=== PATIENT | female | born 1955 | race Caucasian/White ===

== ENCOUNTER → 2016-09-02 | Outpatient (CLI) | payer BC ==
[~2016-09-02] MED LIST: ALBU18002 INH; CTP/1 PO; CTP1 PO; ESCI1TAB10 PO; GLC500 PO; METF-384 PO; OXYC-57 PO; PRM625 PO; SIMV20TA2 PO; VAREPAK PO
[2016-09-02 11:55] LABS: BLOOD UREA NITROGEN 23 mg/dl (7-18); BUN/CREATININE RATIO 18.8 (10-20); CALCIUM 8.5 mg/dl (8.5-10.1); CARBON DIOXIDE 29 mmol/L (21-32); CHLORIDE 110 mmol/L (98-107); GLUCOSE 100 mg/dl (70-99); POTASSIUM 4.3 mmol/L (3.5-5.1); SODIUM 144 mmol/L (136-145)
[2016-09-02 12:08] LABS: ALB/GLOB RATIO 1.1 (0.9-2); ALKALINE PHOSPHATASE 83 U/L (45-117); ALT/SGPT 27 U/L (12-78); AST/SGOT 12 U/L (15-37); CHOLESTEROL 150 mg/dl (0-200); CHOLESTEROL/HDL RATIO 3.8; HDL CHOLESTEROL 39 mg/dl; IMMUNOGLOBULN M 32.3 mg/dL (40-230); LDL CHOLESTEROL CALCULATED 90 mg/dl; TRIGLYCERIDES 107 mg/dl (0-150); VERY LOW DENSITY LIPOPROT CALC 21 mg/dl
[2016-09-02 12:55] LABS: ESTIMATED AVERAGE GLUCOSE 114 mg/dl; HA1C FLAG Normal (Normal)
== END | disposition home or self-care (01) ==
LOC: C.LAB1850 10:20
PROVIDERS: ATTEND Family Medicine
DX: E88.1 Lipodystrophy, not elsewhere classified (principal); D80.3 Selective deficiency of immunoglobulin G [IgG] subclasses; D80.4 Selective deficiency of immunoglobulin M [IgM]

== ENCOUNTER → 2016-09-09 | Outpatient (CLI) | payer BC ==
--- NOTE | 2016-09-09 11:18 | DIAGNOSTIC IMAGING REPORT ---
CHEST 2 VIEWS ROUTINE CLINICAL HISTORY: Z20.1 Tuberculosis [id number] COMPARISON STUDY: 04/29/2010 FINDINGS: The bones soft tissues and hemidiaphragms are normal. The cardiomediastinal silhouette is normal. The lungs are clear. The pulmonary vasculature is normal. IMPRESSION: Negative chest. Electronically signed by: Hima Shaffer M.D. 09/09/2016 11:17 AM Dictated Date/Time: 09/09/2016 11:17 AM
== END | disposition home or self-care (01) ==
LOC: C.RAD1850 10:57
PROVIDERS: ATTEND Specialist
DX: R05 Cough (principal); Z20.1 Contact with and (suspected) exposure to tuberculosis

== ENCOUNTER 2017-01-10 21:27 | Emergency (ER) | payer BC ==
[~2017-01-10] VITALS: Ht 167.6 cm; Wt 79.1 kg
[~2017-01-10 21:27] MED LIST changes: -CTP/1 PO; -METF-384 PO; -OXYC-57 PO; -PRM625 PO
[2017-01-10 21:31] VITALS: TEMP 36.3; Ht 167.6 cm; Wt 79.1 kg
[2017-01-10 22:11] VITALS: O2SAT 99
[2017-01-10] MEDS ORDERED: METF-384 PO (22:27)
[2017-01-10] MEDS ORDERED: CTP/1 PO (22:27)
[2017-01-10] MEDS ORDERED: PERCOCET HOME PACK PO ONE (23:15)
[2017-01-10] MEDS ORDERED: OXYCODONE/ACETAMINOPHEN 5-325 TAB PO ONE (23:15)
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
[2017-01-10] MEDS ORDERED: OXYC-57 PO (23:28)
[2017-01-10] MEDS ORDERED: DIPHTHERIA/TETANUS/PERTUSSIS 0.5 ML SYR/VIAL IM. ONE (23:30)
[2017-01-10 23:45] VITALS: BP 154/104; PULSE 74
== END 2017-01-11 00:10 | disposition home or self-care (01) ==
LOC: C.EDB 21:30 → C.EDD 01-11 00:10
DX: T23.021A Burn of unspecified degree of single right finger (nail) except thumb, initial encounter (principal); T31.0 Burns involving less than 10% of body surface; X10.2XXA Contact with fats and cooking oils, initial encounter; Z23 Encounter for immunization; Z79.899 Other long term (current) drug therapy

== ENCOUNTER → 2017-04-30 | Outpatient (CLI) | payer BC ==
[~2017-04-30] MED LIST changes: -ALBU18002 INH; +CTP/1 PO; -CTP1 PO; +GADAVIST IV PRN; -GLC500 PO; +METF-384 PO; -VAREPAK PO
--- NOTE | 2017-04-30 14:13 | DIAGNOSTIC IMAGING REPORT ---
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 The midline structures including the corpus callosum, brainstem, optic chiasm, pituitary and pineal gland are unremarkable in the sagittal T1 sequence. There is no cerebellar tonsillar herniation. Degenerative changes are seen within the imaged upper cervical spine. No acute intracranial hemorrhage, midline shift, abnormal extra-axial collections, hydrocephalus or intracranial mass identified. Patchy punctate foci of increased T2/FLAIR signal noted within the subcortical and periventricular white matter of the cerebral hemispheres bilaterally, slightly progressed from comparison study 02/10/2013, nicely seen on the coronal FLAIR images. There is no abnormal intra-axial or extra-axial enhancement identified. The major flow voids at the level of the skull base appear patent. Blooming artifact is noted adjacent to the feet for segment right vertebral artery, likely area of prior aneurysm coiling as seen on image 6 of series 5. The orbits are symmetric. Mastoid air cells are clear on the right with trace left mastoid effusion. Normal ethmoid sinus disease. IMPRESSION: 1. No acute intracranial abnormality. 2. Patchy punctate foci of T2/FLAIR prolongation within the subcortical and periventricular white matter of the cerebral hemispheres bilaterally has mildly progressed from comparison study 02/10/2013 suggesting chronic microvascular ischemic changes. 3. Blooming artifact adjacent to the V4 segment right vertebral artery likely reflects site of prior aneurysm coiling. The above report was generated using voice recognition software. It may contain grammatical, syntax or spelling errors. Electronically signed by: Romie Lewis M.D. 04/30/2017 2:12 PM Dictated Date/Time: 04/30/2017 2:01 PM
--- NOTE | 2017-04-30 14:17 | DIAGNOSTIC IMAGING REPORT ---
Brain MRA HISTORY: Z86.79 History of intracranial aneurysm [id number] TECHNIQUE: 3-D [id number] MRA of the brain was performed without contrast. COMPARISON STUDY: Brain MRA 07/08/2009. FINDINGS: Visualized intracranial internal carotid arteries, distal vertebral arteries, and basilar artery are widely patent. There is again noted a focal metallic artifact adjacent to the distal right vertebral artery measuring 5 mm. This likely represents the site of prior aneurysm coiling. There is no significant stenosis, occlusion, or aneurysm seen within the bilateral ACAs, MCAs, or left ADOLESCENT SPECIALIST. No significant change in the mild to moderate multifocal narrowing within the right mid to distal ADOLESCENT SPECIALIST. IMPRESSION: 1. No significant change in the mild to moderate multifocal narrowing in the mid to distal right ADOLESCENT SPECIALIST. 2. There is again noted a focal metallic artifact adjacent to the distal right vertebral artery measuring 5 mm. This likely represents the site of prior aneurysm coiling. Otherwise, no aneurysms identified. Electronically signed by: José Ford M.D. 04/30/2017 2:16 PM Dictated Date/Time: 04/30/2017 1:59 PM
== END | disposition home or self-care (01) ==
LOC: C.MRI 12:30
PROVIDERS: ATTEND Family Medicine
DX: Z86.79 Personal history of other diseases of the circulatory system (principal)

== ENCOUNTER → 2017-05-21 | Outpatient (CLI) | payer BC ==
[~2017-05-21] MED LIST changes: -GADAVIST IV PRN
--- NOTE | 2017-05-22 07:54 | MAMMOGRAPHY REPORT ---
BILATERAL DIGITAL SCREENING MAMMOGRAM TOMOSYNTHESIS WITH CAD: 05/21/2017 CLINICAL HISTORY: Routine screening. Patient has no complaints. TECHNIQUE: Breast tomosynthesis in addition to standard 2D mammography was performed. Current study was also evaluated with a Computer Aided Detection (CAD) system. COMPARISON: Comparison is made to exams dated: 05/20/2016 mammogram, 05/15/2015 mammogram, 4 mammogram, 05/18/2014 mammogram, 05/12/2014 mammogram, and 05/11/2013 mammogram - [facility]. BREAST COMPOSITION: The tissue of both breasts is heterogeneously dense, which may obscure small mas ses. FINDINGS: There is a multilobulated 11 x 8mm mass in the superior posterior right breast, only defin itely seen on the MLO view. Although this could represent a cyst cluster, definitive characterizatio n with targeted ultrasound and possible additional mammographic views are recommended. There is expected architectural distortion in the anterior left breast from prior surgical excision o f a papilloma. No other suspicious mass, architectural distortion or cluster of microcalcifications is seen. IMPRESSION: ACR BI-RADS CATEGORY 0: INCOMPLETE EVALUATION: NEED ADDITIONAL IMAGING EVALUATION The multilobulated 11 x 8mm mass in the superior right breast needs additional evaluation. The patient will be called to schedule an appointment. Approximately 10% of breast cancers are not detected with mammography. A negative mammographic report should not delay biopsy if a clinically suggestive mass is present. Ely Arroyo M.D. ay/:05/21/2017 16:34:16 Legal Operations Manager: Victoria KAPADIA(R)(Sheron)(BELA), [facility] letter sent: Addl Imaging 0 BI-RADS Code: ACR BI-RADS Category 0: Incomplete Evaluation: Need Additional Imaging Evaluation
== END | disposition home or self-care (01) ==
LOC: C.MAMM 10:32
PROVIDERS: ATTEND Family Medicine
DX: Z12.31 Encounter for screening mammogram for malignant neoplasm of breast (principal); N63.10 Unspecified lump in the right breast, unspecified quadrant

== ENCOUNTER → 2017-05-26 | Outpatient (CLI) | payer BC ==
--- NOTE | 2017-05-26 15:20 | MAMMOGRAPHY REPORT ---
ULTRASOUND OF RIGHT BREAST: 05/26/2017 CLINICAL HISTORY: 62-year-old woman called back from recent screening mammogram for an 11 x 8 mm lobu lated mass in the superior right breast on the MLO view. 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 COMPARISON: Comparison is made to exams dated: 05/21/2017 mammogram, 05/20/2016 mammogram, 5 mammogram, 05/12/2014 mammogram, 05/11/2013 mammogram, and 05/08/2012 mammogram - [facility]. FINDINGS: Targeted ultrasound was performed throughout the superior right breast to assess for the lo bulated mammographic mass. In the right 10:00 breast, 6 cm from the nipple, there is a multilobulate d mixed hypoechoic and anechoic cystic appearing mass measuring approximately 7.9 x 4.6 x 10.2 mm. N o increased vascularity is demonstrated. Although this could represent a cyst cluster, a papillary l esion or possibly DCIS could appear similar. Definitive characterization with an ultrasound guided c ore biopsy is recommended. IMPRESSION: ACR BI-RADS CATEGORY 4: SUSPICIOUS - FOLLOW-UP RECOMMENDED Right breast ultrasound guided core biopsy is recommended for a multilobulated cystic appearing mass measuring 10.2 mm in the 10:00 right breast, 6 cm from the nipple, that had increased mammographicall y and is indeterminate. These results and recommendations were discussed with the patient at the time of the exam. She tentat kathleenely scheduled the right breast ultrasound guided core biopsy prior to leaving our department. Ely Arroyo M.D. ay/:05/26/2017 11:27:00 Try Out Person: Ai KAPADIA(R)(M), [facility] letter sent: Abnormal 4/5 BI-RADS Code: ACR BI-RADS Category 4: Suspicious
== END | disposition home or self-care (01) ==
LOC: C.MAMM 09:15
PROVIDERS: ATTEND Family Medicine
DX: N63.10 Unspecified lump in the right breast, unspecified quadrant (principal)

== ENCOUNTER → 2017-06-03 | Outpatient (CLI) | payer BC ==
--- NOTE | 2017-06-03 11:28 | Discharge Instructions ---
Discharge Instructions Procedure Procedure Date: Jun 03, 2017. Reason for visit: Right Breast Mass. Discharge Discharge Date: Jun 03, 2017. Discharge Diagnosis: post right breast ultrasound guided core biopsy Instructions Activity Recommendations: Additional Limitations (see below) Return to School/Work: no limitations Recommended Home Diet: No Limitations Provider Instructions: ACTIVITY RECOMMENDATIONS: * No lifting, pushing, pulling or exercising the affected side for three days. RETURN TO SCHOOL/WORK: * You may return to work/school after the procedure, but do not perform any strenuous activities for 24 to 48 hours. MEDICATIONS: * Tylenol (two 325 mg) every four to six hours if needed for mild pain (if not allergic to Tylenol). DIET: * Resume previous diet. SPECIAL CARE INSTRUCTIONS: * Keep biopsy site dry for 24 hours. May shower after 24 hours, but do not soak (bathe) incision. * May remove Tegaderm (plastic patch) tomorrow AFTER showering. * Leave the steri-strips on for one week. Allow the steri-strips to fall off by themselves. If not off after one week, you may remove them. You may place a Bandaid crosswise over the strips, if desired. * Apply ice 10 minutes on and 10 minutes off as needed. * Wear a bra at bedtime to sleep more comfortably for 2-3 days. * Your referring physician should have the results after approximately 5 to 7 business days. * Call for unusual bleeding, fever, drainage, etc or if you have any questions call [phone] during normal business hours or after hours call Dr Arroyo, . FOLLOW UP VISIT: Follow-up with Referring Physician as scheduled. Allergies Coded Allergies: No Known Allergies (Verified , 10/14/16) Gui Fragoso Recommendations: Call your doctor if: * Temperature above 101 degrees * Pain not relieved by pain medicine ordered * There is increased drainage or redness from any incision * You have any unanswered questions or concerns. Your Doctors Instructions noted above were prepared by provider Ely Arroyo. Patient Signature Section: Patient Instructions Signature Page Matilda Jennings Patient (or Guardian) Signature/Date: I have read and understand the instructions given to me by my caregivers. Caregiver/RN/Doctor Signature/Date: The above-named patient and/or guardian has received patient instructions on this date. + Original Patient Signature Page (only) stays with chart. Please make copy for patient.
--- NOTE | 2017-06-03 15:10 | MAMMOGRAPHY REPORT ---
ULTRASOUND GUIDED BIOPSY RIGHT BREAST: 06/03/2017 CLINICAL HISTORY: Indeterminate multilobulated 10 mm mass in the upper outer posterior right breast, thought to correlate with an increasing mammographic mass. Patient has a history of left breast henry lloma status post excision. Patient presents for ultrasound-guided core needle biopsy. COMPARISON: Comparison is made to exams dated: 05/26/2017 ultrasound, 05/21/2017 mammogram, 6 mammogram, 05/15/2015 mammogram, and 07/19/2014 [facility]. PATIENT CONSENT: The procedure, risks and benefits were discussed with the patient and informed conse nt was obtained both verbally and in writing. Specific risks to this procedure include: bleeding, in fection, puncture of adjacent structure, nontarget biopsy, sampling error, pain, metal allergy and me dication reaction. PROCEDURE DESCRIPTION: A time out was performed and the right breast was agreed as the site of biopsy . The skin was prepped and draped in the usual sterile fashion. The multilobulated partially cystic m ass measuring 10 mm in the 10:00 to 11:00 right breast was chosen as the target for biopsy. Subcutane ous and intraparenchymal 1% buffered lidocaine, with and without epinephrine, was administered as loc al anesthesia. A skin incision was made. Through the incision, 4 samples were taken with a 14 gauge Achieve biopsy device. A ribbon shaped metallic marker was placed at the biopsy site. Hemostasis was achieved after manual compression. The patient tolerated the procedure well and there was no immediat e complication. The samples were sent to the pathology department in an appropriately labeled [facility]. Postprocedure right MLO and XCCL views were obtained. There is a new ribbon-shaped biopsy marker cli p and new focal asymmetry in the upper outer posterior right breast, in the area of previously observ ed multilobulated mass. No focal discrete hematoma is identified and asymmetry most likely represent s a combination of mild bleeding and lidocaine administration. IMPRESSION: ULTRASOUND GUIDED BIOPSY Status post ultrasound-guided core biopsy of an indeterminate 10 mm multilobulated mass in the 10:00 posterior right breast, with biopsy marker clip placed at the site. The patient will receive notification of the biopsy results from her referring physician. Ely Arroyo M.D. ay/:06/03/2017 12:22:31 Station Cook: Ai Knee RT(R)(M), [facility]
--- NOTE | 2017-06-03 15:12 | MAMMOGRAPHY REPORT ---
UNILATERAL RIGHT DIGITAL DIAGNOSTIC MAMMOGRAM TOMOSYNTHESIS: 06/03/2017 CLINICAL HISTORY: Status post ultrasound guided core biopsy of a multilobulated hypoechoic 10 mm mass in the upper outer 10:00 right breast. Please refer to the report from right breast ultrasound guided core biopsy performed at the same time for full detail. IMPRESSION: POST PROCEDURE IMAGING FOR MARKER PLACEMENT Please refer to the report from right breast ultrasound guided core biopsy performed at the same time for full detail. Approximately 10% of breast cancers are not detected with mammography. A negative mammographic report should not delay biopsy if a clinically suggestive mass is present. Ely Arroyo M.D. ay/:06/03/2017 11:29:57 Medical Office Worker: Ai KAPADIA(Brady)(M), [facility] BI-RADS Code: Post Procedure Imaging For Marker Placement
== END | disposition home or self-care (01) ==
LOC: C.MAMM 10:14
PROVIDERS: ATTEND Family Medicine
DX: N63.10 Unspecified lump in the right breast, unspecified quadrant (principal); N60.11 Diffuse cystic mastopathy of right breast; N60.81 Other benign mammary dysplasias of right breast

== ENCOUNTER 2022-04-17 09:59 | Inpatient (IN) ==
[2022-04-17] MEDS ORDERED: ACETAMINOPHEN 500 MG TAB PO STA (10:47)
[2022-04-17] MEDS ORDERED: ALBUT/IPRATROP 3MG/0.5MG NEB 3 ML VIAL NEB ONE (10:47)
[2022-04-17] MEDS ORDERED: SODIUM CHLORIDE 0.9% 1000ML 1,000 ML IV ONE (10:47)
[2022-04-17] MEDS ORDERED: dexAMETHasone**PF** 10 MG/ML VIAL IV ONE (10:47)
--- NOTE | 2022-04-17 10:50 | Emergency Department Note ---
Impression & Plan COPD with acute exacerbation, Elevated troponin, Pulmonary edema ED Provider Note Name: LYRIC MARTÍNEZ Age: 66 Sex: F Arrives Via: Walk-In Informant: Patient ED Provider: Bear Monroy MD Chief Complaint: Shortness of breath Impression: As per impressions above Medical Decision Makin-year-old female with a history of severe COPD though no significant CAD history arrives for evaluation of significantly worsening shortness of breath over the last few days. She also notes chills and low-grade fevers. On arrival patient is in significant distress she was tachycardic she has a low-grade fever and has diffuse wheezing all lung burn[place]. She was given an hour-long neb along with some IV steroids with presumption of COPD. Her chest x-ray however does show diffuse congestion consistent with pulmonary edema. Her EKG is unchanged from previous. She does have a evidence of elevated troponin as well. Unclear if this is all just secondary to viral infection, not COVID or flu Versus actual cardiac cause of pulmonary edema. Given the viral like illness, this could be a Cardiomyopathy which would go along with pulmonary edema, and copd flare se condary to viral as well. She was given aspirin but will hold off on heparin until further testing. I will note the patient appears much improved after initial neb. given her history of COPD the findings on examination and the fact she is improving with neb I think holding off on CTA at this time is reasonable. I have a low index of suspicion for PE given her improvement. Prior Medical Record and Triage/Nursing Notes reviewed by Me Additional history obtained from chart Differentials:Reactive airway disease, pneumonia, pneumothorax, COPD, CHF, infections, cardiac ischemia, pulmonary embolism, musculoskeletal, gastrointestinal, as well as other pathologies. Vital Signs: reviewed and remarkable for mild hypoxia Interventions: DuoNeb, aspirin, Solu-Medrol IV Labs:Reviewed and remarkable for elevated troponin Imagin view chest x-ray bilateral pulmonary infiltrates/edema EKG:Interpretation by me. Indication shortness of breath. Sinus tachycardia at 101 bpm and a QTC of 526. There is no ectopy nor ischemia. There is a left bundle branch block. When compared to EKG from May 18, 2019 there is not a significant change. Cardiac/Tele Monitoring: Cardiac Monitoring: An Order was placed for continuous cardiac monitoring. The monitor shows a rate of 90 with a normal sinus rhythm. Consults:Hospitalist Plan: Disposition: Hospitalization Condition: Good History of Present Illness:66-year-old female arrives for evaluation of illness. Patient with several days worsening fevers, chills, body aches, cough, congestion. Over the last day she notes she is getting significantly increased shortness of breath. She has a mild headache. Denies any neck stiffness or pain. Denies any visual changes, neurologic deficits or other concerning signs or symptoms. She is currently having no chest pain, abdominal pain, nausea, vomiting, back pain, urinary/bowel symptoms or other concerning signs or sy mptoms. No medications prior to arrival. Patient does have a history of COPD and notes she is started wheezing more over the last few days. Exertion makes worse and rest makes better. ROS: See above HPI for pertinent positives & negatives. A total of 10 systems reviewed and were otherwise negative. Past Medical History:See Below Past Surgical History:See Below Family History:See Below Social History:See Below Home Medications:See Below Allergies:ndka Vitals:Blood Pressure: 161/107, Pulse 95, RR 14, T 36.6C, O2 92% on RA Physical Exam: GENERAL: Patient is unwell appearing and in moderate distress. EYES: No scleral icterus, unremarkable pupils. ENT: Mucous membranes dry, no nasal congestion. NECK: No masses appreciated, nomeningismus, trachea is midline. RESPIRATORY: Tachypnea/dyspnea with diffuse wheezing and tight lung sounds. CARDIOVASCULAR: Tachy.No murmurs, rubs, gallops appreciated. GASTROINTESTINAL: Abdomen soft, non-tender, no peritonitis.Bowel sounds positive.No masses appreciated. BACK: No midline tenderness, no CVA tenderness EXTREMITIES: Normal motion all extremities, no cyanosis, no edema. NEUROLOGIC: Alert and oriented, no acute motor or sensory deficits, no focal weakness, cranial nerves grossly intact. SKIN: No rash, no jaundice, no diaphoresis. PSYCH: Appropriate GCS: 15 ED Course: Times/Reassessments: Patient is much improved after nebulizer treatment. We discussed her findings and the need for further work-up and she is agreeable to hospitalization. 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 no medications currently. No treatments needed at this time IgM deficiency follows with PCP LBBB (left bundle branch block) [facility] Prediabetes on metformin, last AIC 5.7% on 04/13/19 Sensorineural hearing loss of both ears Surgical History H/O breast biopsy RIGHT/LEFT History of biopsy of bladder History of cataract surgery R AND L History of cerebral aneurysm repair Endovascular repair PICA aneurysm (2005) History of colonoscopy History of cystoscopy History of elbow surgery RT History of partial hysterectomy History of surgery BONE SPUR REMOVED FROM COCCYX History of tooth extraction S/P tubal ligation Family History Grandmother (Paternal) Family history of diabetes mellitus Mother Diabetes Hypertension Stroke Brother Family history of diabetes mellitus Father Prostate cancer Melanoma Aortic aneurysm Hypertension Grandfather (Paternal) Lung cancer Denies family history of Ovarian cancer Breast cancer Colorectal cancer Social History Smoking Status: Current every day smoker Tobacco Type: Cigarettes Age Quit Using Tobacco: 65; Cigarettes Per Day: 20; Second Hand Exposure: No; Hx Alcohol Use: No Hx Substance Use: No Preferred Language: Welsh Communication Ability: Effective Visual Impairment: No Limitations Hearing Ability: Normal Plate Finisher Required: No Beliefs That Will Affect Care: None marital status: Current Living Situation: Alone current occupational status: retired Feels Safe at Home: Yes Childhood Exposure to Second-Hand Smoke: Yes Diet Comment: regular caffeine: Yes during the past year weight has: remained stable Dental Care, Regularly: Yes Physical Activity Frequency: 1-2 Times per Week Seatbelt Use: always Sunscreen Use: Yes Assistive Devices: None Allergies Allergies Allergy/AdvReac Type Severity Reaction Status Date / Time No Known Drug Allergies Allergy Verified 11/22/21 13:25 Home Meds Home Medications Medication Instructions Recorded Confirmed lisinopril 5 mg tablet 5 mg PO QAM 11/22/21 04/17/22 Previous Rx's Medication Instructions Recorded albuterol sulfate 90 mcg/actuation 1 puff inhalation Q4H PRN sob #8.5 04/05/21 aerosol inhaler (Ventolin HFA) grams fluticasone fur. 100 mcg-umeclid 1 inh inhalation QAM #3 Inhalers 04/05/21 62.5 mcg-vilant 25 mcg inhalat.powder (Trelegy Ellipta) metoprolol succinate 25 mg 25 mg PO QAM #90 tabs 09/25/21 tablet,extended release 24 hr metformin 1,000 mg tablet 1,000 mg PO QAM #90 tabs 11/05/21 simvastatin 20 mg tablet 20 mg PO QAM #90 tabs 11/16/21 valacyclovir 1 gram tablet 2,000 mg PO BID PRN Cold Sores #30 11/22/21 tabs venlafaxine 150 mg 150 mg PO DAILY #30 caps 11/22/21 capsule,extended release 24 hr clonidine HCl 0.1 mg tablet 0.1 mg PO BID #180 tabs 02/15/22 Results & Data (ED) Vital Signs Vital Signs - 24 hr 04/17/22 10:04 04/17/22 10:12 04/17/22 10:30 Temperature 36.6 C Temperature Source Temporal Artery Scan Pulse Rate 95 H Pulse Rate [Apical] Respiratory Rate 14 Respiratory Effort / Characteristics Respiratory Depth Blood Pressure 161/107 H Blood Pressure [Left Arm] Blood Pressure Mean 125 Blood Pressure Mean [Left Arm] Pulse Oximetry 95 93 92 Oxygen Delivery Method Room Air Room Air Room Air Sepsis Recent Fever Within 48 Hours No Sepsis New/Unexplained Change in Mental Status No Sepsis Action Taken by Nursing No Action Required 04/17/22 10:48 04/17/22 11:52 04/17/22 12:00 Temperature Temperature Source Pulse Rate Pulse Rate [Apical] 88 86 85 Respiratory Rate 28 H 16 18 Respiratory Effort / Characteristics Non-Labored Spontaneous Non-Labored Spontaneous Non-Labored Spontaneous Respiratory Depth Normal Normal Blood Pressure Blood Pressure [Left Arm] 145/102 H 146/106 H Blood Pressure Mean Blood Pressure Mean [Left Arm] 116 119 Pulse Oximetry 92 98 99 Oxygen Delivery Method Room Air Room Air Room Air Sepsis Recent Fever Within 48 Hours Sepsis New/Unexplained Change in Mental Status Sepsis Action Taken by Nursing Laboratory Data Result diagrams: 04/18/22 03:19 04/18/22 03:19 Lab Results 04/17/22 04/17/22 04/17/22 Range/Units 10:20 10:20 10:20 WBC 8.95 (4.8-10.8) K/ul RBC 4.08 (3.93-5.22) M/uL Hgb 13.5 (12.0-16.0) g/dl Hct 40.5 (34.1-44.9) % MCV 99.3 (80.0-100.0) fL MCH 33.1 (25.0-34.0) pg MCHC 33.3 (32.0-36.0) g/dL RDW Std Deviation 46.7 H (36.4-46.3) fL RDW Coeff of Trav 12.8 (11.5-14.5) % Plt Count 357 (130-400) K/uL MPV 10.7 (9.4-12.3) fL Immature Gran % (Auto) 0.3 % Neut % (Auto) 71.2 % Lymph % (Auto) 22.6 % Traill % (Auto) 5.6 % Eos % (Auto) 0.0 % Baso % (Auto) 0.3 % Neut # (Auto) 6.37 (1.4-6.5) K/uL Lymph # (Auto) 2.02 (1.2-3.4) K/uL Traill # (Auto) 0.50 (0.24-0.82) K/uL Eos # (Auto) 0.00 (0-0.50) K/uL Baso # (Auto) 0.03 (0-0.2) K/uL Immature Gran # (Auto) 0.03 H (0.00-0.02) K/uL Sodium 143 (136-145) mmol/L Potassium 3.8 (3.5-5.1) mmol/L Chloride 108 H (98-107) mmol/L Carbon Dioxide 26 (21-32) mmol/L Anion Gap 9 (3-11) BUN 20 (6-23) mg/dl Creatinine 1.05 (0.6-1.2) mg/dl Est Cr Clr Drug Dosing 52.8 ml/min Est GFR ( Amer) 63.2 ml/min Est GFR (Non-Af Amer) 54.5 ml/min BUN/Creatinine Ratio 19.0 (10-20) Glucose 103 H (70-99(Fasting)) mg/dl Lactate (0.4-2.0) mmol/L Calcium 9.5 (8.5-10.1) mg/dl Magnesium 2.1 (1.7-2.4) mg/dl Troponin I High Sens 40.2 H (0-14) pg/ml Procalcitonin < 0.05 (0-0.5) ng/ml Adenovirus (PCR) (NotDetected) B. pertussis DNA (PCR) (NotDetected) B.parapertussis DNA PCR (NotDetected) C. pneumoniae DNA (PCR) (NotDetected) Coronavirus OC43 (PCR) (NotDetected) Coronavirus HKU1 (PCR) (NotDetected) Coronavirus 229E (PCR) (NotDetected) SARS-CoV-2 (PCR) (Negative) Coronavirus NL63 (PCR) (NotDetected) Human Metapneumovir PCR (NotDetected) Influenza Type A (PCR) (Neg) Influenza Type B (PCR) (Neg) M. pneumoniae (PCR) (NotDetected) Parainfluenza 1 (PCR) (NotDetected) Parainfluenza 2 (PCR) (NotDetected) Parainfluenza 3 (PCR) (NotDetected) Parainfluenza 4 (PCR) (NotDetected) RSV (RT-PCR) (Neg) RSV (PCR) (NotDetected) Entero/Rhino (PCR) (NotDetected) 04/17/22 04/17/22 04/17/22 Range/Units 11:22 11:22 11:38 WBC (4.8-10.8) K/ul RBC (3.93-5.22) M/uL Hgb (12.0-16.0) g/dl Hct (34.1-44.9) % MCV (80.0-100.0) fL MCH (25.0-34.0) pg MCHC (32.0-36.0) g/dL RDW Std Deviation (36.4-46.3) fL RDW Coeff of Trav (11.5-14.5) % Plt Count (130-400) K/uL MPV (9.4-12.3) fL Immature Gran % (Auto) % Neut % (Auto) % Lymph % (Auto) % Traill % (Auto) % Eos % (Auto) % Baso % (Auto) % Neut # (Auto) (1.4-6.5) K/uL Lymph # (Auto) (1.2-3.4) K/uL Traill # (Auto) (0.24-0.82) K/uL Eos # (Auto) (0-0.50) K/uL Baso # (Auto) (0-0.2) K/uL Immature Gran # (Auto) (0.00-0.02) K/uL Sodium (136-145) mmol/L Potassium (3.5-5.1) mmol/L Chloride (98-107) mmol/L Carbon Dioxide (21-32) mmol/L Anion Gap (3-11) BUN (6-23) mg/dl Creatinine (0.6-1.2) mg/dl Est Cr Clr Drug Dosing ml/min Est GFR ( Amer) ml/min Est GFR (Non-Af Amer) ml/min BUN/Creatinine Ratio (10-20) Glucose (70-99(Fasting)) mg/dl Lactate 1.2 (0.4-2.0) mmol/L Calcium (8.5-10.1) mg/dl Magnesium (1.7-2.4) mg/dl Troponin I High Sens (0-14) pg/ml Procalcitonin (0-0.5) ng/ml Adenovirus (PCR) Not Detected (NotDetected) B. pertussis DNA (PCR) Not Detected (NotDetected) B.parapertussis DNA PCR Not Detected (NotDetected) C. pneumoniae DNA (PCR) Not Detected (NotDetected) Coronavirus OC43 (PCR) Not Detected (NotDetected) Coronavirus HKU1 (PCR) Not Detected (NotDetected) Coronavirus 229E (PCR) Not Detected (NotDetected) SARS-CoV-2 (PCR) NEGATIVE Not Detected (Negative) Coronavirus NL63 (PCR) Not Detected (NotDetected) Human Metapneumovir PCR Not Detected (NotDetected) Influenza Type A (PCR) Negative Not Detected (Neg) Influenza Type B (PCR) Negative Not Detected (Neg) M. pneumoniae (PCR) Not Detected (NotDetected) Parainfluenza 1 (PCR) Not Detected (NotDetected) Parainfluenza 2 (PCR) Not Detected (NotDetected) Parainfluenza 3 (PCR) Not Detected (NotDetected) Parainfluenza 4 (PCR) Not Detected (NotDetected) RSV (RT-PCR) Negative (Neg) RSV (PCR) Not Detected (NotDetected) Entero/Rhino (PCR) Not Detected (NotDetected) Administered Medications Albuterol (Albut/Ipratrop 3mg/0.5mg Neb 3 Ml Vial) 3 ml INH Q6R KELLIE Stop: 05/17/22 15:08 Last Admin: 04/18/22 07:08 Dose: 3 ml Documented By: Admin: 04/18/22 00:39 Dose: 3 ml Documented By: Admin: 04/17/22 20:10 Dose: 3 ml Documented By: Admin: 04/17/22 15:58 Dose: 3 ml Documented By: ZOIE Clonidine HCl (Clonidine Hcl 0.1 Mg Tab) 0.1 mg PO BID KELLIE Stop: 05/17/22 20:59 Last Admin: 04/18/22 08:21 Dose: 0.1 mg Documented By: Admin: 04/17/22 20:14 Dose: 0.1 mg Documented By: Fluticasone Furoate (Fluticasone Furoate 100mcg 14 Puffs/Inhaler) 1 puffs INH DAILY KELLIE Stop: 05/18/22 08:59 Last Admin: 04/18/22 08:22 Dose: 1 puffs Documented By: OBED Guaifenesin (Guaifenesin 600 Mg Tabcr) 1,200 mg PO BID KELLIE Stop: 05/17/22 20:59 Last Admin: 04/18/22 08:21 Dose: 1,200 mg Documented By: Admin: 04/17/22 20:14 Dose: 1,200 mg Documented By: Doxycycline Hyclate 100 mg/ (Dextrose) 110 mls @ 50 mls/hr IV Q12H KELLIE Stop: 04/20/22 23:59 Last Infusion: 04/18/22 03:16 Dose: 0 mls/hr Documented By: Admin: 04/18/22 00:53 Dose: 50 mls/hr Documented By: STEVIE Lisinopril (Lisinopril 5 Mg Tab) 5 mg PO QAM [facility] Stop: 05/18/22 08:59 Last Admin: 04/18/22 08:22 Dose: 5 mg Documented By: OBED Metoprolol Succinate (Metoprolol Succ 25mg Ext Rel Tab) [facility] [place] Stop: 05/18/22 08:59 Last Admin: 04/18/22 08:21 Dose: 25 mg Documented By: OBED Simvastatin (Simvastatin 20 Mg Tab) [facility] [place] Stop: 05/18/22 08:59 Last Admin: 04/18/22 08:23 Dose: 20 mg Documented By: OBED Umeclidinium/Vilanterol (Umeclidinium/Vilanterol 62.5/25mcg 7 Puffs/Inhaler) 1 puffs INH DAILY KELLIE Stop: 05/18/22 08:59 Last Admin: 04/18/22 08:23 Dose: 1 puffs Documented By: OBED Venlafaxine HCl (Venlafaxine Hcl Xr 150 Mg Capxr) 150 mg PO DAILY KELLIE Stop: 05/18/22 08:59 Last Admin: 04/18/22 08:22 Dose: 150 mg Documented By: OBED Discontinued Medications Acetaminophen (Acetaminophen 500 Mg Tab) 1,000 mg PO NOW STA Stop: 04/17/22 10:48 Last Admin: 04/17/22 11:35 Dose: 1,000 mg Documented By: ROSA Albuterol (Albut/Ipratrop 3mg/0.5mg Neb 3 Ml Vial) 12 ml NEB ONE ONE; Protocol Stop: 04/17/22 10:48 Last Admin: 04/17/22 11:50 Dose: 12 ml Documented By: YAZMIN Aspirin (Aspirin 81 Mg Chew) 324 mg PO NOW STA Stop: 04/17/22 12:19 Last Admin: 04/17/22 12:30 Dose: 324 mg Documented By: ROSA Dexamethasone Sodium Phosphate (DexamethasonePf 10 Mg/Ml Vial) 10 mg IV NOW ONE Stop: 04/17/22 10:48 Last Admin: 04/17/22 11:35 Dose: 10 mg Documented By: ROSA Furosemide (Furosemide Inj 20 Mg/2 Ml Vial) 20 mg IV ONE ONE Stop: 04/17/22 14:04 Last Admin: 04/17/22 14:43 Dose: 20 mg Documented By: [id number] Sodium Chloride (Nss 1000ml) 1,000 mls @ 999 mls/hr IV .Q1H1M ONE Stop: 04/17/22 11:47 Last Infusion: 04/17/22 19:38 Dose: 0 mls/hr Documented By: Infusion: 04/17/22 12:13 Dose: 0 mls/hr Documented By: Admin: 04/17/22 11:37 Dose: 999 mls/hr Documented By: ROSA Doxycycline Hyclate 100 mg/ (Dextrose) 110 mls @ 50 mls/hr IV NOW STA Stop: 04/17/22 14:48 Last Infusion: 04/17/22 15:34 Dose: 0 mls/hr Documented By: [id number] Admin: 04/17/22 12:54 Dose: 50 mls/hr Documented By: ROSA Methylprednisolone 40 mg/ (Syringe) 0.64 mls @ 1.5 mls/min IV Q8H KELLIE Stop: 05/17/22 17:59 Last Admin: 04/18/22 00:53 Dose: 1.5 mls/min Documented By: Admin: 04/17/22 17:22 Dose: 1.5 mls/min Documented By: [id number] Imaging Data Radiologist's Impression: Chest X-Ray 04/17/22 10:48 XR chest 1V portable CLINICAL HISTORY: fever, shob, cough COMPARISON STUDY: Chest radiograph August 19, 2019. Chest CT May 03, 2021. FINDINGS: There is no pneumothorax. Small bilateral pleural effusions are noted with bibasilar opacities. Interstitial thickening favors pulmonary edema. Mild cardiomegaly is noted. IMPRESSION: 1. Interstitial thickening suggestive of pulmonary edema. 2. Small bilateral pleural effusions. Associated bibasilar opacities favor atelectasis however pneumonia could appear similar. Radiographic follow-up is recommended. ACT 112: Negative or not required by law. Electronically signed by: Pablo Mcgowan M.D. 04/17/2022 11:27 AM Discharge Plan Visit Data Chief Complaint: Shortness of Breath/Dyspnea Stated Complaint: TROUBLE CATCHING BREATH, FEVER, HEADACHE ED Provider: Bear Monroy Discharge Problem: COPD with acute exacerbation, Elevated troponin, Pulmonary edema Patient Disposition: Admitted As Inpatient Discharge Instructions Interventions: ED Discharge Assessment Last Done: 04/17/22 14:20 : Pulmonary edema Qualifiers: Chronicity: acute Qualified Code(s): J81.0 - Acute pulmonary edema
[2022-04-17 11:12] LABS: Basophils # (auto) 0.03 K/uL (0-0.2); Basophils % (auto) 0.3 %; Hematocrit (blood only) 40.5 % (34.1-44.9); Hemoglobin 13.5 g/dl (12.0-16.0); Immature Granulocytes # (auto) 0.03 K/uL (0.00-0.02); Immature Granulocytes % (auto) 0.3 %; Lymphocytes # (auto) 2.02 K/uL (1.2-3.4); Lymphocytes % (auto) 22.6 %; Mean Corpuscular Hemoglobin 33.1 pg (25.0-34.0); Mean Corpuscular Hgb Conc 33.3 g/dL (32.0-36.0); Mean Corpuscular Volume 99.3 fL (80.0-100.0); Mean Platelet Volume 10.7 fL (9.4-12.3); Monocytes % (auto) 5.6 %; Neutrophils # (auto) 6.37 K/uL (1.4-6.5); Neutrophils % (auto) 71.2 %; Platelet Count 357 K/uL (130-400); RDW Coefficient of Variation 12.8 % (11.5-14.5); RDW Standard Deviation 46.7 fL (36.4-46.3); Red Blood Count 4.08 M/uL (3.93-5.22); White Blood Count 8.95 K/ul (4.8-10.8)
--- NOTE | 2022-04-17 11:29 | XRay Report ---
XR chest 1V portable CLINICAL HISTORY: fever, shob, cough COMPARISON STUDY: Chest radiograph August 19, 2019. Chest CT May 03, 2021. FINDINGS: There is no pneumothorax. Small bilateral pleural effusions are noted with bibasilar opacit ies. Interstitial thickening favors pulmonary edema. Mild cardiomegaly is noted. IMPRESSION: 1. Interstitial thickening suggestive of pulmonary edema. 2. Small bilateral pleural effusions. Associated bibasilar opacities favor atelectasis however pneum onia could appear similar. Radiographic follow-up is recommended. ACT 112: Negative or not required by law. Electronically signed by: Pablo Mcgowan M.D. 04/17/2022 11:27 AM
[2022-04-17 11:38] LABS: Troponin I High Sensitivity 40.2 pg/ml (0-14)
[2022-04-17 11:43] LABS: Calcium 9.5 mg/dl (8.5-10.1); Creatinine Clr Calc Pharmacy 52.8 ml/min; Est GFR (African American) 63.2 ml/min; Est GFR (Non-African American) 54.5 ml/min; Magnesium 2.1 mg/dl (1.7-2.4); Potassium 3.8 mmol/L (3.5-5.1)
[2022-04-17 12:06] LABS: Influenza A virus by PCR Negative (Neg); Influenza B virus by PCR Negative (Neg); RSV by PCR Negative (Neg); SARS CoV2 RNA(COVID-19) InHosp NEGATIVE (Negative)
--- NOTE | 2022-04-17 12:17 | History & Physical Report ---
Date of Service April 17, 2022 Assessment & Plan (1) COPD exacerbation: Plan: - Patient has 5 days of flulike symptoms including fever/chills, cough, congestion, shortness of breath, body aches. - History of COPD, has rescue inhaler as needed, has not required for many months but has been relying on this week, as well as her Trelegy which she also uses as needed, however has been taking daily this week with minimal alleviation. - CXR shows interstitial thickening stress of pulmonary edema, bibasilar atelectasis, no obvious pneumonia. - Labs are largely unrevealing, the without leukocytosis, elevated Pro-Félix, lactate. - In the ED, received nebulizer treatment and 10 mg IV dexamethasone and feels slightly better than she did on arrival. - Treat with Solu-Medrol 40 mg every 8 hours, DuoNebs scheduled and as needed throughout the night, continue home inhalers, doxycycline twice daily (QTC of 523). - She has no history of CAD or heart failure, but CXR is indicative of pulmonary edema, therefore will give low-dose of IV Lasix to see if this alleviates any of her symptoms. - COVID/flu/RSV negative, however with symptoms suspicious of viral infection, will order bio fire respiratory panel. - Mucinex, Tylenol for supportive care. (2) Elevated troponin: Plan: - Elevated at 40, repeat 2 hours later 43, will trend while admitted and obtain echo. - Currently chest pain-free, but has had several episodes of "elephant on my chest" that lasted for several hours over the past several months, which is certainly concerning for underlying CAD/unstable angina. Patient notes it does come on with both activity and rest. - EKG: Normal sinus rhythm Possible Left atrial enlargement Left axis deviation Left bundle branch block Abnormal ECG When compared with ECG of 17-APR-2022 10:16, (unconfirmed) No significant change was found - LBBB is not a new finding, previously seen on EKG from 2018. - He previously followed with cardiology, last seen in 2019 for LBBB and atypical chest discomfort, at that point was only occurring at rest. * Nuclear stress test August 2019: Abnormal, suggesting anteroseptal infarction based lateral infarct, moderately reduced LV SF, EF 39% with global hypokine sis. * Echo September 2019: Lownormal LV systolic function with no regional wall motion abnormalities. Mild-moderate MR. - Consult cardiology. (3) History of tobacco use: Plan: - Currently smoking 1/3 pack/day and declines nicotine patch while admitted. - Patient educated on tobacco cessation to avoid further COPD exacerbations and hospitalizations. (4) Bladder neoplasm of uncertain malignant potential: Plan: - History of such, undergoes surveillance cystoscopies, last on 02/06/2022. We will continue to follow-up annually. (5) Prediabetes: Plan: - Hold metformin. A1c in October was 5.9%. - Recheck A1c in AM. Will hold off on Accu-Cheks/sliding scale insulin for now. (6) Dyslipidemia: Plan: - Continue simvastatin. (7) Hypertension: Plan: - Continue clonidine 0.1 mg twice daily, metoprolol 25 mg in a.m., lisinopril 5 mg in AM. (8) Depression with anxiety: Plan: - Continue venlafaxine. Plan - Admit to med/telemetry. - SCDs for DVT PPx. - DNR/DNI. History of Present Illness Chief Complaint: Flulike symptoms x5 days Primary Care Provider: Anabela Echevarria DO Matilda Jennings is a 66-year-old female with a past medical history significant for COPD, bladder cancer, depression and anxiety, dyslipidemia, hypertension, who presents today with shortness of breath complaints of feeling generally ill. Starting Friday, she developed body aches, cough, and nasal congestion. Over the next day or so, she began to experience chills and felt like she had a fever at home. Her symptoms have gradually worsened and she is feeling short of breath and having a hard time laying flat due to shortness of breath and cough. No one at home is sick and she denies any known exposure to COVID or flu positive people. Does have a history of COPD and continues to smoke 1/3 pack/day, has Trelegy inhaler prescribed once daily with rescue inhaler as needed. She typically does not use either of these, but for the past week has been relying on both with minimal improvement. She is becoming winded with minimal activity and can no longer take care of her self at home. Patient denies any specific chest pain at this moment or over the past few days, but does report for the past several months she has had chest fullness "like an elephant is on my chest" that last for several hours before going away on its own. This happens both at rest and with activity it does not seem to be exacer bated by either. Again, not having any current chest pain, back pain, shoulder/arm/neck/jaw pain. No nausea, vomiting, abdominal pain, urinary symptoms. Upon presentation to the ED, she is mildly hypertensive, otherwise vital signs within normal limits and stable. SpO2 >90% on room air. Labs largely unremarkable, she does not have an elevated WBC, elevated Pro-Félix, and is COVID/flu/RSV negative. Initial troponin elevated at 40, repeat troponin slightly increased to 43. Her CXR shows interstitial thickening suggestive of pulmonary edema and small bilateral pleural effusions. Allergies Allergy/AdvReac Type Severity Reaction Status Date / Time No Known Drug Allergies Allergy Verified 11/22/21 13:25 Home Medications Medication Instructions Recorded Confirmed Type albuterol sulfate 90 mcg/actuation 1 puff inhalation Q4H PRN sob #8.5 04/05/21 04/17/22 Rx aerosol inhaler (Ventolin HFA) grams fluticasone fur. 100 mcg-umeclid 1 inh inhalation QAM #3 Inhalers 04/05/21 04/17/22 Rx 62.5 mcg-vilant 25 mcg inhalat.powder (Trelegy Ellipta) metformin 1,000 mg tablet 1,000 mg PO QAM #90 tabs 11/05/21 04/17/22 Rx valacyclovir 1 gram tablet 2,000 mg PO BID PRN Cold Sores #30 11/22/21 04/17/22 Rx tabs venlafaxine 150 mg 150 mg PO DAILY #30 caps 11/22/21 04/17/22 Rx capsule,extended release 24 hr clonidine HCl 0.1 mg tablet 0.1 mg PO BID #180 tabs 02/15/22 04/17/22 Rx sacubitril 24 mg-valsartan 26 mg 1 tab PO BID #60 tabs 04/19/22 Rx tablet (Entresto) aspirin 81 mg tablet,delayed 81 mg PO QAM 30 days #30 tabs 04/20/22 Rx release atorvastatin 40 mg tablet 40 mg PO HS 30 days #30 tabs 04/20/22 Rx empagliflozin 10 mg tablet 10 mg PO DAILY 30 days #30 tabs 04/20/22 Rx (Jardiance) furosemide 40 mg tablet 40 mg PO QAM 30 days #30 tabs 04/20/22 Rx metoprolol succinate 50 mg 50 mg PO QAM 30 days #30 tabs 04/20/22 Rx tablet,extended release 24 hr spironolactone 25 mg tablet 25 mg PO QAM 30 days #30 tabs 04/20/22 Rx Past Med/Surg History Medical History (Updated 04/18/22 @ 17:17 by Juan M Perla MD) Arthritis Bladder cancer Dx'ed Apr 2019 Borderline glaucoma Follows with eye doctor routinely- no current issues/ stable CAD (coronary artery disease) Cardiomyopathy Cervical spondylosis side to side ROM limitations COPD (chronic obstructive pulmonary disease) stable Depression with anxiety Dyslipidemia History of cold sores Valtrex PRN (no recent issues) History of intracranial aneurysm initial cerebral aneurysm "self clotted" without needing intervention, 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 no medications currently. No treatments needed at this time IgM deficiency follows with PCP LBBB (left bundle branch block) [facility] Prediabetes on metformin, last AIC 5.7% on 04/13/19 Sensorineural hearing loss of both ears Surgical History H/O breast biopsy RIGHT/LEFT History of biopsy of bladder History of cataract surgery R AND L History of cerebral aneurysm repair Endovascular repair PICA aneurysm (2005) History of colonoscopy History of cystoscopy History of elbow surgery RT History of partial hysterectomy History of surgery BONE SPUR REMOVED FROM COCCYX History of tooth extraction S/P tubal ligation Family History Grandmother (Paternal) Family history of diabetes mellitus Mother Diabetes Hypertension Stroke Brother Family history of diabetes mellitus Father Prostate cancer Melanoma Aortic aneurysm Hypertension Grandfather (Paternal) Lung cancer Denies family history of Ovarian cancer Breast cancer Colorectal cancer Social History Smoking Status: Current every day smoker Tobacco Type: Cigarettes Age Quit Using Tobacco: 65; Cigarettes Per Day: 20; Second Hand Exposure: No; Hx Alcohol Use: No Hx Substance Use: No Preferred Language: Mohawk Communication Ability: Effective Visual Impairment: No Limitations Hearing Ability: Normal [place] Washer Required: No Beliefs That Will Affect Care: None marital status: Current Living Situation: Alone current occupational status: retired Feels Safe at Home: Yes Childhood Exposure to Second-Hand Smoke: Yes Diet Comment: regular caffeine: Yes during the past year weight has: remained stable Dental Care, Regularly: Yes Physical Activity Frequency: 1-2 Times per Week Seatbelt Use: always Sunscreen Use: Yes Assistive Devices: None Review of Systems Review of Systems: Constitutional: Fever and chills, myalgias, fatigue x5 days; no weakness, anorexia, night sweats Eyes: No diplopia, no worsening or blurred vision ENT: normal hearing, no trouble swallowing Respiratory: Cough productive of sputum, shortness of breath with exertion x5 days Cardiovascular: Ongoing chest pressure that last for several hours times several months, none at present; no chest pain, tightness or palpitations Abdomen: No pain, nausea, vomiting, diarrhea or constipation : Denies dysuria, hematuria, increased urgency/frequency, urinary retention Musculoskeletal: No joint pain, calf pain, swelling Neurologic: No weakness, numbness/tingling, or balance problems Psychiatric: No anxiety or depression Skin: No rash or itch Physical Exam Physical Exam: General: awake, alert, no apparent distress but anxious appearing at times Head: Normocephalic, atraumatic ENT: PERRL, EOMI, no pharyngeal exudate, mucous membranes moist Chest: Expiratory wheezes heard throughout lung [place], lung sounds decreased at bilateral bases, dyspneic shortly after completing breathing treatment, however now on cell phone and conversating more easily and comfortably Cardiac: Regular rate and rhythm, no murmur, no JVD, normal peripheral pulses, good capillary refill Abdominal: NABS x 4 quadrants, soft, nontender to palpation, no rebound, guarding or tenderness Extremities: Normal inspection, no peripheral edema or erythema, calfs nontender to palpation Psych: Normal mood and affect Neuro: AAO x 3, strength intact bilaterally and rated 5/5, no motor deficits, speech is clear, no peripheral sensory deficits Skin: no rash or erythema Results & Data Results & Data ([facility]) Vital Signs (Past 12 Hours) Vital Signs Temp Pulse Pulse Resp BP BP Pulse Ox 04/17/22 12:00 85 18 146/106 H 99 04/17/22 11:52 86 16 98 04/17/22 10:48 88 28 H 145/102 H 92 04/17/22 10:30 92 04/17/22 10:12 93 04/17/22 10:04 36.6 C 95 H 14 161/107 H 95 O2 Del Method 04/17/22 12:00 Room Air 04/17/22 11:52 Room Air 04/17/22 10:48 Room Air 04/17/22 10:30 Room Air 04/17/22 10:12 Room Air 04/17/22 10:04 Room Air Laboratory Results Abnormal lab results 04/17/22 04/17/22 04/17/22 Range/Units 10:20 10:20 12:40 RDW Std Deviation 46.7 H (36.4-46.3) fL Immature Gran # (Auto) 0.03 H (0.00-0.02) K/uL Chloride 108 H (98-107) mmol/L Glucose 103 H (70-99(Fasting)) mg/dl Troponin I High Sens 40.2 H 43.0 H (0-14) pg/ml Diagnostic Findings Chest X-Ray 04/17/22 10:48 XR chest 1V portable CLINICAL HISTORY: fever, shob, cough COMPARISON STUDY: Chest radiograph August 19, 2019. Chest CT May 03, 2021. FINDINGS: There is no pneumothorax. Small bilateral pleural effusions are noted with bibasilar opacities. Interstitial thickening favors pulmonary edema. Mild cardiomegaly is noted. IMPRESSION: 1. Interstitial thickening suggestive of pulmonary edema. 2. Small bilateral pleural effusions. Associated bibasilar opacities favor atelectasis however pneumonia could appear similar. Radiographic follow-up is recommended. ACT 112: Negative or not required by law. Electronically signed by: Pablo Mcgowan M.D. 04/17/2022 11:27 AM ECG Additional Comments: Normal sinus rhythm Possible Left atrial enlargement Left axis deviation Left bundle branch block Abnormal ECG When compared with ECG of 17-APR-2022 10:16, (unconfirmed) No significant change was found Code Status & VTE Plan Code Status DNR/DNI. Supervising Physician Co-Signing Physician Notes During face to face encounter, I obtained a history of present illness and performed a physical examination. I reviewed above note and agree with it. D/W APC Sharp and patient plan of care. Patient admitted for COPD exacerbation, will treat with steroids, doxycycline and neb treatments. PG Care Time/CCT Total # of Minutes Spent Total Time Spent with Patient: Total time spent is greater than 50% in coordination of care (as documented) at patient's floor/unit and/or counseling patient: Coding Level of Care Code INT OBSERVATION CARE 70M LVL 3 Diagnoses COPD exacerbation J44.1 Elevated troponin R77.8 History of tobacco use Z87.891 Bladder neoplasm of uncertain malignant potential D41.4 Prediabetes R73.03 Dyslipidemia E78.5 Hypertension I10 Depression with anxiety F41.8
[2022-04-17] MEDS ORDERED: ASPIRIN 81 MG CHEW PO STA (12:18)
[2022-04-17] MEDS ORDERED: DOXYCYCLINE HYCLATE 100 MG in DEXTROSE 5% 100 ML IV STA (12:37)
[2022-04-17] MEDS ORDERED: FUROSEMIDE INJ 20 MG/2 ML VIAL IV ONE (14:03)
[2022-04-17] MEDS ORDERED: PNEUMOCOCCAL POLYSACCHARIDES 25 MCG/0.5 ML VIAL/SYR IM ONE (14:42)
[2022-04-17] MEDS ORDERED: INFLUENZA VACCINE HIGH DOSE PF 65+ 0.7 ML SYR IM ONE (14:42)
[2022-04-17] MEDS ORDERED: ALBUT/IPRATROP 3MG/0.5MG NEB 3 ML VIAL NEB PRN (15:09)
[2022-04-17] MEDS ORDERED: ACETAMINOPHEN 325 MG TAB PO PRN (15:09)
[2022-04-17] MEDS ORDERED: NITROGLYCERIN SL 0.4 MG/TAB TAB SL PRN (15:09)
[2022-04-17] MEDS ORDERED: POLYETHYLENE (MIRALAX) 17 GM PACK PO PRN (15:09)
[2022-04-17] MEDS ORDERED: ALBUTEROL HFA 8 GM INHALER INH PRN (15:09)
[2022-04-17] MEDS ORDERED: ALUMINUM/MAGNESIUM SUSP 30 ML UDC PO PRN (15:09)
[2022-04-17] MEDS ORDERED: valACYclovir HCL 500 MG TABLET PO PRN (15:09)
[2022-04-17] MEDS: ALBUT/IPRATROP 3MG/0.5MG NEB 3 ML VIAL INH SCH ×2 (15:58→20:10)
[2022-04-17 17:00] LABS: Appearance Urine Clear (Clear); Bilirubin Urine Negative (Negative); Blood Urine Negative (Negative); Color Urine Yellow; Glucose Urine UA Negative (Negative); Ketones Urine Negative (Negative); Leukocyte Esterase Urine Negative (Negative); Nitrite Urine Negative (Negative); Protein Urine Negative (Negative); Specific Gravity Urine 1.006 (1.000-1.030); Urobilinogen Urine Negative (Negative); pH Urine 6.5 (4.5-7.5)
[2022-04-17] MEDS: methylPREDNISolone 40 MG in SYRINGE 0 ML IV SCH (17:22)
--- NOTE | 2022-04-17 18:00 | Cardiology Consultation ---
Date of Consultation April 17, 2022 Assessment & Plan (1) Cardiomyopathy: (2) Elevated troponin: (3) Chest pain: (4) Mitral regurgitation: (5) Dyslipidemia: (6) Hypertension: (7) Tobacco dependence: (8) Pericardial effusion: Plan ASSESSMENT/PLAN: 1. Cardiomyopathy: Moderately to severely reduced LV systolic function. Etiology uncertain. Cannot exclude ischemic heart disease. Recommend cardiac catheterization at some point however not emergent and she has presented with respiratory issues which improved with COPD management. Continue metoprolol succinate and can titrate upward. Continue FRANCISCO-inhibitor and can titrate upward. She does not appear to be significantly hypervolemic. If LV systolic function does not significantly improve, may qualify for ICD for primary prevention after medications optimized. Risks and benefits of cardiac catheterization discussed with her in detail. She was made aware that CT surgery is not available at this facility. 2. Elevated troponin: Only minimally elevated and flat trend. Likely due to demand ischemia after presenting with probable COPD exacerbation. 3. Chest pain: She has longstanding chronic and rather stable chest pain, which occurs intermittently. Based on her description, unlikely that her chest dis comfort is related to ischemic heart disease but would pursue cardiac catheterization given cardiomyopathy as noted above. 4. Mitral regurgitation: Chronic. Eccentric and likely moderate. Continue to monitor and could further evaluate with transesophageal echo in the future if felt that mitral regurgitation is more significant. 5. Dyslipidemia: Continue statin therapy. LDL has been well controlled. 6. Hypertension: Most recent blood pressure improved but otherwise has been mostly hypertensive. Once improved from a pulmonary standpoint, would recommend further titration of metoprolol succinate and lisinopril for her cardiac issues as above. 7. Tobacco abuse: Recommended that she stop smoking. 8. COPD exacerbation: Symptoms significantly improved with treatment. Defer to primary hospitalist service. Has been seen in the outpatient setting by pulmonology in the past. COPD most recently described as moderate on PFT's in March of 2021. 9. Pericardial effusion: she clinically is not in tamponade. Pericardial effusion noted on September 2019 echo. Can monitor over time. 10. Disposition: Cardiology will continue to follow. Please call with questions or concerns. Patient care communicated with Damaris Sharp of the primary hospitalist service. Highly complex medical issues for which cardiac catheterization was considered and recommended as noted above. Thank you for allowing me to participate in the care of your patient. Please call for any other questions or concerns. Sincerely, Jose Maria Perla M.D. History of Present Illness Reason for Consultation: elevated trop, history of abnormal stress test Requesting Physician: Kavon Pope Attending Physician: Kavon Pope History of Present Illness Ms. Jennings is a very pleasant 66-year-old female with a history significant for dyslipidemia, hypertension, pre diabetes, tobacco abuse, COPD, IgM and IgG deficiency, LBBB, and bladder cancer s/p resection (no chemo or XRT). She has a history of intracranial aneurysm, which first presented as hemorrhage and then underwent coil embolization of a second aneurysm. She has previously been followed by Ely Freeman in the cardiology office. She has had the following studies/procedures: 1. Nuclear stress 07/29/19: Abnormal suggesting anteroseptal infarct and base to distal inferolateral infarct. Some degree of forrest-infarct ischemia involving the inferolateral wall could not be excluded. There was moderately reduced LV systolic function with an EF 39% and global hypokinesis. 2. Echocardiogram 10/01/19: Reported Low normal LV systolic function with an EF of 50%. No regional wall motion abnormalities. Mild to moderate MR. Compared to a prior echo on 08/28/09, no significant change. 3. Event monitor 10/08/19-11/06/19: Sinus rhythm with sinus bradycardia. No arrhythmia. 4. PFT's 04/05/2021: Moderate obstruction with significant post bronchodilator response. Moderately reduced DLCO. She was admitted on 04/17/2022 with shortness of breath. over the past 5 days, she has been experiencing fevers/chills, cough, shortness of breath, and myalgias. She has not had any ill contacts. She presented to the hospital today with shortness of breath. She has had shortness of breath at rest, including orthopnea. She has followed with pulmonology for COPD and admits that she has been prescribed inhalers but never uses them. Upon presentation, she has been treated with nebulizer treatment, dexamethasone, and then Solu-Medrol and duo nebs. She also received a dose of IV Lasix, 20 mg. When she was seen this afternoon, she states that she feels much better after using the inhalers and nebulizer treatments. She has had chronic chest pain symptoms for years. Chest pain is a substernal discomfort described as a heaviness. Her last episode was last week when it lasted for hours. There is no specific trigger. Chest pain resolve spontaneously. There is no associated shortness of breath and she denies radiation of the pain. This is the same pain that she has been experiencing intermittently for years however this last episode persisted for a longer duration. She underwent myocardial perfusion study in the past without significant ischemia reported. She has also undergone multiple echocardiograms. She has occasional palpitations, described as a flutter sensation that are not bothersome to her. They can last for a few minutes before spontaneously resolving. There is no specific trigger. This is also a chronic issue and the palpitations have not been bothersome to her. She has had an event monitor in the past. She denies melena, hematochezia, or hematuria. She denies syncope, near- syncope. She noted some minor swelling in her right foot last night. Review of systems: As above. Review of systems otherwise negative/unremarkable. Family history: No known premature CAD. Social history: She started smoking in her 20s and smokes approximately 1/3 of a pack of cigarettes per day and has smoked up to 1 pack per day. She consumes 2 shots of [employer] Janett cream 3 or 4 days per week. She denies drug abuse. She lives alone. Her in December of 2021 after 52 years of marriage. She has 1 daughter, 3 grandchildren, and 4 great-grandchildren. She was unaccompanied in her hospital room. Allergies Allergy/AdvReac Type Severity Reaction Status Date / Time No Known Drug Allergies Allergy Verified 11/22/21 13:25 Home Medications Medication Instructions Recorded Confirmed Type albuterol sulfate 90 mcg/actuation 1 puff inhalation Q4H PRN sob #8.5 04/05/21 1 Rx aerosol inhaler (Ventolin HFA) grams fluticasone fur. 100 mcg-umeclid 1 inh inhalation QAM #3 Inhalers 04/05/21 04/17/22 Rx 62.5 mcg-vilant 25 mcg inhalat.powder (Trelegy Ellipta) metoprolol succinate 25 mg 25 mg PO QAM #90 tabs 09/25/21 04/17/22 Rx tablet,extended release 24 hr metformin 1,000 mg tablet 1,000 mg PO QAM #90 tabs 11/05/21 04/17/22 Rx simvastatin 20 mg tablet 20 mg PO QAM #90 tabs 11/16/21 04/17/22 Rx lisinopril 5 mg tablet 5 mg PO QAM 11/22/21 04/17/22 History valacyclovir 1 gram tablet 2,000 mg PO BID PRN Cold Sores #30 11/22/21 04/17/22 Rx tabs venlafaxine 150 mg 150 mg PO DAILY #30 caps 11/22/21 04/17/22 Rx capsule,extended release 24 hr clonidine HCl 0.1 mg tablet 0.1 mg PO BID #180 tabs 02/15/22 04/17/22 Rx Patient History Medical History (Updated 04/17/22 @ 22:25 by Juan M Perla MD) Arthritis Bladder cancer Dx'ed Apr 2019 Borderline glaucoma Follows with eye doctor routinely- no current issues/ stable Cardiomyopathy Cervical spondylosis side to side ROM limitations COPD (chronic obstructive pulmonary disease) stable Depression with anxiety Dyslipidemia History of cold sores Valtrex PRN (no recent issues) History of intracranial aneurysm initial cerebral aneurysm "self clotted" without needing intervention, 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 no medications currently. No treatments needed at this time IgM deficiency follows with PCP LBBB (left bundle branch block) [facility] Prediabetes on metformin, last AIC 5.7% on 04/13/19 Sensorineural hearing loss of both ears Surgical History H/O breast biopsy RIGHT/LEFT History of biopsy of bladder History of cataract surgery R AND L History of cerebral aneurysm repair Endovascular repair PICA aneurysm (2005) History of colonoscopy History of cystoscopy History of elbow surgery RT History of partial hysterectomy History of surgery BONE SPUR REMOVED FROM COCCYX History of tooth extraction S/P tubal ligation Family History Grandmother (Paternal) Family history of diabetes mellitus Mother Diabetes Hypertension Stroke Brother Family history of diabetes mellitus Father Prostate cancer Melanoma Aortic aneurysm Hypertension Grandfather (Paternal) Lung cancer Denies family history of Ovarian cancer Breast cancer Colorectal cancer Social History Smoking Status: Current every day smoker Tobacco Type: Cigarettes Age Quit Using Tobacco: 65; Cigarettes Per Day: 20; Second Hand Exposure: No; Hx Alcohol Use: No Hx Substance Use: No Preferred Language: Belarusian Communication Ability: Effective Visual Impairment: No Limitations Hearing Ability: Normal Pipe Liner Required: No Beliefs That Will Affect Care: None marital status: Current Living Situation: Alone current occupational status: retired Feels Safe at Home: Yes Childhood Exposure to Second-Hand Smoke: Yes Diet Comment: regular caffeine: Yes during the past year weight has: remained stable Dental Care, Regularly: Yes Physical Activity Frequency: 1-2 Times per Week Seatbelt Use: always Sunscreen Use: Yes Assistive Devices: None Physical Exam Physical Exam: Gen.: No acute distress. Alert and oriented. HEENT: Anicteric sclera. Neck: Mild JVD. No bruits. Normal carotid upstrokes bilaterally. Cardiac: PMI was non palpable. No ventricular heave. Regular rate and rhythm. Normal S1-S2. 1/6 systolic murmur. No rubs or gallops. Pulmonary: Decreased breath sounds throughout, but otherwise clear to auscultation bilaterally without wheezes, rales, or rhonchi. Abdomen: Soft, nontender, nondistended, with normoactive bowel sounds. No bruits noted. Extremities: 2+ radial pulses bilaterally. 2+ posterior tibialis pulses bilaterally. Trace bilateral lower extremity edema, right > left. No cyanosis. Psychiatric: Affect appears appropriate. Results & Data ([facility]) Vital Signs (Past 12 Hours) Vital Signs Temp Pulse Pulse Resp BP BP Pulse Ox 04/17/22 16:21 36.6 C 87 18 142/80 H 94 04/17/22 16:10 98 H 04/17/22 16:02 04/17/22 15:09 04/17/22 16:00 95 H 18 95 04/17/22 14:33 36.4 C L 100 H 22 156/99 H 94 04/17/22 12:00 85 18 146/106 H 99 04/17/22 11:52 86 16 98 04/17/22 10:48 88 28 H 145/102 H 92 04/17/22 10:30 92 04/17/22 10:12 93 10/26/22 10:04 36.6 C 95 H 14 161/107 H 95 Pulse Ox O2 Del Method O2 Del Method O2 Flow Rate O2 Flow Rate 04/17/22 16:21 3 04/17/22 16:10 04/17/22 16:02 Nasal Cannula 3 04/17/22 15:09 94 Nasal Cannula 3 04/17/22 16:00 Nasal Cannula 3 04/17/22 14:33 Nasal Cannula 3 04/17/22 12:00 Room Air 04/17/22 11:52 Room Air 04/17/22 10:48 Room Air 04/17/22 10:30 Room Air 04/17/22 10:12 Room Air 04/17/22 10:04 Room Air Laboratory Results Laboratory Results - last 24 hr 04/17/22 04/17/22 04/17/22 10:20 10:20 10:20 WBC 8.95 RBC 4.08 Hgb 13.5 Hct 40.5 MCV 99.3 MCH 33.1 MCHC 33.3 RDW Std Deviation 46.7 H RDW Coeff of Trav 12.8 Plt Count 357 MPV 10.7 Immature Gran % (Auto) 0.3 Neut % (Auto) 71.2 Lymph % (Auto) 22.6 [place] % (Auto) 5.6 Eos % (Auto) 0.0 Baso % (Auto) 0.3 Neut # (Auto) 6.37 Lymph # (Auto) 2.02 [place] # (Auto) 0.50 Eos # (Auto) 0.00 Baso # (Auto) 0.03 Immature Gran # (Auto) 0.03 H Sodium 143 Potassium 3.8 Chloride 108 H Carbon Dioxide 26 Anion Gap 9 BUN 20 Creatinine 1.05 Est Cr Clr Drug Dosing 52.8 Est GFR ( Amer) 63.2 Est GFR (Non-Af Amer) 54.5 BUN/Creatinine Ratio 19.0 Glucose 103 H Lactate Calcium 9.5 Magnesium 2.1 Troponin I High Sens 40.2 H Procalcitonin < 0.05 Urine Color Urine Appearance Urine pH Ur Specific Trevor Urine Protein Urine Glucose (UA) Urine Ketones Urine Blood Urine Nitrite Urine Bilirubin Urine Urobilinogen Ur Leukocyte Esterase Adenovirus (PCR) B. pertussis DNA (PCR) B.parapertussis DNA PCR C. pneumoniae DNA (PCR) Coronavirus OC43 (PCR) Coronavirus HKU1 (PCR) Coronavirus 229E (PCR) SARS-CoV-2 (PCR) Coronavirus NL63 (PCR) Human Metapneumovir PCR Influenza Type A (PCR) Influenza Type B (PCR) M. pneumoniae (PCR) Parainfluenza 1 (PCR) Parainfluenza 2 (PCR) Parainfluenza 3 (PCR) Parainfluenza 4 (PCR) RSV (RT-PCR) RSV (PCR) Entero/Rhino (PCR) 04/17/22 04/17/22 04/17/22 11:22 11:22 11:38 WBC RBC Hgb Hct MCV MCH MCHC RDW Std Deviation RDW Coeff of Trav Plt Count MPV Immature Gran % (Auto) Neut % (Auto) Lymph % (Auto) [place] % (Auto) Eos % (Auto) Baso % (Auto) Neut # (Auto) Lymph # (Auto) [place] # (Auto) Eos # (Auto) Baso # (Auto) Immature Gran # (Auto) Sodium Potassium Chloride Carbon Dioxide Anion Gap BUN Creatinine Est Cr Clr Drug Dosing Est GFR ( Amer) Est GFR (Non-Af Amer) BUN/Creatinine Ratio Glucose Lactate 1.2 Calcium Magnesium Troponin I High Sens Procalcitonin Urine Color Urine Appearance Urine pH Ur Specific Trevor Urine Protein Urine Glucose (UA) Urine Ketones Urine Blood Urine Nitrite Urine Bilirubin Urine Urobilinogen Ur Leukocyte Esterase Adenovirus (PCR) Pending B. pertussis DNA (PCR) Pending B.parapertussis DNA PCR Pending C. pneumoniae DNA (PCR) Pending Coronavirus OC43 (PCR) Pending Coronavirus HKU1 (PCR) Pending Coronavirus 229E (PCR) Pending SARS-CoV-2 (PCR) NEGATIVE Pending Coronavirus NL63 (PCR) Pending Human Metapneumovir PCR Pending Influenza Type A (PCR) Negative Influenza Type B (PCR) Negative Pending M. pneumoniae (PCR) Pending Parainfluenza 1 (PCR) Pending Parainfluenza 2 (PCR) Pending Parainfluenza 3 (PCR) Pending Parainfluenza 4 (PCR) Pending RSV (RT-PCR) Negative RSV (PCR) Pending Entero/Rhino (PCR) Pending 04/17/22 04/17/22 12:40 16:47 WBC RBC Hgb Hct MCV MCH MCHC RDW Std Deviation RDW Coeff of Trav Plt Count MPV Immature Gran % (Auto) Neut % (Auto) Lymph % (Auto) [place] % (Auto) Eos % (Auto) Baso % (Auto) Neut # (Auto) Lymph # (Auto) [place] # (Auto) Eos # (Auto) Baso # (Auto) Immature Gran # (Auto) Sodium Potassium Chloride Carbon Dioxide Anion Gap BUN Creatinine Est Cr Clr Drug Dosing Est GFR ( Amer) Est GFR (Non-Af Amer) BUN/Creatinine Ratio Glucose Lactate Calcium Magnesium Troponin I High Sens 43.0 H Procalcitonin Urine Color Yellow Urine Appearance Clear Urine pH 6.5 Ur Specific Trevor 1.006 Urine Protein Negative Urine Glucose (UA) Negative Urine Ketones Negative Urine Blood Negative Urine Nitrite Negative Urine Bilirubin Negative Urine Urobilinogen Negative Ur Leukocyte Esterase Negative Adenovirus (PCR) B. pertussis DNA (PCR) B.parapertussis DNA PCR C. pneumoniae DNA (PCR) Coronavirus OC43 (PCR) Coronavirus HKU1 (PCR) Coronavirus 229E (PCR) SARS-CoV-2 (PCR) Coronavirus NL63 (PCR) Human Metapneumovir PCR Influenza Type A (PCR) Influenza Type B (PCR) M. pneumoniae (PCR) Parainfluenza 1 (PCR) Parainfluenza 2 (PCR) Parainfluenza 3 (PCR) Parainfluenza 4 (PCR) RSV (RT-PCR) RSV (PCR) Entero/Rhino (PCR) Diagnostic Findings Telemetry personally reviewed: Sinus rhythm. No arrhythmia. ECG personally reviewed: ECG 04/17/2022 at 1016: Sinus tachycardia 101 bpm. LBBB. ECG 04/17/2022 at 12:05 PM: Sinus rhythm 85 bpm. LBBB. Chest x-ray 04/17/2022: No obvious infiltrate on personal review. Right pleural effusion. Echo 04/17/2022: Mildly dilated LV. EF 30-35%. Global hypokinesis. Moderate left atrial dilation. Moderate posteriorly directed MR. Very small pericardial effusion without echocardiographic evidence of tamponade physiology. RVSP 36. Medications Administered Current Inpatient Medications Acetaminophen (Acetaminophen 325 Mg Tab) 650 mg PO Q4H PRN PRN Reason: Pain or Fever Stop: 05/17/22 15:08 Al Hydrox/Mg Hydrox/Simethicone (Aluminum/Magnesium Susp 30 Ml Udc) 15 ml PO Q4H PRN PRN Reason: Dyspepsia Stop: 05/17/22 15:08 Albuterol (Albuterol Hfa 8 Gm Inhaler) 1 - 2 puffs INH Q4H PRN PRN Reason: sob Stop: 05/17/22 15:08 Albuterol (Albut/Ipratrop 3mg/0.5mg Neb 3 Ml Vial) 3 ml NEB Q2H PRN PRN Reason: Shortness of Breath/Wheezing Stop: 05/17/22 15:08 Albuterol (Albut/Ipratrop 3mg/0.5mg Neb 3 Ml Vial) 3 ml INH Q6R KELLIE Stop: 05/17/22 15:08 Last Admin: 04/17/22 15:58 Dose: 3 ml Clonidine HCl (Clonidine Hcl 0.1 Mg Tab) 0.1 mg PO BID KELLIE Stop: 05/17/22 20:59 Fluticasone Furoate (Fluticasone Furoate 100mcg 14 Puffs/Inhaler) 1 puffs INH DAILY KELLIE Stop: 05/18/22 08:59 Guaifenesin (Guaifenesin 600 Mg Tabcr) 1,200 mg PO BID KELLIE Stop: 05/17/22 20:59 Doxycycline Hyclate 100 mg/ (Dextrose) 110 mls @ 50 mls/hr IV Q12H KELLIE Stop: 04/22/22 02:11 Methylprednisolone 40 mg/ (Syringe) 0.64 mls @ 1.5 mls/min IV Q8H KELLIE Stop: 05/17/22 17:59 Last Admin: 04/17/22 17:22 Dose: 1.5 mls/min Lisinopril (Lisinopril 5 Mg Tab) 5 mg PO QAM KELLIE Stop: 05/18/22 08:59 Metoprolol Succinate (Metoprolol Succ 25mg Ext Rel Tab) 25 mg PO QAM KELLIE Stop: 05/18/22 08:59 Nitroglycerin (Nitroglycerin Sl 0.4 Mg/Tab Tab) 0.4 mg SL PRN PRN PRN Reason: Chest Pain Stop: 05/17/22 15:08 Polyethylene Glycol (Polyethylene (Miralax) 17 Gm Pack) 17 gm PO DAILY PRN PRN Reason: Constipation Stop: 11/25/22 15:08 Simvastatin (Simvastatin 20 Mg Tab) 20 mg PO QAM KELLIE Stop: 05/18/22 08:59 Umeclidinium/Vilanterol (Umeclidinium/Vilanterol 62.5/25mcg 7 Puffs/Inhaler) 1 puffs INH DAILY KELLIE Stop: 05/18/22 08:59 Valacyclovir HCl (Valacyclovir Hcl 500 Mg Tablet) 2,000 mg PO BID PRN PRN Reason: Cold Sores Stop: 04/27/22 15:08 Venlafaxine HCl (Venlafaxine Hcl Xr 150 Mg Capxr) 150 mg PO DAILY KELLIE Stop: 05/18/22 08:59 PG Care Time/CCT Total # of Minutes Spent Total Time Spent with Patient: Total time spent is greater than 50% in coordination of care (as documented) at patient's floor/unit and/or counseling patient: Coding Level of Care Code 78855 Initial Inpt Care Lvl 3 Diagnoses Cardiomyopathy I42.9 Elevated troponin R77.8 Chest pain R07.9 Mitral regurgitation I34.0 Dyslipidemia E78.5 Hypertension I10 Tobacco dependence F17.200 Pericardial effusion I31.39
[2022-04-17 18:14] LABS: Adenovirus PCR Not Detected (NotDetected); Bordetella parapertussis PCR Not Detected (NotDetected); Bordetella pertussis PCR Not Detected (NotDetected); Chlamydia pneumoniae PCR Not Detected (NotDetected); Coronavirus 229E PCR Not Detected (NotDetected); Coronavirus CoV-2 (COVID19)PCR Not Detected (NotDetected); Coronavirus HKU1 PCR Not Detected (NotDetected); Coronavirus NL63 PCR Not Detected (NotDetected); Coronavirus OC43PCR Not Detected (NotDetected); Human Metapneumovirus PCR Not Detected (NotDetected); Influenza A PCR Not Detected (NotDetected); Influenza B PCR Not Detected (NotDetected); Mycoplasma pneumoniae PCR Not Detected (NotDetected); Parainfluenza Virus 1 PCR Not Detected (NotDetected); Parainfluenza Virus 2 PCR Not Detected (NotDetected); Parainfluenza Virus 3 PCR Not Detected (NotDetected); Parainfluenza Virus 4 PCR Not Detected (NotDetected); Respiratory Syncytial VirusPCR Not Detected (NotDetected); Rhinovirus/Enterovirus PCR Not Detected (NotDetected)
--- NOTE | 2022-04-17 18:53 | XCELERA ---
[id number]
[2022-04-17] MEDS: guaiFENesin 600 MG TABCR PO SCH (20:14)
[2022-04-17] MEDS: cloNIDine HCL 0.1 MG TAB PO SCH (20:14)
[2022-04-18] MEDS: ALBUT/IPRATROP 3MG/0.5MG NEB 3 ML VIAL INH SCH ×2 (00:39→07:08)
[2022-04-18] MEDS: DOXYCYCLINE HYCLATE 100 MG in DEXTROSE 5% 100 ML IV SCH ×3 (00:53→22:47)
[2022-04-18] MEDS: methylPREDNISolone 40 MG in SYRINGE 0 ML IV SCH (00:53)
[2022-04-18 03:45] LABS: Hemoglobin 12.2 g/dl (12.0-16.0); Mean Corpuscular Hemoglobin 33.4 pg (25.0-34.0); Mean Corpuscular Hgb Conc 33.9 g/dL (32.0-36.0); Mean Corpuscular Volume 98.6 fL (80.0-100.0); Mean Platelet Volume 10.3 fL (9.4-12.3); Platelet Count 318 K/uL (130-400); RDW Coefficient of Variation 12.6 % (11.5-14.5); RDW Standard Deviation 45.8 fL (36.4-46.3); Red Blood Count 3.65 M/uL (3.93-5.22); White Blood Count 7.81 K/ul (4.8-10.8)
[2022-04-18 04:03] LABS: Basophils # (auto) 0.01 K/uL (0-0.2); Basophils % (auto) 0.1 %; Creatinine Clr Calc Pharmacy 50.4 ml/min; Est GFR (African American) 59.7 ml/min; Est GFR (Non-African American) 51.5 ml/min; Immature Granulocytes # (auto) 0.05 K/uL (0.00-0.02); Immature Granulocytes % (auto) 0.6 %; Lymphocytes # (auto) 0.43 K/uL (1.2-3.4); Lymphocytes % (auto) 5.5 %; Monocytes # (auto) 0.18 K/uL (0.24-0.82); Monocytes % (auto) 2.3 %; Neutrophils # (auto) 7.14 K/uL (1.4-6.5); Neutrophils % (auto) 91.5 %; Potassium 3.9 mmol/L (3.5-5.1)
--- NOTE | 2022-04-18 05:48 | Electrocardiogram Report ---
Test Reason : Blood Pressure : / mmHG Vent. Rate : 101 BPM Atrial Rate : 101 BPM P-R Int : 128 ms QRS Dur : 138 ms QT Int : 406 ms P-R-T Axes : 055 -41 087 degrees QTc Int : 526 ms Poor data quality, interpretation may be adversely affected Sinus tachycardia Possible Left atrial enlargement Left axis deviation Left bundle branch block Abnormal ECG When compared with ECG of 18-MAY-2019 08:17, No significant change Confirmed by Juan M Perla ([id number]) on 04/18/2022 5:48:13 AM Referred By: REFERRED SELF Confirmed By:Juan M Perla
--- NOTE | 2022-04-18 05:59 | Electrocardiogram Report ---
Test Reason : Blood Pressure : / mmHG Vent. Rate : 085 BPM Atrial Rate : 085 BPM P-R Int : 130 ms QRS Dur : 144 ms QT Int : 440 ms P-R-T Axes : 038 -45 094 degrees QTc Int : 523 ms Normal sinus rhythm Possible Left atrial enlargement Left axis deviation Left bundle branch block Abnormal ECG When compared with ECG of 17-APR-2022 10:16, No significant change was found Confirmed by Juan M Perla ([id number] on 04/18/2022 5:58:47 AM Referred By: REFERRED SELF Confirmed By:Juan M Perla
--- NOTE | 2022-04-18 08:02 | Hospitalist Progress Note ---
Date of Service April 18, 2022 Assessment & Plan (1) Heart failure: Plan: -Patient described 1 week worsening SOB laying down, admit on 3L O2 -symptoms improved with lasix 20mg IV in ED -Echo: EF 30-35%, mod to sev reduced LV function, global hypokinesis, see chart for read -CXR: Interstitial thickening suggestive of pulmonary edema. Small bilateral pleural effusions. Associated bibasilar opacities favor atelectasis however pneumonia could appear similar. Radiographic follow-up is recommended. -will try lasix 40mg IV daily until SOB resolves -cardiology consulted recommend cardiac cath today (2) Elevated troponin: Plan: - Max elevated to 43 now downtrending - EKG: Normal sinus rhythm Possible Left atrial enlargement Left axis deviation Left bundle branch block Abnormal ECG When compared with ECG of 17-APR-2022 10:16, (unconfirmed) No significant change was found - LBBB is not a new finding, previously seen on EKG from 2019. - she previously followed with cardiology, last seen in 2019 for LBBB and atypical chest discomfort, at that point was only occurring at rest. * Nuclear stress test August 2019: Abnormal, suggesting anteroseptal infarction based lateral infarct, moderately reduced LV SF, EF 39% with global hypokinesis. * Echo September 2019: Lownormal LV systolic function with no regional wall motion abnormalities. Mild-moderate MR. - Consulted cardiology. (3) COPD exacerbation: Plan: - Patient has 5 days of flulike symptoms including fever/chills, cough, congestion, shortness of breath, body aches. - History of COPD, has rescue inhaler as needed and Trelegy which she also uses as needed (not used for several months), however has been taking daily this week with minimal alleviation. - CXR shows interstitial thickening stress of pulmonary edema, bibasilar atelectasis, no obvious pneumonia. - Labs are largely unrevealing, neg leukocytosis lactate procal - In the ED, received nebulizer treatment and 10 mg IV dexamethasone, felt slightly better, was diagnosed with COPD exacerbation - Was started on Solu-Medrol 40 mg every 8 hours, DuoNebs scheduled and as needed, continue home inhalers, doxycycline twice daily (QTC of 523). At this time symptoms likely due to CHF, however given she was already treated with above, difficult to parse will complete 3 days doxycycline, transition solumedrol to prednisone and continue until symptoms resolve - COVID/flu/RSV negative, bio fire respiratory panel negative. - Mucinex, Tylenol for supportive care. (4) History of tobacco use: Plan: - Currently smoking 1/3 pack/day and declines nicotine patch while admitted. - Patient educated on tobacco cessation to avoid further COPD exacerbations and hospitalizations. 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 We will continue to follow-up annually. (6) Prediabetes: Plan: - Hold metformin. A1c in October was 5.9%. here 5.5 (7) Dyslipidemia: Plan: - Continue simvastatin. (8) Hypertension: Plan: - Continue clonidine 0.1 mg twice daily, metoprolol 25 mg in a.m., lisinopril 5 mg in AM. (9) Depression with anxiety: Plan: - Continue venlafaxine. Plan - Admit to med/telemetry. - SCDs for DVT PPx. - DNR/DNI. Admission and Anticipated Discharge Date Admission Date: April 17, 2022 Supervising Physician Co-Signing Physician Notes I personally examined the patient and verified all hughes points of history and exam, discussed case, and agree with decision making with Dr La. Breathing feeling better than before, but still not back to normal. Extensive discussionsupdated on cath findings and working diagnosis and plan. Family present, answered all questions to the best my ability and to their satisfaction Vitals noted, in general she is awake and alert pleasant no distress. HEENT normocephalic atraumatic mucous membranes moist. Breathing unlabored no accessory muscle use good effort. Skin shows no rashes no pallor or icterus. Neuro without focal deficits. Lungs with bibasilar rales Acute on probably chronic HFrEFdiuresis, afterload reduction, SGLT2. Otherwise as above Subjective 66F seen at bedside, calm comfortable cooperative. Patient states over the last week she has experienced worsening SOB while laying down with some chest heaviness, also had chills subjective fever without measuring temperature cough with phlegm that went from clear to green. Described swelling of her right leg. Some nausea but no vomitting. Also had some rapid breathing without wheezing. She states she has COPD but has never needed inhalers in the past, she feels slightly better today after inhaler treatment and oxygen but still feels worse laying down. Patient states she has been told of leaky valves in the past but had assumed they would resolve on their own. Review of Systems Review of Systems: Positive SOB laying down Negative fever chills Negative headache dizziness Negative chest pain palpitations Negative nausea vomitting diarrhea constipation Negative numbness tingling rash swelling Physical Exam Constitutional: WD/WN, vitals as above Eyes: PERRL, conjunctivae normal, anicteric sclerae ENMT: external ear and nose normal, oropharynx normal Neck: trachea midline, no thyromegaly Respiratory: normal respiratory effort Auscultation: + crackles (trace at b/l base of lung) Cardiovascular: RRR, no murmur, no edema Gastrointestinal (Abdomen): normal bowel sounds, soft, nontender, no hepatosplenomegaly Skin: no rashes, warm and dry Results & Data Results & Data ([facility]) Vital Signs (Past 12 Hours) Vital Signs Temp Pulse Pulse Resp BP BP Pulse Ox 04/18/22 08:01 36.7 C 95 H 19 130/76 92 04/18/22 07:17 04/18/22 07:12 92 H 04/18/22 07:08 90 16 95 04/18/22 03:27 04/18/22 01:06 87 04/18/22 00:39 82 18 93 04/17/22 22:53 36.6 C 87 18 110/65 91 04/17/22 20:10 95 H 24 91 O2 Del Method O2 Flow Rate 04/18/22 08:01 Nasal Cannula 3 04/18/22 07:17 Nasal Cannula 2 04/18/22 07:12 04/18/22 07:08 Nasal Cannula 3 04/18/22 03:27 Nasal Cannula 2 04/18/22 01:06 04/18/22 00:39 Nasal Cannula 3 04/17/22 22:53 Nasal Cannula 3 04/17/22 20:10 Nasal Cannula 3 Diagnostic Findings Laboratory Results WBC 7.81 K/ul (4.8-10.8) 04/18/22 03:19 RBC 3.65 M/uL (3.93-5.22) L 04/18/22 03:19 Hgb 12.2 g/dl (12.0-16.0) 04/18/22 03:19 Hct 36.0 % (34.1-44.9) 04/18/22 03:19 MCV 98.6 fL (80.0-100.0) 04/18/22 03:19 MCH 33.4 pg (25.0-34.0) 04/18/22 03:19 MCHC 33.9 g/dL (32.0-36.0) 04/18/22 03:19 RDW Std Deviation 45.8 fL (36.4-46.3) 04/18/22 03:19 RDW Coeff of Trav 12.6 % (11.5-14.5) 04/18/22 03:19 Plt Count 318 K/uL (130-400) 04/18/22 03:19 MPV 10.3 fL (9.4-12.3) 04/18/22 03:19 Immature Gran % (Auto) 0.6 % 04/18/22 03:19 Neut % (Auto) 91.5 % 04/18/22 03:19 Lymph % (Auto) 5.5 % 04/18/22 03:19 Z[place]ata % (Auto) 2.3 % 04/18/22 03:19 Eos % (Auto) 0.0 % 04/18/22 03:19 Baso % (Auto) 0.1 % 04/18/22 03:19 Neut # (Auto) 7.14 K/uL (1.4-6.5) H 04/18/22 03:19 Lymph # (Auto) 0.43 K/uL (1.2-3.4) L 04/18/22 03:19 Zapata # (Auto) 0.18 K/uL (0.24-0.82) L 04/18/22 03:19 Eos # (Auto) 0.00 K/uL (0-0.50) 04/18/22 03:19 Baso # (Auto) 0.01 K/uL (0-0.2) 04/18/22 03:19 Immature Gran # (Auto) 0.05 K/uL (0.00-0.02) H 04/18/22 03:19 Sodium 139 mmol/L (136-145) 04/18/22 03:19 Potassium 3.9 mmol/L (3.5-5.1) 04/18/22 03:19 Chloride 105 mmol/L (98-107) 04/18/22 03:19 Carbon Dioxide 24 mmol/L (21-32) 04/18/22 03:19 Anion Gap 10 (3-11) 04/18/22 03:19 BUN 22 mg/dl (6-23) 04/18/22 03:19 Creatinine 1.10 mg/dl (0.6-1.2) 04/18/22 03:19 Est Cr Clr Drug Dosing 50.4 ml/min 04/18/22 03:19 Est GFR ( Amer) 59.7 ml/min 04/18/22 03:19 Est GFR (Non-Af Amer) 51.5 ml/min 04/18/22 03:19 BUN/Creatinine Ratio 20.0 (10-20) 04/18/22 03:19 Glucose 149 mg/dl (70-99(Fasting)) H 04/18/22 03:19 Estimat Average Glucose 111 mg/dl 04/18/22 03:19 Hemoglobin A1c 5.5 % (4.5-5.6) 04/18/22 03:19 Lactate 1.2 mmol/L (0.4-2.0) 04/17/22 11:38 Calcium 9.0 mg/dl (8.5-10.1) 04/18/22 03:19 Magnesium 2.1 mg/dl (1.7-2.4) 04/17/22 10:20 Troponin I High Sens 26.0 pg/ml (0-14) H 04/18/22 08:32 B-Natriuretic Peptide 2405 pg/ml (0-100) H 04/18/22 03:18 Procalcitonin < 0.05 ng/ml (0-0.5) 04/17/22 10:20 Urine Color Yellow 04/17/22 16:47 Urine Appearance Clear (Clear) 04/17/22 16:47 Urine pH 6.5 (4.5-7.5) 04/17/22 16:47 Ur Specific Weldon 1.006 (1.000-1.030) 04/17/22 16:47 Urine Protein Negative (Negative) 04/17/22 16:47 Urine Glucose (UA) Negative (Negative) 04/17/22 16:47 Urine Ketones Negative (Negative) 04/17/22 16:47 Urine Blood Negative (Negative) 04/17/22 16:47 Urine Nitrite Negative (Negative) 04/17/22 16:47 Urine Bilirubin Negative (Negative) 04/17/22 16:47 Urine Urobilinogen Negative (Negative) 04/17/22 16:47 Ur Leukocyte Esterase Negative (Negative) 04/17/22 16:47 Adenovirus (PCR) Not Detected (NotDetected) 04/17/22 11:22 B. pertussis DNA (PCR) Not Detected (NotDetected) 04/17/22 11:22 B.parapertussis DNA PCR Not Detected (NotDetected) 04/17/22 11:22 C. pneumoniae DNA (PCR) Not Detected (NotDetected) 04/17/22 11:22 Coronavirus OC43 (PCR) Not Detected (NotDetected) 04/17/22 11:22 Coronavirus HKU1 (PCR) Not Detected (NotDetected) 04/17/22 11:22 Coronavirus 229E (PCR) Not Detected (NotDetected) 04/17/22 11:22 SARS-CoV-2 (PCR) NEGATIVE (Negative) 04/17/22 11:22 SARS-CoV-2 (PCR) Not Detected (NotDetected) 04/17/22 11:22 Coronavirus NL63 (PCR) Not Detected (NotDetected) 04/17/22 11:22 Human Metapneumovir PCR Not Detected (NotDetected) 04/17/22 11:22 Influenza Type A (PCR) Negative (Neg) 04/17/22 11:22 Influenza Type A (PCR) Not Detected (NotDetected) 04/17/22 11:22 Influenza Type B (PCR) Negative (Neg) 04/17/22 11:22 Influenza Type B (PCR) Not Detected (NotDetected) 04/17/22 11:22 M. pneumoniae (PCR) Not Detected (NotDetected) 04/17/22 11:22 Parainfluenza 1 (PCR) Not Detected (NotDetected) 04/17/22 11:22 Parainfluenza 2 (PCR) Not Detected (NotDetected) 04/17/22 11:22 Parainfluenza 3 (PCR) Not Detected (NotDetected) 04/17/22 11:22 Parainfluenza 4 (PCR) Not Detected (NotDetected) 04/17/22 11:22 RSV (RT-PCR) Negative (Neg) 04/17/22 11:22 RSV (PCR) Not Detected (NotDetected) 04/17/22 11:22 Entero/Rhino (PCR) Not Detected (NotDetected) 04/17/22 11:22 Impressions Chest X-Ray 04/17/22 10:48 XR chest 1V portable CLINICAL HISTORY: fever, shob, cough COMPARISON STUDY: Chest radiograph August 19, 2019. Chest CT May 03, 2021. FINDINGS: There is no pneumothorax. Small bilateral pleural effusions are noted with bibasilar opacities. Interstitial thickening favors pulmonary edema. Mild cardiomegaly is noted. IMPRESSION: 1. Interstitial thickening suggestive of pulmonary edema. 2. Small bilateral pleural effusions. Associated bibasilar opacities favor atelectasis however pneumonia could appear similar. Radiographic follow-up is recommended. ACT 112: Negative or not required by law. Electronically signed by: Pablo Mcgowan M.D. 04/17/2022 11:27 AM Medications Administered Current Inpatient Medications Acetaminophen (Acetaminophen 325 Mg Tab) 650 mg PO Q4H PRN PRN Reason: Pain or Fever Stop: 05/17/22 15:08 Al Hydrox/Mg Hydrox/Simethicone (Aluminum/Magnesium Susp 30 Ml Udc) 15 ml PO Q4H PRN PRN Reason: Dyspepsia Stop: 05/17/22 15:08 Albuterol (Albuterol Hfa 8 Gm Inhaler) 1 - 2 puffs INH Q4H PRN PRN Reason: sob Stop: 05/17/22 15:08 Albuterol (Albut/Ipratrop 3mg/0.5mg Neb 3 Ml Vial) 3 ml NEB Q2H PRN PRN Reason: Shortness of Breath/Wheezing Stop: 05/17/22 15:08 Albuterol (Albut/Ipratrop 3mg/0.5mg Neb 3 Ml Vial) 3 ml INH Q6R KELLIE Stop: 05/17/22 15:08 Last Admin: 04/18/22 07:08 Dose: 3 ml Clonidine HCl (Clonidine Hcl 0.1 Mg Tab) 0.1 mg PO BID KELLIE Stop: 05/17/22 20:59 Last Admin: 04/18/22 08:21 Dose: 0.1 mg Fluticasone Furoate (Fluticasone Furoate 100mcg 14 Puffs/Inhaler) 1 puffs INH DAILY [facility] [place] Stop: 05/18/22 08:59 Last Admin: 04/18/22 08:22 Dose: 1 puffs Guaifenesin (Guaifenesin 600 Mg Tabcr) 1,200 mg PO BID [facility] [place] Stop: 05/17/22 20:59 Last Admin: 04/18/22 08:21 Dose: 1,200 mg Doxycycline Hyclate 100 mg/ (Dextrose) 110 mls @ 50 mls/hr IV Q12H [facility] [place] Stop: 04/20/22 23:59 Last Infusion: 04/18/22 03:16 Dose: Infused Methylprednisolone 40 mg/ (Syringe) 0.64 mls @ 1.5 mls/min IV DAILY [facility] Stop: 05/19/22 08:59 Lisinopril (Lisinopril 5 Mg Tab) 5 mg PO QAM [facility] [place] Stop: 05/18/22 08:59 Last Admin: 04/18/22 08:22 Dose: 5 mg Metoprolol Succinate (Metoprolol Succ 25mg Ext Rel Tab) 25 mg PO QAM [facility] [place] Stop: 05/18/22 08:59 Last Admin: 04/18/22 08:21 Dose: 25 mg Nitroglycerin (Nitroglycerin Sl 0.4 Mg/Tab Tab) 0.4 mg SL PRN PRN PRN Reason: Chest Pain Stop: 05/17/22 15:08 Polyethylene Glycol (Polyethylene (Miralax) 17 Gm Pack) 17 gm PO DAILY PRN PRN Reason: Constipation Stop: 05/17/22 15:08 Simvastatin (Simvastatin 20 Mg Tab) 20 mg PO QAM [facility] [place] Stop: 05/18/22 08:59 Last Admin: 04/18/22 08:23 Dose: 20 mg Umeclidinium/Vilanterol (Umeclidinium/Vilanterol 62.5/25mcg 7 Puffs/Inhaler) 1 puffs INH DAILY [facility] Stop: 05/18/22 08:59 Last Admin: 04/18/22 08:23 Dose: 1 puffs Valacyclovir HCl (Valacyclovir Hcl 500 Mg Tablet) 2,000 mg PO BID PRN PRN Reason: Cold Sores Stop: 04/27/22 15:08 Venlafaxine HCl (Venlafaxine Hcl Xr 150 Mg Capxr) 150 mg PO DAILY KELLIE Stop: 05/18/22 08:59 Last Admin: 04/18/22 08:22 Dose: 150 mg Resident Activity Tracking Resident Involvement: Resident Care Provided Care Provided: Adult Hospital Medicine
[2022-04-18] MEDS: cloNIDine HCL 0.1 MG TAB PO SCH ×2 (08:21→20:13)
[2022-04-18] MEDS: METOPROLOL SUCC 25MG EXT REL TAB PO SCH (08:21)
[2022-04-18] MEDS: guaiFENesin 600 MG TABCR PO SCH ×2 (08:21→20:13)
[2022-04-18] MEDS: VENLAFAXINE HCL XR 150 MG CAPXR PO SCH (08:22)
[2022-04-18] MEDS: FLUTICASONE FUROATE 100MCG 14 PUFFS/INHALER INH SCH (08:22)
[2022-04-18] MEDS: UMECLIDINIUM/VILANTEROL 62.5/25MCG 7 PUFFS/INHALER INH SCH (08:23)
[2022-04-18 08:33] LABS: Estimated Average Glucose 111 mg/dl; Hemoglobin A1C 5.5 % (4.5-5.6)
[2022-04-18] MEDS ORDERED: FUROSEMIDE 40 MG/4 ML VIAL IV ONE (08:50)
[2022-04-18] MEDS ORDERED: lisinopril 5 MG TAB PO SCH (09:00)
[2022-04-18] MEDS ORDERED: SIMVASTATIN 20 MG TAB PO SCH (09:00)
[2022-04-18] MEDS ORDERED: NON-FORMULARY MEDICATION (Fluticasone-Umeclidin-Vilanter [Trelegy Ellipta] 100-62.5-25 mcg INH SCH (09:00)
[2022-04-18] MEDS ORDERED: ASPIRIN 81 MG CHEW ONE (13:26)
--- NOTE | 2022-04-18 14:02 | Pre Anesthesia Assessment ---
Date of Service April 18, 2022 Pre Sedation Assessment Vital Signs Temp Pulse Pulse Resp BP BP Pulse Ox 04/18/22 11:53 36.7 C 104 H 21 124/84 96 04/18/22 08:01 36.7 C 95 H 19 130/76 92 04/18/22 07:17 04/18/22 07:12 92 H 04/18/22 07:08 90 16 95 04/18/22 03:27 04/18/22 01:06 87 04/18/22 00:39 82 18 93 04/17/22 22:53 36.6 C 87 18 110/65 91 04/17/22 20:10 95 H 24 91 04/17/22 19:34 36.5 C 95 H 19 137/81 91 04/17/22 16:21 36.6 C 87 18 142/80 H 94 04/17/22 16:10 98 H 04/17/22 16:02 04/17/22 15:09 04/17/22 16:00 95 H 18 95 04/17/22 14:33 36.4 C L 100 H 22 156/99 H 94 Pulse Ox O2 Del Method O2 Del Method O2 Flow Rate O2 Flow Rate 04/18/22 11:53 Nasal Cannula 3 04/18/22 08:01 Nasal Cannula 3 04/18/22 07:17 Nasal Cannula 2 04/18/22 07:12 04/18/22 07:08 Nasal Cannula 3 04/18/22 03:27 Nasal Cannula 2 04/18/22 01:06 04/18/22 00:39 Nasal Cannula 3 04/17/22 22:53 Nasal Cannula 3 04/17/22 20:10 Nasal Cannula 3 04/17/22 19:34 Nasal Cannula 3 04/17/22 16:21 3 04/17/22 16:10 04/17/22 16:02 Nasal Cannula 3 04/17/22 15:09 94 Nasal Cannula 3 04/17/22 16:00 Nasal Cannula 3 04/17/22 14:33 Nasal Cannula 3 Cardiovascular + regular rhythm + murmur Respiratory normal respiratory effort, lungs clear to auscultation Pre-Sedation Airway Assessment Smoking Status: Current every day smoker Hx Sleep Apnea: No Short, Thick Neck: No Thyromental Distance: > or= 3.5 Finger Breadths Oral Cavity: + WNL Mallampati Class: III ASA: ASA3 NPO Status Date of Last Intake of Fluids: 04/18/22 Time of Last Intake of Fluids: 08:00 Date of Last Intake of Solid Food: 04/18/22 Time of Last Intake of Solid Foods: 08:00 Procedure Planning Contraindications for Sedation: none Current Medications Reviewed: Yes Notes The planned sedation has been discussed with the patient. Informed Consent was obtained. I have identified the patient, determined the appropriateness of sedation and have assessed the patient immediately prior to the procedure. All medicine(s) and interventions are by my order.
[2022-04-18] MEDS ORDERED: HEPARIN (PORCINE) 1000 UNIT/ML 10 ML (CATH LAB USE ONLY) ONE (14:04)
[2022-04-18] MEDS ORDERED: niCARdipine HCL INJ 2.5 MG/ML 10 ML AMP ONE (14:04)
[2022-04-18] MEDS ORDERED: fentaNYL citrate 100 MCG/2 ML VIAL ONE (14:04)
[2022-04-18] MEDS ORDERED: MIDAZOLAM HCL 1 MG/ML 2ML VIAL ONE (14:04)
[2022-04-18] MEDS ORDERED: NITROGLYCERIN/D5W 100MCG/ML 20ML SYR ONE (14:05)
--- NOTE | 2022-04-18 15:04 | Cardiac Catheterization ---
[facility] Data: Preschool Assistant Director Cardiac Status Clinical evaluation leading to the procedure CAD Presenation: No Sxs, No angina Anginal Classification: No Symptoms Heart Failure: NYHA Class: CCS IV Cardiogenic Shock within 24 Hours: No Cardiac Arrest within 24 Hours: No Imaging Studies Past 6 Months: Yes Stress Studies Past 6 Months: No Coronary Anatomy Dominant: Co-Dominant Diagnostic Physicians Name: Juan M Perla MD Closure Device Percutaneous Entry Location: Radial Closure Device: Radial Band Recommendations: Management Recommendatons Cardiac Cath Procedure Full Procedure Date April 18, 2022 Pre-Procedure Diagnosis Pre-Procedure Diagnosis: CHF and Cardiomyopathy AUC Score AUC Score: 7 Post-Procedure Diagnosis Post-Procedure Diagnosis: Mild CAD and Elevated Intracardiac Pressures Procedure(s) Performed Procedure(s) Performed: Coronary Angiography, Left Heart Cath and Right Heart Cath Lockstitch Zipper Setter Juan M Perla MD Commercial Trailer Truck Driver(s) Kelsey Estimated Blood Loss Estimated Blood Loss: < 25 ml Medication(s) Medication(s): Fentanyl, Heparin, Lidocaine 1%, Nicardipine and Versed Summary of Findings Procedures: 1. Coronary angiography 2. Left heart catheterization 3. Right heart catheterization 4. Moderate sedation Indication: 66-year-old female with a history significant for mitral regurgitation, prediabetes, hypertension, dyslipidemia, tobacco abuse, LBBB, and COPD who presented with shortness of breath and was found to have cardiomyopathy. Given cardiomyopathy and CHF, cardiac catheterization arranged. Coronary angiography: 1. Left main: No significant CAD. 2. Left anterior descending: LAD wraps around the apex. Mild luminal irregularities within the proximal LAD. Mid LAD 40% at bifurcation of large D1. 3. Circumflex: Codominant. Large caliber vessel. No significant CAD within the circumflex system. Very small caliber OM1 and OM 2. Large branching OM 3. Circumflex PDA and PL without significant CAD. 4. Right coronary artery: Codominant. Early mid RCA 30 to 40%. PDA and PL without significant CAD. Left heart catheterization: 1. Left ventriculography was not performed. 2. No aortic stenosis. 3. Severely elevated LVEDP; 28 mmHg. Right heart catheterization: 1. Pulmonary capillary wedge pressure: V wave 40 with a mean of 31 mmHg 2. Pulmonary artery pressure: 48/27 with a mean of 34 mmHg 3. Right ventricular pressure: 48/9 with EDP 14 mmHg 4. Right atrial pressure: A-wave 11, V wave 9, mean 7 mmHg 5. PVR 0.71 Wood units. 6. Cardiac output via thermodilution was 4.2 L/min with a cardiac index of 2.31 L/min/m. Moderate sedation: 1. Sedation start time: 2:26 PM 2. Sedation end time: 2:52 PM Access sites: 1. Right radial artery 2. Left brachiocephalic vein Impression: 1. Nonobstructive CAD 2. Nonischemic cardiomyopathy 3. Codominant system 4. No aortic stenosis 5. Severely elevated left-sided filling pressures 6. Moderate pulmonary hypertension, likely due to left heart failure +/- known COPD. Plan: 1. Continue diuresis. 2. Optimize heart failure medical therapy. 3. Heart failure program referral. 4. Risk factor modification for CAD. Hemodynamics Rest Ao:: 118/71 Final Ao: 124/76 LV: 121/01/17 Recommendations Recommendations: Management Recommendatons Specimens Specimens: None Radiation Exposure (mGy) 665 mGy. Fluoro time 4.8 min. Contrast (mls) 45 ml Procedural Complication(s) None Disposition PCU I attest to the content of the Intraoperative Record and any orders documented therein. Any exceptions are noted below. [facility] Card Cath Procedure Codes Cardiac Catheterization Procedure 1: Cardiovascular Cath Procedures: 43916 Coronaries & LHC (+/-LV) & RHC Moderate Sedation Procedure 1: Sedation/Anesthesia: 22637 Mod Sedation by the same physician;Init15 Min Child Age 5 & Up Procedure 2: Sedation/Anesthesia: 27699 Mod Sedation by the same physician; Ea [id number] Minutes PG Care Time/CCT Total # of Minutes Spent Total Time Spent with Patient: Total time spent is greater than 50% in coordination of care (as documented) at patient's floor/unit and/or counseling patient:
[2022-04-18 15:05] LABS: iSTAT Arterial Blood Gas HCO3 23 meg/L (19-24); iSTAT Arterial Blood Gas pCO2 33 mmHg (35-46); iSTAT Arterial Blood Gas pH 7.45 (7.35-7.45); iSTAT Arterial Blood Gas pO2 64 mmHg (80-95); iSTAT Carbon Dioxide 24 mmol/L (24-31); iSTAT Hematocrit 34 % (37-47); iSTAT Hemoglobin 11.6 g/dl (12.0-16.0); iSTAT Potassium 3.6 mmol/L (3.3-5.0); iSTAT Sodium 142 mmol/L (135-144)
[2022-04-18 16:36] LABS: iSTAT Arterial Blood Gas HCO3 25 meg/L (19-24); iSTAT Arterial Blood Gas pCO2 38 mmHg (35-46); iSTAT Arterial Blood Gas pH 7.43 (7.35-7.45); iSTAT Arterial Blood Gas pO2 < 32 mmHg (80-95); iSTAT Carbon Dioxide 26 mmol/L (24-31); iSTAT Hematocrit 35 % (37-47); iSTAT Hemoglobin 11.9 g/dl (12.0-16.0); iSTAT Potassium 3.8 mmol/L (3.3-5.0); iSTAT Sodium 141 mmol/L (135-144)
--- NOTE | 2022-04-18 16:59 | Cardiology Progress Note ---
Date of Service April 18, 2022 Assessment & Plan (1) Acute HFrEF (heart failure with reduced ejection fraction): (2) Cardiomyopathy: (3) CAD (coronary artery disease): (4) Elevated troponin: (5) Chest pain: (6) Mitral regurgitation: (7) Dyslipidemia: (8) Hypertension: (9) Tobacco dependence: (10) Pericardial effusion: Plan ASSESSMENT/PLAN: 1. Acute heart failure with reduced EF: Has received Lasix 40 mg IV today. Fluid balance has not been complete. She still appears mildly hypervolemic on exam. Filling pressures during cardiac catheterization more impressive. Lasix 40 mg IV twice daily. Start spironolactone 25 mg daily. Discontinue lisinopril and initiate Entresto 36 hours later. SGLT 2 inhibitor recommended. Heart failure referral. 2. Cardiomyopathy: Nonischemic. Secondary work-up ordered. If LV systolic function does not improve with medical therapy as above. Optimal medical therapy, would recommend ICD for primary prevention. 3. CAD: Nonobstructive. Aspirin 81 mg daily. No angina. High intensity statin therapy. Beta-mary. 4. Elevated troponin: Only minimally elevated and flat trend. Likely due to demand ischemia. 5. Chest pain: Chronic and stable symptom. Chest pain not consistent with ischemic heart disease. 6. Mitral regurgitation: Chronic. Eccentric and likely moderate. Continue to monitor. 7. Dyslipidemia: Continue statin therapy. LDL has been well controlled. Replace simvastatin with high intensity statin therapy. 8. Hypertension: Mostly normotensive today. Adjusting medical therapy as above. 9. Tobacco abuse: Recommended that she stop smoking. 10. COPD exacerbation: COPD most recently described as moderate on PFT's in March of 2021. Symptoms have improved with diuresis and medications for COPD. Defer COPD management to primary hospitalist. 11. Pericardial effusion: She clinically is not in tamponade. Pericardial effusion noted on September 2019 echo. Can monitor over time. 12. Disposition: Cardiology will continue to follow. Patient care communicated with Dr. Godinez of the primary hospitalist service. Anjana Olea of the heart failure program was also notified to enroll her in the program. Highly complex medical issues. Admission and Anticipated Discharge Date Admission Date: April 17, 2022 Subjective She feels better today than on presentation but breathing otherwise has been mostly stable since yesterday afternoon/evening. She denies chest pain, syncope, palpitations, edema, or bleeding. She was on supplemental oxygen when seen earlier today. She still has orthopnea. She underwent cardiac catheterization today and tolerated the procedure well. Physical Exam Physical Exam: Gen.: No acute distress. Alert and oriented. HEENT: Anicteric sclera. Neck: Mild JVD. Cardiac: No ventricular heave. Regular. Normal S1-S2. 1/6 systolic murmur. No rubs or gallops. Pulmonary: Decreased breath sounds throughout, but otherwise clear to auscultation bilaterally without wheezes, rales, or rhonchi. Abdomen: Soft, nontender, nondistended, with normoactive bowel sounds. No bruits noted. Extremities: 2+ radial pulses bilaterally. 2+ posterior tibialis pulses bilaterally. Trace bilateral lower extremity edema. No cyanosis. Psychiatric: Affect appears appropriate. Results & Data ([facility]) Vital Signs (Past 12 Hours) Vital Signs Temp Pulse Pulse Resp BP BP Pulse Ox 04/18/22 15:15 105 H 16 156/95 H 96 04/18/22 15:00 71 16 118/83 96 04/18/22 11:53 36.7 C 104 H 21 124/84 96 04/18/22 08:01 36.7 C 95 H 19 130/76 92 04/18/22 07:17 04/18/22 07:12 92 H 04/18/22 07:08 90 16 95 O2 Del Method O2 Flow Rate 04/18/22 15:15 Room Air 04/18/22 15:00 Room Air 04/18/22 11:53 Nasal Cannula 3 04/18/22 08:01 Nasal Cannula 3 04/18/22 07:17 Nasal Cannula 2 04/18/22 07:12 04/18/22 07:08 Nasal Cannula 3 Intake & Output 04/16/22 04/17/22 04/18/22 04/19/22 06:59 06:59 06:59 06:59 Intake Total 1549.4 / 1549.4 385 / 385 Output Total 400 / 400 Balance 1549.4 / 1549.4 -15 / -15 Weight 158 lb 11.725 oz Laboratory Results Laboratory Results - last 24 hr 04/17/22 04/17/22 04/17/22 11:22 16:47 20:56 WBC RBC Hgb POC Hgb Hct POC Hct MCV MCH MCHC RDW Std Deviation RDW Coeff of Trav Plt Count MPV Immature Gran % (Auto) Neut % (Auto) Lymph % (Auto) [place] % (Auto) Eos % (Auto) Baso % (Auto) Neut # (Auto) Lymph # (Auto) [place] # (Auto) Eos # (Auto) Baso # (Auto) Immature Gran # (Auto) POC pH POC pCO2 POC pO2 POC HCO3 POC Total CO2 POC Base Excess POC ABG O2 Sat POC Sodium Sodium POC Potassium Potassium Chloride Carbon Dioxide Anion Gap BUN Creatinine Est Cr Clr Drug Dosing Est GFR ( Amer) Est GFR (Non-Af Amer) BUN/Creatinine Ratio Glucose POC Glucose Estimat Average Glucose Hemoglobin A1c Calcium Troponin I High Sens 29.9 H D B-Natriuretic Peptide Urine Color Yellow Urine Appearance Clear Urine pH 6.5 Ur Specific [place] 1.006 Urine Protein Negative Urine Glucose (UA) Negative Urine Ketones Negative Urine Blood Negative Urine Nitrite Negative Urine Bilirubin Negative Urine Urobilinogen Negative Ur Leukocyte Esterase Negative Adenovirus (PCR) Not Detected B. pertussis DNA (PCR) Not Detected B.parapertussis DNA PCR Not Detected C. pneumoniae DNA (PCR) Not Detected Coronavirus OC43 (PCR) Not Detected Coronavirus HKU1 (PCR) Not Detected Coronavirus 229E (PCR) Not Detected SARS-CoV-2 (PCR) Not Detected Coronavirus NL63 (PCR) Not Detected Human Metapneumovir PCR Not Detected Influenza Type A (PCR) Not Detected Influenza Type B (PCR) Not Detected M. pneumoniae (PCR) Not Detected Parainfluenza 1 (PCR) Not Detected Parainfluenza 2 (PCR) Not Detected Parainfluenza 3 (PCR) Not Detected Parainfluenza 4 (PCR) Not Detected RSV (PCR) Not Detected Entero/Rhino (PCR) Not Detected 04/18/22 04/18/22 04/18/22 03:18 03:19 03:19 WBC RBC Hgb POC Hgb Hct POC Hct MCV MCH MCHC RDW Std Deviation RDW Coeff of Trav Plt Count MPV Immature Gran % (Auto) Neut % (Auto) Lymph % (Auto) [place] % (Auto) Eos % (Auto) Baso % (Auto) Neut # (Auto) Lymph # (Auto) [place] # (Auto) Eos # (Auto) Baso # (Auto) Immature Gran # (Auto) POC pH POC pCO2 POC pO2 POC HCO3 POC Total CO2 POC Base Excess POC ABG O2 Sat POC Sodium Sodium POC Potassium Potassium Chloride Carbon Dioxide Anion Gap BUN Creatinine Est Cr Clr Drug Dosing Est GFR ( Amer) Est GFR (Non-Af Amer) BUN/Creatinine Ratio Glucose POC Glucose Estimat Average Glucose 111 Hemoglobin A1c 5.5 Calcium Troponin I High Sens 28.6 H B-Natriuretic Peptide 2405 H Urine Color Urine Appearance Urine pH Ur Specific [place] Urine Protein Urine Glucose (UA) Urine Ketones Urine Blood Urine Nitrite Urine Bilirubin Urine Urobilinogen Ur Leukocyte Esterase Adenovirus (PCR) B. pertussis DNA (PCR) B.parapertussis DNA PCR C. pneumoniae DNA (PCR) Coronavirus OC43 (PCR) Coronavirus HKU1 (PCR) Coronavirus 229E (PCR) SARS-CoV-2 (PCR) Coronavirus NL63 (PCR) Human Metapneumovir PCR Influenza Type A (PCR) Influenza Type B (PCR) M. pneumoniae (PCR) Parainfluenza 1 (PCR) Parainfluenza 2 (PCR) Parainfluenza 3 (PCR) Parainfluenza 4 (PCR) RSV (PCR) Entero/Rhino (PCR) 04/18/22 04/18/22 04/18/22 03:19 03:19 08:32 WBC 7.81 RBC 3.65 L Hgb 12.2 POC Hgb Hct 36.0 POC Hct MCV 98.6 MCH 33.4 MCHC 33.9 RDW Std Deviation 45.8 RDW Coeff of Trav 12.6 Plt Count 318 MPV 10.3 Immature Gran % (Auto) 0.6 Neut % (Auto) 91.5 Lymph % (Auto) 5.5 [place] % (Auto) 2.3 Eos % (Auto) 0.0 Baso % (Auto) 0.1 Neut # (Auto) 7.14 H Lymph # (Auto) 0.43 L [place] # (Auto) 0.18 L Eos # (Auto) 0.00 Baso # (Auto) 0.01 Immature Gran # (Auto) 0.05 H POC pH POC pCO2 POC pO2 POC HCO3 POC Total CO2 POC Base Excess POC ABG O2 Sat POC Sodium Sodium 139 POC Potassium Potassium 3.9 Chloride 105 Carbon Dioxide 24 Anion Gap 10 BUN 22 Creatinine 1.10 Est Cr Clr Drug Dosing 50.4 Est GFR ( Amer) 59.7 Est GFR (Non-Af Amer) 51.5 BUN/Creatinine Ratio 20.0 Glucose 149 H POC Glucose Estimat Average Glucose Hemoglobin A1c Calcium 9.0 Troponin I High Sens 26.0 H B-Natriuretic Peptide Urine Color Urine Appearance Urine pH Ur Specific [place] Urine Protein Urine Glucose (UA) Urine Ketones Urine Blood Urine Nitrite Urine Bilirubin Urine Urobilinogen Ur Leukocyte Esterase Adenovirus (PCR) B. pertussis DNA (PCR) B.parapertussis DNA PCR C. pneumoniae DNA (PCR) Coronavirus OC43 (PCR) Coronavirus HKU1 (PCR) Coronavirus 229E (PCR) SARS-CoV-2 (PCR) Coronavirus NL63 (PCR) Human Metapneumovir PCR Influenza Type A (PCR) Influenza Type B (PCR) M. pneumoniae (PCR) Parainfluenza 1 (PCR) Parainfluenza 2 (PCR) Parainfluenza 3 (PCR) Parainfluenza 4 (PCR) RSV (PCR) Entero/Rhino (PCR) 04/18/22 04/18/22 04/18/22 14:37 14:37 16:22 WBC RBC Hgb POC Hgb 11.6 L 11.9 L Hct POC Hct 34 L 35 L MCV MCH MCHC RDW Std Deviation RDW Coeff of Trav Plt Count MPV Immature Gran % (Auto) Neut % (Auto) Lymph % (Auto) [place] % (Auto) Eos % (Auto) Baso % (Auto) Neut # (Auto) Lymph # (Auto) [place] # (Auto) Eos # (Auto) Baso # (Auto) Immature Gran # (Auto) POC pH 7.45 7.43 POC pCO2 33 L 38 POC pO2 64 L < 32 L POC HCO3 23 25 H POC Total CO2 24 26 POC Base Excess -1.0 1.0 POC ABG O2 Sat 93.0 62.0 L POC Sodium 142 141 Sodium POC Potassium 3.6 3.8 Potassium Chloride Carbon Dioxide Anion Gap BUN Creatinine Est Cr Clr Drug Dosing Est GFR ( Amer) Est GFR (Non-Af Amer) BUN/Creatinine Ratio Glucose POC Glucose 107 H Estimat Average Glucose Hemoglobin A1c Calcium Troponin I High Sens B-Natriuretic Peptide Urine Color Urine Appearance Urine pH Ur Specific [place] Urine Protein Urine Glucose (UA) Urine Ketones Urine Blood Urine Nitrite Urine Bilirubin Urine Urobilinogen Ur Leukocyte Esterase Adenovirus (PCR) B. pertussis DNA (PCR) B.parapertussis DNA PCR C. pneumoniae DNA (PCR) Coronavirus OC43 (PCR) Coronavirus HKU1 (PCR) Coronavirus 229E (PCR) SARS-CoV-2 (PCR) Coronavirus NL63 (PCR) Human Metapneumovir PCR Influenza Type A (PCR) Influenza Type B (PCR) M. pneumoniae (PCR) Parainfluenza 1 (PCR) Parainfluenza 2 (PCR) Parainfluenza 3 (PCR) Parainfluenza 4 (PCR) RSV (PCR) Entero/Rhino (PCR) Diagnostic Findings Telemetry personally reviewed: Sinus rhythm. No arrhythmia. Cardiac cath 04/18/2022: Coronary angiography: 1. Left main: No significant CAD. 2. Left anterior descending: LAD wraps around the apex. Mild luminal irregularities within the proximal LAD. Mid LAD 40% at bifurcation of large D1. 3. Circumflex: Codominant. Large caliber vessel. No significant CAD within the circumflex system. Very small caliber OM1 and OM 2. Large branching OM 3. Circumflex PDA and PL without significant CAD. 4. Right coronary artery: Codominant. Early mid RCA 30 to 40%. PDA and PL without significant CAD. Left heart catheterization: 1. Left ventriculography was not performed. 2. No aortic stenosis. 3. Severely elevated LVEDP; 28 mmHg. Right heart catheterization: 1. Pulmonary capillary wedge pressure: V wave 40 with a mean of 31 mmHg 2. Pulmonary artery pressure: 48/27 with a mean of 34 mmHg 3. Right ventricular pressure: 48/9 with EDP 14 mmHg 4. Right atrial pressure: A-wave 11, V wave 9, mean 7 mmHg 5. PVR 0.71 Wood units. 6. Cardiac output via thermodilution was 4.2 L/min with a cardiac index of 2.31 L/min/m. Medications Administered Current Inpatient Medications Acetaminophen (Acetaminophen 325 Mg Tab) 650 mg PO Q4H PRN PRN Reason: Pain or Fever Stop: 05/17/22 15:08 Al Hydrox/Mg Hydrox/Simethicone (Aluminum/Magnesium Susp 30 Ml Udc) 15 ml PO Q4H PRN PRN Reason: Dyspepsia Stop: 05/17/22 15:08 Albuterol (Albuterol Hfa 8 Gm Inhaler) 1 - 2 puffs INH Q4H PRN PRN Reason: sob Stop: 05/17/22 15:08 Albuterol (Albut/Ipratrop 3mg/0.5mg Neb 3 Ml Vial) 3 ml NEB Q2H PRN PRN Reason: Shortness of Breath/Wheezing Stop: 05/17/22 15:08 Clonidine HCl (Clonidine Hcl 0.1 Mg Tab) 0.1 mg PO BID KELLIE Stop: 05/17/22 20:59 Last Admin: 04/18/22 08:21 Dose: 0.1 mg Fluticasone Furoate (Fluticasone Furoate 100mcg 14 Puffs/Inhaler) 1 puffs INH DAILY [facility] Stop: 05/18/22 08:59 Last Admin: 04/18/22 08:22 Dose: 1 puffs Guaifenesin (Guaifenesin 600 Mg Tabcr) 1,200 mg PO BID [facility] Stop: 05/17/22 20:59 Last Admin: 04/18/22 08:21 Dose: 1,200 mg Doxycycline Hyclate 100 mg/ (Dextrose) 110 mls @ 50 mls/hr IV Q12H KELLIE Stop: 04/20/22 23:59 Last Infusion: 04/18/22 16:09 Dose: Infused Metoprolol Succinate (Metoprolol Succ 25mg Ext Rel Tab) 25 mg PO QAM [facility] Stop: 05/18/22 08:59 Last Admin: 04/18/22 08:21 Dose: 25 mg Nitroglycerin (Nitroglycerin Sl 0.4 Mg/Tab Tab) 0.4 mg SL PRN PRN PRN Reason: Chest Pain Stop: 05/17/22 15:08 Polyethylene Glycol (Polyethylene (Miralax) 17 Gm Pack) 17 gm PO DAILY PRN PRN Reason: Constipation Stop: 05/17/22 15:08 Prednisone (Prednisone 20 Mg Tab) 40 mg PO DAILY [facility] Stop: 04/22/22 08:59 Simvastatin (Simvastatin 20 Mg Tab) 20 mg PO QAM [facility] Stop: 05/18/22 08:59 Last Admin: 04/18/22 08:23 Dose: 20 mg Umeclidinium/Vilanterol (Umeclidinium/Vilanterol 62.5/25mcg 7 Puffs/Inhaler) 1 puffs INH DAILY KELLIE Stop: 05/18/22 08:59 Last Admin: 04/18/22 08:23 Dose: 1 puffs Valacyclovir HCl (Valacyclovir Hcl 500 Mg Tablet) 2,000 mg PO BID PRN PRN Reason: Cold Sores Stop: 04/27/22 15:08 Venlafaxine HCl (Venlafaxine Hcl Xr 150 Mg Capxr) 150 mg PO DAILY KELLIE Stop: 05/18/22 08:59 Last Admin: 04/18/22 08:22 Dose: 150 mg PG Care Time/CCT Total # of Minutes Spent Total Time Spent with Patient: Total time spent is greater than 50% in coordination of care (as documented) at patient's floor/unit and/or counseling patient: Coding Level of Care Code 28120 Office/Outpt Visit, Est Diagnoses Acute HFrEF (heart failure with reduced ejection fraction) I50.21 Cardiomyopathy I42.9 CAD (coronary artery disease) I25.10 Elevated troponin R77.8 Chest pain R07.9 Mitral regurgitation I34.0 Dyslipidemia E78.5 Hypertension I10 Tobacco dependence F17.200 Pericardial effusion I31.39
--- NOTE | 2022-04-18 16:59 | Post Anesthesia Assessment ---
Date of Service April 18, 2022 Post Sedation Assessment Vital Signs Temp Pulse Pulse Resp BP BP Pulse Ox 04/18/22 15:15 105 H 16 156/95 H 96 04/18/22 15:00 71 16 118/83 96 04/18/22 11:53 36.7 C 104 H 21 124/84 96 04/18/22 08:01 36.7 C 95 H 19 130/76 92 04/18/22 07:17 04/18/22 07:12 92 H 04/18/22 07:08 90 16 95 04/18/22 03:27 04/18/22 01:06 87 04/18/22 00:39 82 18 93 04/17/22 22:53 36.6 C 87 18 110/65 91 04/17/22 20:10 95 H 24 91 04/17/22 19:34 36.5 C 95 H 19 137/81 91 O2 Del Method O2 Flow Rate 04/18/22 15:15 Room Air 04/18/22 15:00 Room Air 04/18/22 11:53 Nasal Cannula 3 04/18/22 08:01 Nasal Cannula 3 04/18/22 07:17 Nasal Cannula 2 04/18/22 07:12 04/18/22 07:08 Nasal Cannula 3 04/18/22 03:27 Nasal Cannula 2 04/18/22 01:06 04/18/22 00:39 Nasal Cannula 3 04/17/22 22:53 Nasal Cannula 3 04/17/22 20:10 Nasal Cannula 3 04/17/22 19:34 Nasal Cannula 3 Recovery Score Activity: Moves 4 extremities Respiration: Deep Breath/Cough Circulation: +/-20% PreAnes Value Consciousness: Fully Awake Oxygen Saturation: > 92% On Room Air Post Anesthesia Score: 10 Discharge Sedation Level of Care: Fast Track Phase II Post Sedation Plan On clinical assessment, the patient appears to have tolerated the sedation without complications. Patient is recovering as anticipated. Patient will continue to be monitored by nursing and may be discharged when sedation discharge criteria are met per below protocol. Upon Completions of procedure up to 15 minutes continue every 5 minute vital signs and the P.A.R. score; then discharge to a Phase I or Fast Track to Phase II per the following guidelines: * Discharge Patient to appropriate Phase II area if PAR is 8 or greater or return to pre- procedure baseline. The post - procedure orders will be as directed. * If PAR score is less than 8 or not return to pre-procedure baseline then patient will follow Phase I monitoring till PAR is reached for Phase II. The Phase I may be done in procedure room or may call to secure a Phase I area. * If naloxone or flumazenil are used for reversal, hold in Phase I for continued monitoring from when last reversal dose was given for a minimum of 60 minutes or longer pending the nurse and/or physician discretion of patient condition before discharge to Phase II. Please call the Sedation Physician to re-evaluate and complete post-note for discharge to Phase II area. Do NOT discharge from procedure sedation or Phase 1 until post- sedation evaluation note is complete by procedure /sedation MD Sedation Discharge Instructions to be given to the patient at discharge to home.
[2022-04-18] MEDS ORDERED: SPIRONOLACTONE 25 MG TAB PO ONE (17:30)
[2022-04-18] MEDS: FUROSEMIDE 40 MG/4 ML VIAL IV SCH (17:42)
--- NOTE | 2022-04-18 19:27 | Billing Data ---
Date of Service April 18, 2022 Coding Level of Care Code 28798 Subseq Hosp Care Lvl 3
--- NOTE | 2022-04-18 19:28 | Billing Data ---
Date of Service April 18, 2022 Coding Level of Care Code 26830 Subseq Hosp Care Lvl 3
[2022-04-19 05:58] LABS: Hematocrit (blood only) 36.9 % (34.1-44.9); Hemoglobin 12.5 g/dl (12.0-16.0); Mean Corpuscular Hemoglobin 33.2 pg (25.0-34.0); Mean Corpuscular Hgb Conc 33.9 g/dL (32.0-36.0); Mean Corpuscular Volume 97.9 fL (80.0-100.0); Mean Platelet Volume 10.2 fL (9.4-12.3); Platelet Count 328 K/uL (130-400); RDW Coefficient of Variation 12.7 % (11.5-14.5); RDW Standard Deviation 45.7 fL (36.4-46.3); Red Blood Count 3.77 M/uL (3.93-5.22)
[2022-04-19 06:28] LABS: BUN Creatinine Ratio 26.1 (10-20); Creatinine Clr Calc Pharmacy 37.6 ml/min; Est GFR (African American) 47.1 ml/min; Est GFR (Non-African American) 40.6 ml/min; Potassium 3.4 mmol/L (3.5-5.1)
[2022-04-19 06:36] LABS: Ferritin 131.6 ng/ml (8-388)
[2022-04-19] MEDS: ASPIRIN 81 MG ECTAB PO SCH (08:03)
[2022-04-19] MEDS: SPIRONOLACTONE 25 MG TAB PO SCH (08:03)
[2022-04-19] MEDS: FLUTICASONE FUROATE 100MCG 14 PUFFS/INHALER INH SCH (08:03)
[2022-04-19] MEDS: UMECLIDINIUM/VILANTEROL 62.5/25MCG 7 PUFFS/INHALER INH SCH (08:03)
[2022-04-19] MEDS: FUROSEMIDE 40 MG/4 ML VIAL IV SCH (08:04)
[2022-04-19] MEDS ORDERED: predniSONE 20 MG TAB PO SCH (09:00)
[2022-04-19] MEDS ORDERED: methylPREDNISolone 40 MG in SYRINGE 0 ML IV SCH (09:00)
[2022-04-19] MEDS: cloNIDine HCL 0.1 MG TAB PO SCH ×2 (09:26→20:05)
[2022-04-19] MEDS: guaiFENesin 600 MG TABCR PO SCH ×2 (09:27→20:05)
[2022-04-19] MEDS: VENLAFAXINE HCL XR 150 MG CAPXR PO SCH (09:27)
[2022-04-19] MEDS: METOPROLOL SUCC 25MG EXT REL TAB PO SCH (09:27)
--- NOTE | 2022-04-19 10:32 | Discharge Summary ---
Date of Service April 19, 2022 Admission HPI Per Admitting Provider Matilda Jennings is a 66-year-old female with a past medical history significant for COPD, bladder cancer, depression and anxiety, dyslipidemia, hypertension, who presents today with shortness of breath complaints of feeling generally ill. Starting Friday, she developed body aches, cough, and nasal congestion. Over the next day or so, she began to experience chills and felt like she had a fever at home. Her symptoms have gradually worsened and she is feeling short of breath and having a hard time laying flat due to shortness of breath and cough. No one at home is sick and she denies any known exposure to COVID or flu positive people. Does have a history of COPD and continues to smoke 1/3 pack/day, has Trelegy inhaler prescribed once daily with rescue inhaler as needed. She typically does not use either of these, but for the past week has been relying on both with minimal improvement. She is becoming winded with minimal activity and can no longer take care of her self at home. Patient denies any specific chest pain at this moment or over the past few days, but does report for the past several months she has had chest fullness "like an elephant is on my chest" that last for several hours before going away on its own. This happens both at rest and with activity it does not seem to be exacerbated by either. Again, not having any current chest pain, back pain, shoulder/arm/neck/jaw pain. No nausea, vomiting, abdominal pain, urinary symptoms. Upon presentation to the ED, she is mildly hypertensive, otherwise vital signs within normal limits and stable. SpO2 >90% on room air. Labs largely unremarkable, she does not have an elevated WBC, elevated Pro-Félix, and is COVID/flu/RSV negative. Initial troponin elevated at 40, repeat troponin slightly increased to 43. Her CXR shows interstitial thickening suggestive of pulmonary edema and small bilateral pleural effusions. Discharge Data Allergies Allergy/AdvReac Type Severity Reaction Status Date / Time No Known Drug Allergies Allergy Verified 11/22/21 13:25 Consultations 04/17/22 12:26 ED Decision to Admit Stat 04/17/22 16:20 Consult Cardiology Routine 04/18/22 15:24 [facility] Referral Routine Procedures Performed Operation Date: 04/18/22 13:00 Actual Procedures p Cineradiography w/Routine Exam - Juan M Perla MD s Cath, Right and Left Heart - Juan M Perla MD Ordered Studies 04/18/22 11:41 CL Cath Imgs for PACS use only Routine Hospital Course (1) Heart failure: -Patient described 1 week worsening SOB laying down, admit on 3L O2 -symptoms improved with lasix 20mg IV in ED -Echo: EF 30-35%, mod to sev reduced LV function, global hypokinesis, see chart for read -CXR: Interstitial thickening suggestive of pulmonary edema. Small bilateral pleural effusions. Associated bibasilar opacities favor atelectasis however pne umonia could appear similar. Radiographic follow-up is recommended. -will try lasix 40mg IV daily until SOB resolves -cardiology consulted recommend cardiac cath today (2) Elevated troponin: - Max elevated to 43 now downtrending - EKG: Normal sinus rhythm Possible Left atrial enlargement Left axis deviation Left bundle branch block Abnormal ECG When compared with ECG of 17-APR-2022 10:16, (unconfirmed) No significant change was found - LBBB is not a new finding, previously seen on EKG from 2019. - she previously followed with cardiology, last seen in 2019 for LBBB and atypical chest discomfort, at that point was only occurring at rest. * Nuclear stress test August 2019: Abnormal, suggesting anteroseptal infarction based lateral infarct, moderately reduced LV SF, EF 39% with global hypokinesis. * Echo September 2019: Lownormal LV systolic function with no regional wall motion abnormalities. Mild-moderate MR. - Consulted cardiology. (3) COPD exacerbation: - Patient has 5 days of flulike symptoms including fever/chills, cough, congestion, shortness of breath, body aches. - History of COPD, has rescue inhaler as needed and Trelegy which she also uses as needed (not used for several months), however has been taking daily this week with minimal alleviation. - CXR shows interstitial thickening stress of pulmonary edema, bibasilar atel ectasis, no obvious pneumonia. - Labs are largely unrevealing, neg leukocytosis lactate procal - In the ED, received nebulizer treatment and 10 mg IV dexamethasone, felt slightly better, was diagnosed with COPD exacerbation - Was started on Solu-Medrol 40 mg every 8 hours, DuoNebs scheduled and as needed, continue home inhalers, doxycycline twice daily (QTC of 523). At this time symptoms likely due to CHF, however given she was already treated with above, difficult to parse will complete 3 days doxycycline, transition solumedrol to prednisone and continue until symptoms resolve - COVID/flu/RSV negative, bio fire respiratory panel negative. - Mucinex, Tylenol for supportive care. (4) History of tobacco use: - Currently smoking 1/3 pack/day and declines nicotine patch while admitted. - Patient educated on tobacco cessation to avoid further COPD exacerbations and hospitalizations. (5) Bladder neoplasm of uncertain malignant potential: - History of such, undergoes surveillance cystoscopies, last on 02/06/2022. We will continue to follow-up annually. (6) Prediabetes: - Hold metformin. A1c in October was 5.9%. here 5.5 (7) Dyslipidemia: - Continue simvastatin. (8) Hypertension: - Continue clonidine 0.1 mg twice daily, metoprolol 25 mg in a.m., lisinopril 5 mg in AM. (9) Depression with anxiety: - Continue venlafaxine. Plan - Admit to med/telemetry. - SCDs for DVT PPx. - DNR/DNI. Discharge Plan Discharge Items Reason For Visit: COPD EXACERBATION Follow-up/Referrals: Anabela Echevarria DO [Primary Care Provider] - Medications and DC Order Prescriptions: New Entresto 24-26 mg tablet 1 tab PO BID Qty: 60 0RF No Action metoprolol succinate 25 mg tablet extended release 24 hr 25 mg PO QAM Qty: 90 3RF metformin 1,000 mg tablet 1,000 mg PO QAM Qty: 90 1RF simvastatin 20 mg tablet 20 mg PO QAM Qty: 90 1RF clonidine HCl 0.1 mg tablet 0.1 mg PO BID Qty: 180 1RF lisinopril 5 mg tablet 5 mg PO QAM valacyclovir 1 gram tablet 2,000 mg PO BID PRN (Reason: Cold Sores) Qty: 30 1RF venlafaxine 150 mg capsule,extended release 24hr 150 mg PO DAILY Qty: 30 5RF albuterol sulfate [Ventolin HFA] 90 mcg/actuation HFA aerosol inhaler 1 puff inhalation Q4H PRN (Reason: sob) Qty: 8.5 4RF Rx Instructions: 1-2 puffs every 4-6 hrs as needed cough/wheezing/sob Trelegy Ellipta 100-62.5-25 mcg blister with device 1 inh INH QAM Qty: 3 1RF Admission Data Admit Date/Time: 04/18/22 19:27 Attending Provider: Dustin Godinez Admit Provider: Kavon Pope Primary Care Provider: Anabela Echevarria Other Providers: Kavon Pope ; Juan M Perla ; Anjana Olea
[2022-04-19] MEDS: DOXYCYCLINE HYCLATE 100 MG in DEXTROSE 5% 100 ML IV SCH (12:21)
--- NOTE | 2022-04-19 12:45 | Hospitalist Progress Note ---
Date of Service April 19, 2022 Assessment & Plan (1) Heart failure: Plan: -Patient described 1 week worsening SOB laying down, admit on 3L O2 - in December, patient still very teary -symptoms improved with lasix 20mg IV in ED -Echo: EF 30-35%, mod to sev reduced LV function, global hypokinesis, see chart for read -CXR: Interstitial thickening suggestive of pulmonary edema. Small bilateral pleural effusions. Associated bibasilar opacities favor atelectasis however pneumonia could appear similar. Radiographic follow-up is recommended. -started on daily lasix 40mg IV until SOB resolved, stopped 04/19 -cardiology consulted recommend cardiac cath today, no significant CAD found started spironolactone 25mg daily started entresto 1 tab BID started empagliflozin 10mg daily continue metoprolol succinate 25mg daily started atorvastatin 40mg daily referral placed to heart failure clinic -stopped lisinopril -stopped simvastatin -patient educated on exercise, decrease salt intake, daily weights to monitor fluids (2) Elevated troponin: Plan: - Max elevated to 43 now downtrending - EKG: Normal sinus rhythm Possible Left atrial enlargement Left axis deviation Left bundle branch block Abnormal ECG When compared with ECG of 17-APR-2022 10:16, (unconfirmed) No significant change was found - LBBB is not a new finding, previously seen on EKG from 2018. - she previously followed with cardiology, last seen in 2019 for LBBB and atypical chest discomfort, at that point was only occurring at rest. * Nuclear stress test August 2019: Abnormal, suggesting anteroseptal infarction based lateral infarct, moderately reduced LV SF, EF 39% with global hypokinesis. * Echo September 2019: Lownormal LV systolic function with no regional wall motion abnormalities. Mild-moderate MR. - Consulted cardiology. (3) COPD exacerbation: Plan: - Patient has 5 days of flulike symptoms including fever/chills, cough, crystal estion, shortness of breath, body aches. - History of COPD, has rescue inhaler as needed and Trelegy which she also uses as needed (not used for several months), however has been taking daily this week with minimal alleviation. - CXR shows interstitial thickening stress of pulmonary edema, bibasilar atelectasis, no obvious pneumonia. - COVID/flu/RSV negative, bio fire respiratory panel negative. - Labs are largely unrevealing, neg leukocytosis lactate procal - In the ED, received nebulizer treatment and 10 mg IV dexamethasone, felt slightly better, was diagnosed with COPD exacerbation - Was started on Solu-Medrol 40 mg every 8 hours, DuoNebs scheduled and as needed, continue home inhalers, doxycycline twice daily (QTC of 523). As of 04/19, symptoms determined to be largely from CHF exacerbation, unlikely to be COPD. DC'd steroids, abx (4) History of tobacco use: Plan: - Currently smoking 1/3 pack/day and declines nicotine patch while admitted. - Patient educated on tobacco cessation to avoid further COPD exacerbations and hospitalizations. 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 We will continue to follow-up annually. (6) Prediabetes: Plan: - Hold metformin. A1c in October was 5.9%. here 5.5 (7) Dyslipidemia: Plan: - switched to atorvastatin (8) Hypertension: Plan: - Continue clonidine 0.1 mg twice daily, metoprolol 25 mg in a.m., -started on entresto, spironolactone -lasix stopped, will consider daily dosage tomorrow (9) Depression with anxiety: Plan: - Continue venlafaxine. Plan - Admit to med/telemetry. - SCDs for DVT PPx. - DNR/DNI. Admission and Anticipated Discharge Date Admission Date: April 18, 2022 Supervising Physician Co-Signing Physician Notes I personally examined the patient and verified all hughes points of history and exam, discussed case, and agree with decision making with Dr La. Off oxygen. Feeling better overall. Still little lightheaded. Vitals noted, in general she is awake and alert pleasant no distress. HEENT normocephalic atraumatic mucous membranes moist. Breathing unlabored no accessory muscle use good effort. Skin shows no rashes no pallor or icterus. Neuro without focal deficits. Acute on probably chronic HFrEF causing acute hypoxic respiratory failure present on admissiondiuresis, afterload reduction, SGLT2. Doing better follow into tomorrow, hopefully lightheadedness improves that she adapts to the medications. Hopefully home soon Otherwise as above Subjective Patient seen at bedside, calm comfortable cooperative, denies any SOB laying down no chest pain abd pain cough. Patient understands she has heart failure and needs to be on medication to manage her condition. Patient informed of healthy lifestyle changes such as exercise, low salt diet, and daily weights to monitor her water weight. She states walking locally is difficult as that was her previous hobby with her who in December, she is still very tearful about it. Review of Systems Review of Systems: Negative fever chills Negative headache dizziness Negative chest pain palpitations SOB Negative nausea vomitting diarrhea constipation Negative numbness tingling rash swelling Physical Exam Constitutional: WD/WN, vitals as above Eyes: PERRL, conjunctivae normal, anicteric sclerae ENMT: external ear and nose normal, oropharynx normal Neck: trachea midline, no thyromegaly Respiratory: normal respiratory effort, lungs clear to auscultation Cardiovascular: RRR, no murmur, no edema Gastrointestinal (Abdomen): normal bowel sounds, soft, nontender, no hepatosplenomegaly Skin: no rashes, warm and dry Results & Data Results & Data ([facility]) Vital Signs (Past 12 Hours) Vital Signs Temp Pulse Resp BP Pulse Ox O2 Del Method 04/19/22 11:33 36.6 C 72 18 125/77 91 Room Air 04/19/22 08:00 Room Air 04/19/22 07:17 36.6 C 81 2 L 137/83 91 Room Air 04/19/22 03:41 36.5 C 71 15 130/80 93 Room Air Diagnostic Findings Laboratory Results WBC 12.50 K/ul (4.8-10.8) H 04/19/22 05:27 RBC 3.77 M/uL (3.93-5.22) L 04/19/22 05:27 Hgb 12.5 g/dl (12.0-16.0) 04/19/22 05:27 POC Hgb 11.6 g/dl (12.0-16.0) L 04/18/22 14:37 POC Hgb 11.9 g/dl (12.0-16.0) L 04/18/22 14:37 Hct 36.9 % (34.1-44.9) 04/19/22 05:27 POC Hct 34 % (37-47) L 04/18/22 14:37 POC Hct 35 % (37-47) L 04/18/22 14:37 MCV 97.9 fL (80.0-100.0) 04/19/22 05:27 MCH 33.2 pg (25.0-34.0) 04/19/22 05:27 MCHC 33.9 g/dL (32.0-36.0) 04/19/22 05:27 RDW Std Deviation 45.7 fL (36.4-46.3) 04/19/22 05: RDW Coeff of Trav 12.7 % (11.5-14.5) 04/19/22 05:27 Plt Count 328 K/uL (130-400) 04/19/22 05: MPV 10.2 fL (9.4-12.3) 04/19/22 05:27 Immature Gran % (Auto) 0.6 % 04/18/22 03:19 Neut % (Auto) 91.5 % 04/18/22 03:19 Lymph % (Auto) 5.5 % 04/18/22 03:19 [place] % (Auto) 2.3 % 04/18/22 03:19 Eos % (Auto) 0.0 % 04/18/22 03:19 Baso % (Auto) 0.1 % 04/18/22 03:19 Neut # (Auto) 7.14 K/uL (1.4-6.5) H 04/18/22 03:19 Lymph # (Auto) 0.43 K/uL (1.2-3.4) L 04/18/22 03:19 [place] # (Auto) 0.18 K/uL (0.24-0.82) L 04/18/22 03:19 Eos # (Auto) 0.00 K/uL (0-0.50) 04/18/22 03:19 Baso # (Auto) 0.01 K/uL (0-0.2) 04/18/22 03:19 Immature Gran # (Auto) 0.05 K/uL (0.00-0.02) H 04/18/22 03:19 POC pH 7.43 (7.35-7.45) 04/18/22 14:37 POC pH 7.45 (7.35-7.45) 04/18/22 14:37 POC pCO2 33 mmHg (35-46) L 04/18/22 14:37 POC pCO2 38 mmHg (35-46) 04/18/22 14:37 POC pO2 64 mmHg (80-95) L 04/18/22 14:37 POC pO2 < 32 mmHg (80-95) L 04/18/22 14:37 POC HCO3 23 angi/L (19-24) 04/18/22 14:37 POC HCO3 25 angi/L (19-24) H 04/18/22 14:37 POC Total CO2 24 mmol/L (24-31) 04/18/22 14:37 POC Total CO2 26 mmol/L (24-31) 04/18/22 14:37 POC Base Excess -1.0 angi/L (-9-1.8) 04/18/22 14:37 POC Base Excess 1.0 angi/L (-9-1.8) 04/18/22 14:37 POC ABG O2 Sat 62.0 % (90-95) L 04/18/22 14:37 POC ABG O2 Sat 93.0 % (90-95) 04/18/22 14:37 POC Sodium 141 mmol/L (135-144) 04/18/22 14:37 POC Sodium 142 mmol/L (135-144) 04/18/22 14:37 Sodium 142 mmol/L (136-145) 04/19/22 05:27 POC Potassium 3.6 mmol/L (3.3-5.0) 04/18/22 14:37 POC Potassium 3.8 mmol/L (3.3-5.0) 04/18/22 14:37 Potassium 3.4 mmol/L (3.5-5.1) L 04/19/22 05:27 Chloride 107 mmol/L (98-107) 04/19/22 05:27 Carbon Dioxide 26 mmol/L (21-32) 04/19/22 05:27 Anion Gap 9 (3-11) 04/19/22 05:27 BUN 35 mg/dl (6-23) H 04/19/22 05:27 Creatinine 1.34 mg/dl (0.6-1.2) H 04/19/22 05:27 Est Cr Clr Drug Dosing 37.6 ml/min 04/19/22 05:27 Est GFR ( Amer) 47.1 ml/min 04/19/22 05:27 Est GFR (Non-Af Amer) 40.6 ml/min 04/19/22 05:27 BUN/Creatinine Ratio 26.1 (10-20) H 04/19/22 05:27 Glucose 81 mg/dl (70-99(Fasting)) 04/19/22 05:27 POC Glucose 107 mg/dl (70-99) H 04/18/22 16:22 Estimat Average Glucose 111 mg/dl 04/18/22 03:19 Hemoglobin A1c 5.5 % (4.5-5.6) 04/18/22 03:19 Lactate 1.2 mmol/L (0.4-2.0) 04/17/22 11:38 Calcium 9.0 mg/dl (8.5-10.1) 04/19/22 05:27 Magnesium 2.1 mg/dl (1.7-2.4) 04/17/22 10: Transferrin 241 mg/dl (200-360) 04/19/22 05:27 Ferritin 131.6 ng/ml (8-388) 04/19/22 05:27 Troponin I High Sens 26.0 pg/ml (0-14) H 04/18/22 08:32 B-Natriuretic Peptide 2405 pg/ml (0-100) H 04/18/22 03:18 Procalcitonin < 0.05 ng/ml (0-0.5) 04/17/22 10:20 TSH 1.153 uIu/ml (0.300-4.500) 04/19/22 05:27 Urine Color Yellow 04/17/22 16:47 Urine Appearance Clear (Clear) 04/17/22 16:47 Urine pH 6.5 (4.5-7.5) 04/17/22 16:47 Ur Specific [place] 1.006 (1.000-1.030) 04/17/22 16:47 Urine Protein Negative (Negative) 04/17/22 16:47 Urine Glucose (UA) Negative (Negative) 04/17/22 16:47 Urine Ketones Negative (Negative) 04/17/22 16:47 Urine Blood Negative (Negative) 04/17/22 16:47 Urine Nitrite Negative (Negative) 04/17/22 16:47 Urine Bilirubin Negative (Negative) 04/17/22 16:47 Urine Urobilinogen Negative (Negative) 04/17/22 16:47 Ur Leukocyte Esterase Negative (Negative) 04/17/22 16:47 Adenovirus (PCR) Not Detected (NotDetected) 04/17/22 11:22 B. pertussis DNA (PCR) Not Detected (NotDetected) 04/17/22 11:22 B.parapertussis DNA PCR Not Detected (NotDetected) 04/17/22 11:22 C. pneumoniae DNA (PCR) Not Detected (NotDetected) 04/17/22 11:22 Coronavirus OC43 (PCR) Not Detected (NotDetected) 04/17/22 11:22 Coronavirus HKU1 (PCR) Not Detected (NotDetected) 04/17/22 11:22 Coronavirus 229E (PCR) Not Detected (NotDetected) 04/17/22 11:22 SARS-CoV-2 (PCR) NEGATIVE (Negative) 04/17/22 11:22 SARS-CoV-2 (PCR) Not Detected (NotDetected) 04/17/22 11:22 Coronavirus NL63 (PCR) Not Detected (NotDetected) 04/17/22 11:22 Human Metapneumovir PCR Not Detected (NotDetected) 04/17/22 11:22 Influenza Type A (PCR) Negative (Neg) 04/17/22 11:22 Influenza Type A (PCR) Not Detected (NotDetected) 04/17/22 11:22 Influenza Type B (PCR) Negative (Neg) 04/17/22 11:22 Influenza Type B (PCR) Not Detected (NotDetected) 04/17/22 11:22 M. pneumoniae (PCR) Not Detected (NotDetected) 04/17/22 11:22 Parainfluenza 1 (PCR) Not Detected (NotDetected) 04/17/22 11:22 Parainfluenza 2 (PCR) Not Detected (NotDetected) 04/17/22 11:22 Parainfluenza 3 (PCR) Not Detected (NotDetected) 04/17/22 11:22 Parainfluenza 4 (PCR) Not Detected (NotDetected) 04/17/22 11:22 RSV (RT-PCR) Negative (Neg) 04/17/22 11:22 RSV (PCR) Not Detected (NotDetected) 04/17/22 11:22 Entero/Rhino (PCR) Not Detected (NotDetected) 04/17/22 11:22 Impressions Chest X-Ray 04/17/22 10:48 XR chest 1V portable CLINICAL HISTORY: fever, shob, cough COMPARISON STUDY: Chest radiograph August 19, 2019. Chest CT May 03, 2021. FINDINGS: There is no pneumothorax. Small bilateral pleural effusions are noted with bibasilar opacities. Interstitial thickening favors pulmonary edema. Mild cardiomegaly is noted. IMPRESSION: 1. Interstitial thickening suggestive of pulmonary edema. 2. Small bilateral pleural effusions. Associated bibasilar opacities favor atelectasis however pneumonia could appear similar. Radiographic follow-up is recommended. ACT 112: Negative or not required by law. Electronically signed by: Pablo Mcgowan M.D. 04/17/2022 11:27 AM Medications Administered Current Inpatient Medications Acetaminophen (Acetaminophen 325 Mg Tab) 650 mg PO Q4H PRN PRN Reason: Pain or Fever Stop: 05/17/22 15:08 Al Hydrox/Mg Hydrox/Simethicone (Aluminum/Magnesium Susp 30 Ml Udc) 15 ml PO Q4H PRN PRN Reason: Dyspepsia Stop: 05/17/22 15:08 Albuterol (Albuterol Hfa 8 Gm Inhaler) 1 - 2 puffs INH Q4H PRN PRN Reason: sob Stop: 05/17/22 15:08 Albuterol (Albut/Ipratrop 3mg/0.5mg Neb 3 Ml Vial) 3 ml NEB Q2H PRN PRN Reason: Shortness of Breath/Wheezing Stop: 05/17/22 15:08 Aspirin (Aspirin 81 Mg Ectab) 81 mg PO QAM KELLIE Stop: 05/19/22 08:59 Last Admin: 04/19/22 08:03 Dose: 81 mg Atorvastatin Calcium (Atorvastatin 40 Mg Tab) 40 mg PO HS KELLIE Stop: 05/19/22 20:59 Clonidine HCl (Clonidine Hcl 0.1 Mg Tab) 0.1 mg PO BID KELLIE Stop: 05/17/22 20:59 Last Admin: 04/19/22 09:26 Dose: 0.1 mg Fluticasone Furoate (Fluticasone Furoate 100mcg 14 Puffs/Inhaler) 1 puffs INH DAILY KELLIE Stop: 05/18/22 08:59 Last Admin: 04/19/22 08:03 Dose: 1 puffs Furosemide (Furosemide 40 Mg/4 Ml Vial) 40 mg IV [id number] KELLIE Stop: 05/18/22 17:44 Last Admin: 04/19/22 08:04 Dose: 40 mg Guaifenesin (Guaifenesin 600 Mg Tabcr) 1,200 mg PO BID KELLIE Stop: 05/17/22 20:59 Last Admin: 04/19/22 09:27 Dose: 1,200 mg Doxycycline Hyclate 100 mg/ (Dextrose) 110 mls @ 50 mls/hr IV Q12H KELLIE Stop: 04/20/22 23:59 Last Admin: 04/19/22 12:21 Dose: 50 mls/hr Metoprolol Succinate (Metoprolol Succ 25mg Ext Rel Tab) 25 mg PO QAM [facility] Stop: 05/18/22 08:59 Last Admin: 04/19/22 09:27 Dose: 25 mg Nitroglycerin (Nitroglycerin Sl 0.4 Mg/Tab Tab) 0.4 mg SL PRN PRN PRN Reason: Chest Pain Stop: 05/17/22 15:08 Polyethylene Glycol (Polyethylene (Miralax) 17 Gm Pack) 17 gm PO DAILY PRN PRN Reason: Constipation Stop: 05/17/22 15:08 Prednisone (Prednisone 20 Mg Tab) 40 mg PO DAILY [facility] Stop: 04/22/22 08:59 Last Admin: 04/19/22 09:26 Dose: 40 mg Sacubitril/Valsartan (Valsartan/Sacubitril 26/24mg Tab) 1 tab PO BID [facility] Stop: 05/19/22 20:59 Spironolactone (Spironolactone 25 Mg Tab) 25 mg PO QAM [facility] Stop: 05/19/22 08:59 Last Admin: 04/19/22 08:03 Dose: 25 mg Umeclidinium/Vilanterol (Umeclidinium/Vilanterol 62.5/25mcg 7 Puffs/Inhaler) 1 puffs INH DAILY [facility] Stop: 05/18/22 08:59 Last Admin: 04/19/22 08:03 Dose: 1 puffs Valacyclovir HCl (Valacyclovir Hcl 500 Mg Tablet) 2,000 mg PO BID PRN PRN Reason: Cold Sores Stop: 04/27/22 15:08 Venlafaxine HCl (Venlafaxine Hcl Xr 150 Mg Capxr) 150 mg PO DAILY [facility] Stop: 05/18/22 08:59 Last Admin: 04/19/22 09:27 Dose: 150 mg Resident Activity Tracking Resident Involvement: Resident Care Provided Care Provided: Adult Hospital Medicine
--- NOTE | 2022-04-19 13:43 | Cardiology Progress Note ---
Date of Service April 19, 2022 Assessment & Plan (1) Acute HFrEF (heart failure with reduced ejection fraction): (2) Cardiomyopathy: (3) CAD (coronary artery disease): (4) Elevated troponin: (5) Chest pain: (6) Mitral regurgitation: (7) Dyslipidemia: (8) Hypertension: (9) Tobacco dependence: (10) Pericardial effusion: Plan ASSESSMENT/PLAN: 1. Acute heart failure with reduced EF: Fluid balance not accurate as she has been flushing much of her urine before measured. Much improved clinically however. Given that labs suggest azotemia, will discontinue afternoon Lasix and reassess tomorrow. Continue spironolactone 25 mg daily. FRANCISCO inhibitor replaced by Entresto, starting tonight. Start Jardiance tomorrow. Heart failure referral. 2. Cardiomyopathy: Nonischemic. Secondary work-up ordered. If LV systolic function does not improve with medical therapy as above. Optimal medical therapy, would recommend ICD for primary prevention. 3. CAD: Nonobstructive. Aspirin 81 mg daily. No angina. High intensity statin therapy. Beta-mary. 4. Elevated troponin: Only minimally elevated and flat trend. Likely due to demand ischemia. 5. Chest pain: Chronic and stable symptom. Chest pain not consistent with ischemic heart disease. 6. Mitral regurgitation: Chronic. Eccentric and likely moderate. Continue to monitor. 7. Dyslipidemia: Continue statin therapy. LDL has been well controlled. Simvastatin has been replaced with high intensity statin therapy. 8. Hypertension: Blood pressure well controlled. Continue plan as above. 9. Tobacco abuse: Smoking cessation. 10. COPD exacerbation: COPD most recently described as moderate on PFT's in [facility] of 2020. Symptoms have improved with diuresis and medications for COPD. Defer COPD management to primary hospitalist. 11. Pericardial effusion: She clinically is not in tamponade. Pericardial effusion noted on September 2019 echo. Can monitor over time. 12. Disposition: Cardiology will continue to follow. Patient care communicated with Dr. La of the primary hospitalist service. Admission and Anticipated Discharge Date Admission Date: April 18, 2022 Subjective Patient feels much better today. She had some lightheadedness this morning when she got out of bed and has had intermittent palpitations but denies shortness of breath, orthopnea, syncope, chest pain, edema, or bleeding. She was alone in her hospital room. Physical Exam Physical Exam: Gen.: No acute distress. Alert and oriented. HEENT: Anicteric sclera. Neck: No appreciable JVD or hepatojugular reflux. Cardiac: No ventricular heave. Regular. Normal S1-S2. 1/6 systolic murmur. No rubs or gallops. Pulmonary: Decreased breath sounds throughout, but otherwise clear to auscultation bilaterally without wheezes, rales, or rhonchi. Abdomen: Soft, nontender, nondistended, with normoactive bowel sounds. No bruits noted. Extremities: 2+ radial pulses bilaterally. Right radial cath site is clean, dry, and intact without erythema or discharge. 2+ posterior tibialis pulses bilaterally. No significant edema. No cyanosis. Psychiatric: Affect appears appropriate. Results & Data ([facility]) Vital Signs (Past 12 Hours) Vital Signs Temp Pulse Resp BP Pulse Ox O2 Del Method 04/19/22 11:33 36.6 C 72 18 125/77 91 Room Air 04/19/22 08:00 Room Air 04/19/22 07:17 36.6 C 81 2 L 137/83 91 Room Air 04/19/22 03:41 36.5 C 71 15 130/80 93 Room Air Intake & Output 04/17/22 04/18/22 04/19/22 04/20/22 06:59 06:59 06:59 06:59 Intake Total 1549.4 / 1549.4 595 / 595 Output Total 1850 / 1850 Balance 1549.4 / 1549.4 -1255 / -1255 Weight 158 lb 11.725 oz 152 lb 1.903 oz Laboratory Results Laboratory Results - last 24 hr 04/18/22 04/18/22 04/18/22 14:37 14:37 16:22 WBC RBC Hgb POC Hgb 11.6 L 11.9 L Hct POC Hct 34 L 35 L MCV MCH MCHC RDW Std Deviation RDW Coeff of Trav Plt Count MPV POC pH 7.45 7.43 POC pCO2 33 L 38 POC pO2 64 L < 32 L POC HCO3 23 25 H POC Total CO2 24 26 POC Base Excess -1.0 1.0 POC ABG O2 Sat 93.0 62.0 L POC Sodium 142 141 Sodium POC Potassium 3.6 3.8 Potassium Chloride Carbon Dioxide Anion Gap BUN Creatinine Est Cr Clr Drug Dosing Est GFR ( Amer) Est GFR (Non-Af Amer) BUN/Creatinine Ratio Glucose POC Glucose 107 H Calcium Transferrin Ferritin Total Protein (PEP) Albumin (PEP) Csquf-3-Gidwshagr Byyzk-0-Cpqmyczft Kebl-8-Moorfwkq Kwpj-6-Frihtxms Gamma Globulins Monoclonal Peak 3 Ser Monoclonl Protein Ser Monoclonal Prot 2 PEP Interpretation Angiotensin Convert Enz TSH U Random Total Protein Ur Creatinine mg/dL Protein/Creatinin Ratio Urine Albumin (%) U Yapcg-1-Mslufkai (%) U Wqlwr-4-Eowhohbt (%) U Beta Globulin (%) U Gamma Globulin (%) U Abnormal Prot Band 1 U Abnormal Prot Band 2 U Abnormal Prot Band 3 Urine PEP Interpret 04/19/22 04/19/22 04/19/22 03:44 05:27 05:27 WBC 12.50 H RBC 3.77 L Hgb 12.5 POC Hgb Hct 36.9 POC Hct MCV 97.9 MCH 33.2 MCHC 33.9 RDW Std Deviation 45.7 RDW Coeff of Trav 12.7 Plt Count 328 MPV 10.2 POC pH POC pCO2 POC pO2 POC HCO3 POC Total CO2 POC Base Excess POC ABG O2 Sat POC Sodium Sodium 142 POC Potassium Potassium 3.4 L Chloride 107 Carbon Dioxide 26 Anion Gap 9 BUN 35 H Creatinine 1.34 H Est Cr Clr Drug Dosing 37.6 Est GFR ( Amer) 47.1 Est GFR (Non-Af Amer) 40.6 BUN/Creatinine Ratio 26.1 H Glucose 81 POC Glucose Calcium 9.0 Transferrin 241 Ferritin 131.6 Total Protein (PEP) Albumin (PEP) Sfspq-1-Rvchtrjiu Qofib-5-Jayujqkkk Ntih-8-Uigajczl Jxtv-2-Mzexklqq Gamma Globulins Monoclonal Peak 3 Ser Monoclonl Protein Ser Monoclonal Prot 2 PEP Interpretation Angiotensin Convert Enz TSH U Random Total Protein Pending Ur Creatinine mg/dL Pending Protein/Creatinin Ratio Pending Urine Albumin (%) Pending U Mmsrc-5-Jcmfjejw (%) Pending U Mfcje-1-Srulmnxl (%) Pending U Beta Globulin (%) Pending U Gamma Globulin (%) Pending U Abnormal Prot Band 1 Pending U Abnormal Prot Band 2 Pending U Abnormal Prot Band 3 Pending Urine PEP Interpret Pending 04/19/22 04/19/22 05:27 05:27 WBC RBC Hgb POC Hgb Hct POC Hct MCV MCH MCHC RDW Std Deviation RDW Coeff of Trav Plt Count MPV POC pH POC pCO2 POC pO2 POC HCO3 POC Total CO2 POC Base Excess POC ABG O2 Sat POC Sodium Sodium POC Potassium Potassium Chloride Carbon Dioxide Anion Gap BUN Creatinine Est Cr Clr Drug Dosing Est GFR ( Amer) Est GFR (Non-Af Amer) BUN/Creatinine Ratio Glucose POC Glucose Calcium Transferrin Ferritin Total Protein (PEP) Pending Albumin (PEP) Pending Acjha-9-Gngnpvzbq Pending Qcmtl-0-Xpznewcsl Pending Xumk-0-Zicrkuvs Pending Ggfi-7-Rdvxjhxc Pending Gamma Globulins Pending Monoclonal Peak 3 Pending Ser Monoclonl Protein Pending Ser Monoclonal Prot 2 Pending PEP Interpretation Pending Angiotensin Convert Enz Pending TSH 1.153 U Random Total Protein Ur Creatinine mg/dL Protein/Creatinin Ratio Urine Albumin (%) U Xqvje-6-Kwzlhktq (%) U Btcad-4-Fxmmrluq (%) U Beta Globulin (%) U Gamma Globulin (%) U Abnormal Prot Band 1 U Abnormal Prot Band 2 U Abnormal Prot Band 3 Urine PEP Interpret Diagnostic Findings Telemetry personally reviewed: Sinus rhythm. No arrhythmia. Medications Administered Current Inpatient Medications Acetaminophen (Acetaminophen 325 Mg Tab) 650 mg PO Q4H PRN PRN Reason: Pain or Fever Stop: 05/17/22 15:08 Al Hydrox/Mg Hydrox/Simethicone (Aluminum/Magnesium Susp 30 Ml Udc) 15 ml PO Q4H PRN PRN Reason: Dyspepsia Stop: 05/17/22 15:08 Albuterol (Albuterol Hfa 8 Gm Inhaler) 1 - 2 puffs INH Q4H PRN PRN Reason: sob Stop: 05/17/22 15:08 Albuterol (Albut/Ipratrop 3mg/0.5mg Neb 3 Ml Vial) 3 ml NEB Q2H PRN PRN Reason: Shortness of Breath/Wheezing Stop: 05/17/22 15:08 Aspirin (Aspirin 81 Mg Ectab) 81 mg PO QAM KELLIE Stop: 05/19/22 08:59 Last Admin: 04/19/22 08:03 Dose: 81 mg Atorvastatin Calcium (Atorvastatin 40 Mg Tab) 40 mg PO HS KELLIE Stop: 05/19/22 20:59 Clonidine HCl (Clonidine Hcl 0.1 Mg Tab) 0.1 mg PO BID KELLIE Stop: 05/17/22 20:59 Last Admin: 04/19/22 09:26 Dose: 0.1 mg Fluticasone Furoate (Fluticasone Furoate 100mcg 14 Puffs/Inhaler) 1 puffs INH DAILY KELLIE Stop: 05/18/22 08:59 Last Admin: 04/19/22 08:03 Dose: 1 puffs Furosemide (Furosemide 40 Mg/4 Ml Vial) 40 mg IV [id number] KELLIE Stop: 05/18/22 17:44 Last Admin: 04/19/22 08:04 Dose: 40 mg Guaifenesin (Guaifenesin 600 Mg Tabcr) 1,200 mg PO BID KELLIE Stop: 05/17/22 20:59 Last Admin: 04/19/22 09:27 Dose: 1,200 mg Doxycycline Hyclate 100 mg/ (Dextrose) 110 mls @ 50 mls/hr IV Q12H KELLIE Stop: 04/20/22 23:59 Last Admin: 04/19/22 12:21 Dose: 50 mls/hr Metoprolol Succinate (Metoprolol Succ 25mg Ext Rel Tab) 25 mg PO QAM KELLIE Stop: 05/18/22 08:59 Last Admin: 04/19/22 09:27 Dose: 25 mg Nitroglycerin (Nitroglycerin Sl 0.4 Mg/Tab Tab) 0.4 mg SL PRN PRN PRN Reason: Chest Pain Stop: 05/17/22 15:08 Polyethylene Glycol (Polyethylene (Miralax) 17 Gm Pack) 17 gm PO DAILY PRN PRN Reason: Constipation Stop: 05/17/22 15:08 Prednisone (Prednisone 20 Mg Tab) 40 mg PO DAILY KELLIE Stop: 04/22/22 08:59 Last Admin: 04/19/22 09:26 Dose: 40 mg Sacubitril/Valsartan (Valsartan/Sacubitril 26/24mg Tab) 1 tab PO BID KELLIE Stop: 05/19/22 20:59 Spironolactone (Spironolactone 25 Mg Tab) 25 mg PO QAM KELLIE Stop: 05/19/22 08:59 Last Admin: 04/19/22 08:03 Dose: 25 mg Umeclidinium/Vilanterol (Umeclidinium/Vilanterol 62.5/25mcg 7 Puffs/Inhaler) 1 puffs INH DAILY KELLIE Stop: 05/18/22 08:59 Last Admin: 04/19/22 08:03 Dose: 1 puffs Valacyclovir HCl (Valacyclovir Hcl 500 Mg Tablet) 2,000 mg PO BID PRN PRN Reason: Cold Sores Stop: 04/27/22 15:08 Venlafaxine HCl (Venlafaxine Hcl Xr 150 Mg Capxr) 150 mg PO DAILY KELLIE Stop: 05/18/22 08:59 Last Admin: 04/19/22 09:27 Dose: 150 mg PG Care Time/CCT Total # of Minutes Spent Total Time Spent with Patient: Total time spent is greater than 50% in coordination of care (as documented) at patient's floor/unit and/or counseling patient: Coding Level of Care Code 74182 Subseq Hosp Care Lvl 3 Diagnoses Acute HFrEF (heart failure with reduced ejection fraction) I50.21 Cardiomyopathy I42.9 CAD (coronary artery disease) I25.10 Elevated troponin R77.8 Chest pain R07.9 Mitral regurgitation I34.0 Dyslipidemia E78.5 Hypertension I10 Tobacco dependence F17.200 Pericardial effusion I31.39
--- NOTE | 2022-04-19 19:32 | Billing Data ---
Date of Service April 19, 2022 Coding Level of Care Code 13661 Subseq Hosp Care Lvl 3
[2022-04-19] MEDS: VALSARTAN/SACUBITRIL 26/24MG TAB PO SCH (20:04)
[2022-04-19] MEDS ORDERED: ATORVASTATIN 40 MG TAB PO SCH (21:00)
[2022-04-20] MEDS: DOXYCYCLINE HYCLATE 100 MG in DEXTROSE 5% 100 ML IV SCH (00:19)
[2022-04-20 06:13] LABS: BUN Creatinine Ratio 31.8 (10-20); Calcium 9.1 mg/dl (8.5-10.1); Creatinine Clr Calc Pharmacy 45.8 ml/min; Est GFR (African American) 59.7 ml/min; Est GFR (Non-African American) 51.5 ml/min; Potassium 3.6 mmol/L (3.5-5.1)
--- NOTE | 2022-04-20 06:50 | Discharge Summary ---
Date of Service April 20, 2022 Admission HPI Per Admitting Provider Matilda Jennings is a 66-year-old female with a past medical history significant for COPD, bladder cancer, depression and anxiety, dyslipidemia, hypertension, who presents today with shortness of breath complaints of feeling generally ill. Starting Friday, she developed body aches, cough, and nasal congestion. Over the next day or so, she began to experience chills and felt like she had a fever at home. Her symptoms have gradually worsened and she is feeling short of breath and having a hard time laying flat due to shortness of breath and cough. No one at home is sick and she denies any known exposure to COVID or flu positive people. Does have a history of COPD and continues to smoke 1/3 pack/day, has Trelegy inhaler prescribed once daily with rescue inhaler as needed. She typically does not use either of these, but for the past week has been relying on both with minimal improvement. She is becoming winded with minimal activity and can no longer take care of her self at home. Patient denies any specific chest pain at this moment or over the past few days, but does report for the past several months she has had chest fullness "like an elephant is on my chest" that last for several hours before going away on its own. This happens both at rest and with activity it does not seem to be exacerbated by either. Again, not having any current chest pain, back pain, shoulder/arm/neck/jaw pain. No nausea, vomiting, abdominal pain, urinary symptoms. Upon presentation to the ED, she is mildly hypertensive, otherwise vital signs within normal limits and stable. SpO2 >90% on room air. Labs largely unremarkable, she does not have an elevated WBC, elevated Pro-Félix, and is COVID/flu/RSV negative. Initial troponin elevated at 40, repeat troponin slightly increased to 43. Her CXR shows interstitial thickening suggestive of pulmonary edema and small bilateral pleural effusions. Admission Exam Per Admitting Provider General: awake, alert, no apparent distress but anxious appearing at times Head: Normocephalic, atraumatic ENT: PERRL, EOMI, no pharyngeal exudate, mucous membranes moist Chest: Expiratory wheezes heard throughout lung [place], lung sounds decreased at bilateral bases, dyspneic shortly after completing breathing treatment, however now on cell phone and conversating more easily and comfortably Cardiac: Regular rate and rhythm, no murmur, no JVD, normal peripheral pulses, good capillary refill Abdominal: NABS x 4 quadrants, soft, nontender to palpation, no rebound, guarding or tenderness Extremities: Normal inspection, no peripheral edema or erythema, calfs nontender to palpation Psych: Normal mood and affect Neuro: AAO x 3, strength intact bilaterally and rated 5/5, no motor deficits, speech is clear, no peripheral sensory deficits Skin: no rash or erythema Principal Diagnosis CHF Exacerbation Discharge Exam Constitutional WD/WN, vitals as above Eyes PERRL, conjunctivae normal, anicteric sclerae ENMT external ear and nose normal, oropharynx normal Neck trachea midline, no thyromegaly Respiratory normal respiratory effort, lungs clear to auscultation Cardiovascular RRR, no murmur, no edema Gastrointestinal (Abdomen) normal bowel sounds, soft, nontender, no hepatosplenomegaly Skin no rashes, warm and dry Discharge Data Allergies Allergy/AdvReac Type Severity Reaction Status Date / Time No Known Drug Allergies Allergy Verified 11/22/21 13:25 Consultations 04/17/22 12:26 ED Decision to Admit Stat 04/17/22 16:20 Consult Cardiology Routine 04/18/22 15:24 [facility] Referral Routine Procedures Performed Operation Date: 04/18/22 13:00 Actual Procedures p Cineradiography w/Routine Exam - Juan M Perla MD s Cath, Right and Left Heart - Juan M Perla MD Ordered Studies 04/18/22 11:41 CL Cath Imgs for PACS use only Routine Hospital Course (1) Heart failure: -Patient described 1 week worsening SOB laying down, admit on 3L O2 -symptoms improved with lasix 20mg IV in ED -Echo: EF 30-35%, mod to sev reduced LV function, global hypokinesis, see chart for read -CXR: Interstitial thickening suggestive of pulmonary edema. Small bilateral pleural effusions. Associated bibasilar opacities favor atelectasis however pneumonia could appear similar. Radiographic follow-up is recommended. -started on daily lasix 40mg IV until SOB resolved, stopped 04/19 -cardiology consulted cardiac cath performed, no significant CAD found started spironolactone 25mg daily started entresto 1 tab BID started empagliflozin 10mg daily increased metoprolol succinate 50mg daily started atorvastatin 40mg daily referral placed to heart failure clinic -stopped lisinopril -stopped simvastatin -patient educated on exercise, decrease salt intake, daily weights to monitor fluids -Patient to f/u with cardiology in 1 week, follow up with PCP upon discharge (2) Elevated troponin: - Max elevated to 43 downtrending - EKG: Normal sinus rhythm Possible Left atrial enlargement Left axis deviation Left bundle branch block Abnormal ECG When compared with ECG of 17-APR-2022 10:16, (unconfirmed) No significant change was found - LBBB is not a new finding, previously seen on EKG from 2019. - she previously followed with cardiology, last seen in 2019 for LBBB and atypical chest discomfort, at that point was only occurring at rest. * Nuclear stress test August 2019: Abnormal, suggesting anteroseptal infarction based lateral infarct, moderately reduced LV SF, EF 39% with global hypokinesis. * Echo September 2019: Lownormal LV systolic function with no regional wall motion abnormalities. Mild-moderate MR. - Consulted cardiology. (3) COPD exacerbation: - Patient has 5 days of flulike symptoms including fever/chills, cough, congestion, shortness of breath, body aches. - History of COPD, has rescue inhaler as needed and Trelegy which she also uses as needed (not used for several months), however has been taking daily this week with minimal alleviation. - CXR shows interstitial thickening stress of pulmonary edema, bibasilar atelectasis, no obvious pneumonia. - COVID/flu/RSV negative, bio fire respiratory panel negative. - Labs are largely unrevealing, neg leukocytosis lactate procal - In the ED, received nebulizer treatment and 10 mg IV dexamethasone, felt slightly better, was diagnosed with COPD exacerbation - Was started on Solu-Medrol 40 mg every 8 hours, DuoNebs scheduled and as needed, continue home inhalers, doxycycline twice daily (QTC of 523). As of 04/19, symptoms determined to be largely from CHF exacerbation, unlikely to be COPD. DC'd steroids, abx (4) History of tobacco use: - Currently smoking 1/3 pack/day and declines nicotine patch while admitted. - Patient educated on tobacco cessation to avoid further COPD exacerbations and hospitalizations. (5) Bladder neoplasm of uncertain malignant potential: - History of such, undergoes surveillance cystoscopies, last on 02/06/2022. We will continue to follow-up annually. (6) Prediabetes: - Hold metformin. A1c in October was 5.9%. here 5.5 (7) Dyslipidemia: - switched to atorvastatin (8) Hypertension: - Continue clonidine 0.1 mg twice daily, metoprolol 50 mg in a.m., -started on entresto, spironolactone, lasix (9) Depression with anxiety: - Continue venlafaxine. Total Time Total Time Spent Total Time Spent (In Minutes): <30 Discharge Plan Discharge Items Patient Disposition: Home - Self-Care Reason For Visit: COPD EXACERBATION Discharge Diagnosis: CHF exacerbation Activity: Resume your previous activity Non-emergency contact: Primary Care Provider Call non-emergency contact if: you have any medication questions, your symptoms worsen and you have a fever Follow-up/Referrals: Anabela Echevarria DO [Primary Care Provider] - Anjana Olea PA-C [Physician Range Conservationist] - 04/26/22 11:30 am (Congestive Heart Failure Program Appointment Information Early follow up is essential to managing your heart failure. An appointment has been scheduled for you with the [facility] Heart Failure Program within 7 days of discharge. Anticipate this visit to be 30-60 minutes long. Please expect a cyber ops planner phone call from one of our nurses approximately 48 hours from discharge. They will also be placing an order for lab work to be completed 1-2 days prior to your heart failure follow up appointment. Please be sure to have this done so we can go over the results when you come in. Office Location The cardiology office building is located in front of the hospital at [address] [facility] [facility]. Bring the following with you to your follow-up doctor appointments: Please bring your daily weight log any discharge paperwork all of your medication bottles with you to this visit. ) Diet: Heart Healthy Addtl Attending Provider Instructions: You were admitted to the hospital for difficulty breathing. You were found to have heart failure, and were treated with peeing medication to remove the extra fluid in your lungs. You were seen by cardiology, who started you on various heart protective medication to better manage your heart failure. A discharge summary will be sent to your primary care physician to ensure continuity of care. Please bring this discharge summary with you to your next office appointment so that your provider can review it at that time. Follow-up appointments: Make a follow-up appointment with your PCP within the next week. It is very important that you follow up with them shortly after discharge from the hospital. We have arranged an appointment with Cardiology for you in 1 week. Keep all your follow-up appointments as already scheduled. If you cannot make an appointment, notify your provider. Medications: Your medication list has been reviewed and reconciled upon discharge to ensure a ccuracy and continuity of care. An updated list of all your medications is included with your hospital discharge paperwork. Please review this list closely, and make note of any changes. * Please take Furosemide 40mg 1 tablet daily * Please take Spironolactone 25mg 1 tablet daily * Please take Entresto 1 tab twice a day * Please take Aspirin 81mg 1 tablet daily * Please take Atorvastatin 40mg 1 tablet daily * We have increased your metoprolol succinate to 50mg daily * Please stop your lisinopril * Please stop your simvastatin Take your medications as instructed; do not skip a dose of your medicines. Make sure all of your doctors know every medicine you are taking (including pmbf-hzw-lftgart medicines, vitamins, and supplements). Call your primary care provider before taking any new medicines (including svin-rjb-ndkdamp medicines, vitamins, and supplements), because some of these may interact with your current medications, or may make your symptoms worse. Tell your primary care provider if you cannot afford your medications. CONTACT YOUR PRIMARY CARE PROVIDER if you experience any of the following: Difficulty breathing laying down Increased swelling in your legs Difficulty following your treatment plan, or difficulty taking medications CALL 911 OR GO TO THE EMERGENCY DEPARTMENT if you experience any of the following: Sudden, severe abdominal pain or nausea/vomiting Severe chest pain, or chest pain that radiates (moves) to your jaw or arm Sudden, severe shortness of breath or difficulty breathing Thank you for allowing us to participate in your care. Congestive Heart Failure: Discharge Instructions Congestive Heart Failure essentially means your heart is able to have a "traffic jam" of fluid that backs up into your lungs. Fluid in lungs then blocks up breathing space making you feel short of breath. In the hospital, our job is to get the fluid off so that you are able to breathe better, and then get you back on track with medication and lifestyle adjustments to keep the traffic jam from happening again. Salt (Sodium) The vast majority of people admitted to the hospital with fluid back up into the lungs get there because of too much salt in their diet. The way our kidneys work: when you take a small amount of sodium, your kidneys hold onto a small amount of water. When you take a large amount of sodium, your kidneys hold onto a large amount of water. When this happens, your blood vessels get flooded, your heart gets overfilled, and the fluid backs up into your lungs. Most people know to avoid the salt shaker, but sodium is in almost anything prepackaged/prepared, as a preservative or as a flavoring agent. Most of the people we take care of who are here with congestive heart failure caused by too much sodium do not use a salt shaker at all. Get into the habit of looking at food labels, so you can see how much sodium is in the foods you eat. The most important number to look at is how much sodium is in each serving. But also notice the size of a serving. Food Contur will frequently make a serving size so tiny that it does not look like there is much sodium per serving, but a normal person might eat 3 or 4 servings of the food and take in a lot more sodium than they realized. Keep a "budget" of how much sodium you take in in each day. Most people stay out of trouble and stay out of the hospital as long as they stay "under budget". The majority of congestive heart failure patients do well if they take less than 2000 mg of sodium a day. Because our kidneys retain water based on how much sodium they are seeing in any given moment, it is also important to stay at less than about 500 mg in any given meal. This is because even if you stayed at less than 2000 mg of sodium, but ate it all at once, your kidneys would retain fluid at a rate as though you are taking in much more sodium than you actually are. Occasionally your doctor may specifically recommend restricting even further (such as less than 1500mg per day) so if you have been told to be even stricter with sodium, please follow that advice. -Following How You Are Doing (Wet Versus Dry) Because managing congestive heart failure is an ongoing process, it is very important to learn how to follow your signs and symptoms and track how you are doing at home. This will allow you to catch problems before they become a big deal. In general, as your health care team, we look at managing congestive heart failure chronically as a balance of being "wet" (flooded with fluid) versus being "dry" (dehydrated from treatment). Wet - signs of fluid retention that would warrant further evaluation: Check your weight daily. If your weight goes up by more than 2 pounds in 1 day, it is almost certainly fluid related. This should warrant further thought, and/or a call to your doctor Follow your breathingmost of the time, early on when fluid backs up into your lungs, you will first start to notice shortness of breath when walking, or when lying flat. If you notice either of these, this should warrant further thought, and/or a call to your doctor If you notice both an increase in weight and worsening breathing, that definitely warrants getting seen as soon as possible "Dry"while the goal of managing the disease is to keep you from getting "wet, the medications can sometimes cause a degree of dehydration. Most people with congestive heart failure need frequent lab work (basic metabolic panel). Generally when there has been a change in diuretic dosing (a change in the water pill) or any other major changes, lab work should be followed closely and more frequently afterwards. This is because lab work will frequently show early signs of dehydration before you start to feel bad. Frequent symptoms of being dehydrated include: feeling weak and lightheaded, having lower blood pressures, making less urine than usual, or having a very dry mouth. If you notice any of these signs/symptoms, and you are not due for lab work, it would be quite reasonable to call your doctor to see if lab work or a visit could be arranged. Heart Failure Management Checklist: Limit Salt (Sodium) Intake to 2000mg (2g) per day and 500mg (0.5g) per meal Check weight daily (in same clothes, without shoes) every morning Use the provided chart to enter your weight and salt intake for the day Are you too wet? If you gained 2lb or more - make sure to take your water pill If your breathing is not good (you are more short of breath than usual) call your doctor regardless of weight change If you gained 2lb or more and you are short of breath, see your doctor or come to the emergency room Are you too dry? If you feel weak or lightheaded, have lower blood pressures, make less urine than usual, or have a very dry mouth. Call your doctor Addtl Executive Manager Provider Instructions: Call your Primary Care doctor if any of the following symptoms or problems start or get worse: * Shortness of breath or difficulty breathing * Wake up at night short of breath * Chest pain * Cough * Swelling of your hands, feet, or legs * More fatigued or tired with your normal activity * Palpitations - sudden fast heart beats WEIGHT * Weigh yourself every morning after using the bathroom. * Use the same scale. * Wear the same amount of clothing. * Write your weight down on a chart. * Call your Primary Care doctor if you gain more than 2-3 pounds in 1-2 days. MEDICATIONS * Use this discharge instruction sheet for medication instructions. * Take your medications at the time your doctor ordered. * Do not skip a dose of your medicines. * If you miss a dose of medicine, take it as soon as possible, but DO NOT DOUBLE A DOSE. * Read your medicine information when you get home. * Know all of the side effects of your medicine. If in doubt, ask your pharmacist * Call your Primary Care doctor's office if you have any side effects. * Be sure all of your doctors know what medicine and herbs you take (including cold, flu, and herbal medicine). Take the following with you to your follow-up doctor appointments: * Weight Chart * Medication List * List of questions Do not drink excessive alcohol, beer or wine. Pending Studies at Discharge: Yes Studies:: CATHY HUGGINS Stand-Alone Forms: [facility] C[facility] Medications and DC Order Prescriptions: New Entresto 24-26 mg tablet 1 tab PO BID Qty: 60 0RF metoprolol succinate 50 mg Tablet Extended Release 24 Hr 50 mg PO QAM 30 Days Qty: 30 0RF atorvastatin 40 mg Tablet 40 mg PO HS 30 Days Qty: 30 0RF spironolactone 25 mg Tablet 25 mg PO QAM 30 Days Qty: 30 0RF aspirin 81 mg Tablet,Delayed Release (Dr/Ec) 81 mg PO QAM 30 Days Qty: 30 0RF furosemide 40 mg Tablet 40 mg PO QAM 30 Days Qty: 30 0RF Jardiance 10 mg Tablet 10 mg PO DAILY 30 Days Qty: 30 0RF Continued metformin 1,000 mg tablet 1,000 mg PO QAM Qty: 90 1RF clonidine HCl 0.1 mg tablet 0.1 mg PO BID Qty: 180 1RF valacyclovir 1 gram tablet 2,000 mg PO BID PRN (Reason: Cold Sores) Qty: 30 1RF venlafaxine 150 mg capsule,extended release 24hr 150 mg PO DAILY Qty: 30 5RF albuterol sulfate [Ventolin HFA] 90 mcg/actuation HFA aerosol inhaler 1 puff inhalation Q4H PRN (Reason: sob) Qty: 8.5 4RF Rx Instructions: 1-2 puffs every 4-6 hrs as needed cough/wheezing/sob Trelegy Ellipta 100-62.5-25 mcg blister with device 1 inh INH QAM Qty: 3 1RF Discontinued metoprolol succinate 25 mg tablet extended release 24 hr 25 mg PO QAM Qty: 90 3RF simvastatin 20 mg tablet 20 mg PO QAM Qty: 90 1RF lisinopril 5 mg tablet 5 mg PO QAM Discharge Orders: Discharge Order (Routine); Ordered 04/20/22 Ordered By: Katie Reynolds/Other Patient Handouts: Eating Heart-Healthy Foods Admission Data Admit Date/Time: 04/18/22 19:27 Attending Provider: Dustin Godinez Admit Provider: Kavon Pope Primary Care Provider: Anabela Echevarria Other Providers: Kavon Pope ; Juan M Perla ; Anjana Olea Other Interventions: Discharge Summary Assessment (RN) Last Done: 04/20/22 10:51 Supervising Physician Co-Signing Physician Notes I personally examined the patient and verified all hughes points of history and exam, discussed case, and agree with decision making with Dr La. Lightheaded has improved. Feels up to going home. Extensive discussion on looking for wet versus dry, as well as lifestyle change, diet and exercise. Vitals noted, in general she is awake and alert pleasant no distress. HEENT normocephalic atraumatic mucous membranes moist. Breathing unlabored no accessory muscle use good effort. Skin shows no rashes no pallor or icterus. Neuro without focal deficits. Acute on probably chronic HFrEF causing acute hypoxic respiratory failure present on admissiondiuresis, afterload reduction, SGLT2. Doing well. Safe fo r home. Med management, lifestyle change/diet and exercise, CHF clinic follow- up. Otherwise as above Resident Activity Tracking Resident Involvement: Resident Care Provided Care Provided: Adult Hospital Medicine
--- NOTE | 2022-04-20 08:41 | Cardiology Progress Note ---
Date of Service April 20, 2022 Assessment & Plan (1) Acute HFrEF (heart failure with reduced ejection fraction): (2) Cardiomyopathy: (3) CAD (coronary artery disease): (4) Elevated troponin: (5) Chest pain: (6) Mitral regurgitation: (7) Dyslipidemia: (8) Hypertension: (9) Tobacco dependence: (10) Pericardial effusion: Plan ASSESSMENT/PLAN: 1. Acute heart failure with reduced EF: Fluid balance has not been accurate but clinically she is much improved. She appears euvolemic on exam. Start Lasix 40 mg p.o. daily which can be used on discharge. Continue spironolactone 25 mg daily, Entresto, metoprolol succinate, and Jardiance on discharge. Increased metoprolol succinate to 50 mg today. Medications can be further adjusted in the outpatient setting. We discussed the importance of a low-sodium diet, less than 2000 mg daily. Daily weights and bring them to her next appointment. Follow-up in the heart failure program within 1 week. 2. Cardiomyopathy: Nonischemic. Secondary work-up ordered. If LV systolic function does not improve with optimized medical therapy, would recommend ICD for primary prevention in the future. 3. CAD: Nonobstructive. Aspirin 81 mg daily. No angina. High intensity statin therapy. Beta-mary. 4. Elevated troponin: Only minimally elevated and flat trend. Likely due to demand ischemia. 5. Chest pain: Chronic and stable symptom. Chest pain not consistent with ischemic heart disease. 6. Mitral regurgitation: Chronic. Eccentric and likely moderate. Continue to monitor. 7. Dyslipidemia: Continue statin therapy. LDL has been well controlled. Simvastatin has been replaced with high intensity statin therapy. 8. Hypertension: Blood pressure well controlled. Continue plan as above. 9. Tobacco abuse: Smoking cessation. 10. COPD: COPD most recently described as moderate on PFT's in March of 2021. Symptoms have improved with diuresis and medications for COPD. Defer COPD management to primary hospitalist. 11. Pericardial effusion: She clinically is not in tamponade. Pericardial effusion noted on September 2019 echo. Can monitor over time. 12. Disposition: Can be discharged from cardiology standpoint. Patient care and discharge cardiology medications communicated with Dr. Godinez of the primary hospitalist service. Follow up in HF program within 1 week with Anjana Olea. Admission and Anticipated Discharge Date Admission Date: April 18, 2022 Subjective She feels very well this morning. She denies orthopnea, shortness of breath, chest pain, syncope, lightheadedness, edema, or bleeding. She has not yet ambulated in the hallway. She feels episodes of anxiety intermittently. She feels ready to go home. She has met with Anjana Olea of the heart failure program. She was alone in her hospital room. Physical Exam Physical Exam: Gen.: No acute distress. Alert and oriented. HEENT: Anicteric sclera. Neck: No appreciable JVD or hepatojugular reflux. Cardiac: No ventricular heave. Regular. Normal heart rate. Normal S1-S2. 1/6 systolic murmur. No rubs or gallops. Pulmonary: Clear to auscultation bilaterally without wheezes, rales, or rhonchi. Abdomen: Soft, nontender, nondistended, with normoactive bowel sounds. No bruits noted. Extremities: 2+ radial pulses bilaterally. Right radial cath site is clean, dry, and intact without erythema or discharge. 2+ posterior tibialis pulses bilaterally. No significant pitting edema. No cyanosis. Psychiatric: Affect appears appropriate. Results & Data ([facility]) Vital Signs (Past 12 Hours) Vital Signs Temp Pulse Pulse Resp BP Pulse Ox O2 Del Method 04/20/22 07:25 36.3 C L 65 18 125/77 95 Room Air 04/20/22 03:29 36.5 C 59 L 18 111/64 92 Room Air 04/20/22 00:00 76 04/19/22 23:05 36.6 C 76 18 127/74 96 Room Air Intake & Output 04/18/22 04/19/22 04/20/22 04/21/22 06:59 06:59 06:59 06:59 Intake Total 1549.4 / 1549.4 595 / 595 920 / 920 Output Total 1850 / 1850 700 / 700 900 / 900 Balance 1549.4 / 1549.4 -1255 / -1255 220 / 220 -900 / -900 Weight 158 lb 11.725 oz 152 lb 1.903 oz Laboratory Results Laboratory Results - last 24 hr 04/20/22 05:34 Sodium 140 Potassium 3.6 Chloride 108 H Carbon Dioxide 24 Anion Gap 8 BUN 35 H Creatinine 1.10 Est Cr Clr Drug Dosing 45.8 Est GFR ( Amer) 59.7 Est GFR (Non-Af Amer) 51.5 BUN/Creatinine Ratio 31.8 H Glucose 95 Calcium 9.1 Diagnostic Findings Telemetry personally reviewed: Sinus rhythm. Medications Administered Current Inpatient Medications Acetaminophen (Acetaminophen 325 Mg Tab) 650 mg PO Q4H PRN PRN Reason: Pain or Fever Stop: 05/17/22 15:08 Al Hydrox/Mg Hydrox/Simethicone (Aluminum/Magnesium Susp 30 Ml Udc) 15 ml PO Q4H PRN PRN Reason: Dyspepsia Stop: 05/17/22 15:08 Albuterol (Albuterol Hfa 8 Gm Inhaler) 1 - 2 puffs INH Q4H PRN PRN Reason: sob Stop: 05/17/22 15:08 Albuterol (Albut/Ipratrop 3mg/0.5mg Neb 3 Ml Vial) 3 ml NEB Q2H PRN PRN Reason: Shortness of Breath/Wheezing Stop: 05/17/22 15:08 Aspirin (Aspirin 81 Mg Ectab) 81 mg PO QAM KELLIE Stop: 05/19/22 08:59 Last Admin: 04/19/22 08:03 Dose: 81 mg Atorvastatin Calcium (Atorvastatin 40 Mg Tab) 40 mg PO HS KELLIE Stop: 05/19/22 20:59 Last Admin: 04/19/22 20:05 Dose: 40 mg Clonidine HCl (Clonidine Hcl 0.1 Mg Tab) 0.1 mg PO BID KELLIE Stop: 05/17/22 20:59 Last Admin: 04/19/22 20:05 Dose: 0.1 mg Empagliflozin (Empagliflozin 10 Mg Tab) 10 mg PO DAILY KELLIE Stop: 05/20/22 08:59 Fluticasone Furoate (Fluticasone Furoate 100mcg 14 Puffs/Inhaler) 1 puffs INH DAILY KELLIE Stop: 05/18/22 08:59 Last Admin: 04/19/22 08:03 Dose: 1 puffs Guaifenesin (Guaifenesin 600 Mg Tabcr) 1,200 mg PO BID KELLIE Stop: 05/17/22 20:59 Last Admin: 04/19/22 20:05 Dose: 1,200 mg Metoprolol Succinate (Metoprolol Succ 25mg Ext Rel Tab) 25 mg PO QAM KELLIE Stop: 05/18/22 08:59 Last Admin: 04/19/22 09:27 Dose: 25 mg Nitroglycerin (Nitroglycerin Sl 0.4 Mg/Tab Tab) 0.4 mg SL PRN PRN PRN Reason: Chest Pain Stop: 05/17/22 15:08 Polyethylene Glycol (Polyethylene (Miralax) 17 Gm Pack) 17 gm PO DAILY PRN PRN Reason: Constipation Stop: 05/17/22 15:08 Sacubitril/Valsartan (Valsartan/Sacubitril 26/24mg Tab) 1 tab PO BID KELLIE Stop: 05/19/22 20:59 Last Admin: 04/19/22 20:04 Dose: 1 tab Spironolactone (Spironolactone 25 Mg Tab) 25 mg PO QAM KELLIE Stop: 05/19/22 08:59 Last Admin: 04/19/22 08:03 Dose: 25 mg Umeclidinium/Vilanterol (Umeclidinium/Vilanterol 62.5/25mcg 7 Puffs/Inhaler) 1 puffs INH DAILY [facility] Stop: 05/18/22 08:59 Last Admin: 04/19/22 08:03 Dose: 1 puffs Valacyclovir HCl (Valacyclovir Hcl 500 Mg Tablet) 2,000 mg PO BID PRN PRN Reason: Cold Sores Stop: 04/27/22 15:08 Venlafaxine HCl (Venlafaxine Hcl Xr 150 Mg Capxr) 150 mg PO DAILY [facility] Stop: 05/18/22 08:59 Last Admin: 04/19/22 09:27 Dose: 150 mg PG Care Time/CCT Total # of Minutes Spent Total Time Spent with Patient: Total time spent is greater than 50% in coordination of care (as documented) at patient's floor/unit and/or counseling patient: Coding Level of Care Code 23241 Subseq Hosp Care Lvl 3 Diagnoses Acute HFrEF (heart failure with reduced ejection fraction) I50.21 Cardiomyopathy I42.9 CAD (coronary artery disease) I25.10 Elevated troponin R77.8 Chest pain R07.9 Mitral regurgitation I34.0 Dyslipidemia E78.5 Hypertension I10 Tobacco dependence F17.200 Pericardial effusion I31.39
[2022-04-20] MEDS ORDERED: FUROSEMIDE 40 MG TAB PO SCH (09:00)
[2022-04-20] MEDS ORDERED: EMPAGLIFLOZIN 10 MG TAB PO SCH (09:00)
[2022-04-20] MEDS ORDERED: METOPROLOL SUCC 50MG EXT REL TAB PO SCH (09:00)
[2022-04-20] MEDS: ASPIRIN 81 MG ECTAB PO SCH (09:14)
[2022-04-20] MEDS: guaiFENesin 600 MG TABCR PO SCH (09:15)
[2022-04-20] MEDS: FLUTICASONE FUROATE 100MCG 14 PUFFS/INHALER INH SCH (09:15)
[2022-04-20] MEDS: VALSARTAN/SACUBITRIL 26/24MG TAB PO SCH (09:16)
[2022-04-20] MEDS: UMECLIDINIUM/VILANTEROL 62.5/25MCG 7 PUFFS/INHALER INH SCH (09:16)
[2022-04-20] MEDS: SPIRONOLACTONE 25 MG TAB PO SCH (09:16)
[2022-04-20] MEDS: VENLAFAXINE HCL XR 150 MG CAPXR PO SCH (09:17)
[2022-04-20] MEDS: cloNIDine HCL 0.1 MG TAB PO SCH (09:19)
--- NOTE | 2022-04-20 17:37 | Billing Data ---
Date of Service April 20, 2022 Coding Level of Care Code D/C DAY MANAGEMENT <30 MINS
[2022-04-23 16:26] LABS: Albumin 3.4 g/dL (3.8-4.8); Alpha 1 Globulin 0.4 g/dL (0.2-0.3); Angiotensin Converting Enzyme 7 U/L (9-67); Beta-1-Globulin 0.4 g/dL (0.4-0.6); Beta-2-Globulin 0.3 g/dL (0.2-0.5); Gamma Globulin 0.4 g/dL (0.8-1.7); Monoclonal Protein Band 1 DNR g/dL (NONE DETECTED); Monoclonal Protein Band 2 DNR g/dL (NONE DETECTED); Monoclonal Protein Band 3 DNR g/dL (NONE DETECTED); Total Protein 5.7 g/dL (6.1-8.1)
[2022-04-23 17:27] LABS: Creatinine Ur 24 mg/dL (20-275); Protein, Urine Random <4 mg/dL (5-24); Ur Protein/Creat Ratio mg/g NOTE mg/g creat (24-184); Urine Abnormal Protein Band 1 DNR mg/dL (NONE DETECTED); Urine Abnormal Protein Band 2 DNR mg/dL (NONE DETECTED); Urine Abnormal Protein Band 3 DNR mg/dL (NONE DETECTED); Urine Protein/Creatinine Ratio NOTE (0.024-0.184)
== END 2022-04-20 11:55 | disposition home or self-care (01) | DRG 286 ==
LOC: ED 09:59 → 2N 09:59 → SUATTDRO 12:31 → 2N 14:20 → 4W 04-18 16:03